=== PATIENT | female | born 1975 | race Caucasian/White ===

== ENCOUNTER 2018-02-22 14:06 | Emergency (ER) | payer MEDICARE, OTHER ==
--- NOTE | 2018-02-22 16:00 | RAD ---
FOUR VIEWS LEFT KNEE: 02/22/18 HISTORY: Fall with left knee pain. AP, lateral and both oblique views left knee is obtained. Images demonstrate a mildly displaced oblique fracture through the distal left femoral metaphysis. Pr oximal and distal fracture fragments are not significantly displaced. IMPRESSION: Spiral type oblique fracture distal left femoral metaphysis. POS: C
== END 2018-02-22 17:06 | disposition home or self-care (01) ==
LOC: ERS 14:06
DX: S72.345A Nondisplaced spiral fracture of shaft of left femur, initial encounter for closed fracture (principal); W17.89XA Other fall from one level to another, initial encounter

== ENCOUNTER 2018-05-05 18:58 | Inpatient (IN) | payer MEDICARE, OTHER ==
[~2018-05-05 18:58] MED LIST: Heparin 1,000 UNITS/ML VIAL ONE
[2018-05-05] MEDS ORDERED: Ondansetron ODT 4 MG TAB PO PRN (22:55)
[2018-05-05] MEDS ORDERED: Calcium Carbonate 500 MG ChewTAB PO PRN (22:55)
[2018-05-05] MEDS ORDERED: Acetaminophen 500 MG TAB PO PRN (22:55)
[2018-05-05] MEDS ORDERED: Ondansetron PF 4 MG/2 ML Vial IVP PRN (22:55)
[2018-05-05] MEDS ORDERED: [UNRECOGNIZED DRUG - OTHER] IV SCH (23:15)
--- NOTE | 2018-05-05 23:27 | PDOC.FPRHP ---
- History of Present Illness Chief Complaint: weight loss History of Present Illness: 43 yo female with pmhx of longstanding anorexia and bulemia presents from clinic as a direct admit for an acute decline in pt's BMI over the past month. One month ago, pt's BMI was 12, weighing 87 lbs and today at clinic she weight 81 pounds with a BMI of 11. She also recently (February 2018) was evaluated in the ER for a femur fracture and was told to follow-up with ortho however upon trying to go to her appointment, she didn't have her ID and was unable to be seen at her appointment. She is able to walk but still has pain in her left leg with walking. She endorses a chronic hx of fractures 2/2 osteoporosis and frequent falls. She has pins in both hips, prior fractures in both, as well as prior fractures in her left humerus, wrists b/l, and ankles. She states that her eating d/o started in high school after not graduating. She initially started out restricting foods, has tried laxatives in the past, and currently purges after eating. Some days, she doesn't eat at all, and some days when she does eat, she can't help but vomit. She has tried hospitalizations in the past but most recently was being seen by outpatient therapist. Her triggers include being around her father and more recently the stress of the fact that her mom was diagnosed with brain cancer in the summer. She also endorses a pmhx of anxiety and depression. Denies any SI/HI/AVh but endorses a passive hx of thinking about how things would be better if she wasn't around, but also wants people who struggle with what she does, to learn from her. - Allergies/Adverse Reactions Allergies Allergy/AdvReac Type Severity Reaction Status Date / Time No Known Allergies Allergy Unverified 05/05/18 22:56 - History PMHx:Anorexia, Bulimia, Depression, Anxiety, Osteoporosis, Recent left femur fracture PSHx: B/l hip surgery with pin placement 2/2 fractures FHx: Mom-brain cancer, no family hx of eating d/o Social: Lives with brother and mom, father is estranged and is a stressor/ trigger for her eating d/o sx - Review of Systems General: reports: weight/appetite/sleep changes, fatigue. denies: fever/chills ENT: denies: nasal congestion, rhinorrhea Respiratory: denies: cough, congestion, shortness of breath Cardiovascular: denies: chest pain, palpitation Gastrointestinal: reports: vomiting. denies: nausea, diarrhea, abdominal pain Genitourinary: denies: incontinence, dysuria Skin: denies: rashes, lesions Musculoskeletal: reports: pain (left femur, right wrist pain), stiffness (right wrist), swelling (right wrist) Neurological: denies: numbness, syncope Psychological: reports: anxiety, depression - Vital signs BP: 91/60 HR: 71 RR: 18 Tmax: afebrilie Pox: 99% on RA Wt: 36kg (81 lbs) - Physical Exam Constitutional: NAD, awake, alert and oriented HEENT: normocephalic and atraumatic, other (wasting) Heart: RRR, normal S1/S2, no murmurs/rubs/gallops Lungs: CTAB, no respiratory distress, good air movement, no rales/rhonchi, no wheezing, no retractions Abdomen: soft Musculoskeletal: other (frail, unsteady gait) Skin: no rash/lesions Psychiatric: other (depressed mood and congruent affect; speech with regular rate, rhythm, flight of ideas, a&ox3, passive SI, no active plan, no HI/AVH, no delusions, fair insight and judgement, appropriately dressed, agitated/anxious, tearful) FMR H&P: A/P - Problem List (1) Malnutrition due to starvation Current Visit: Yes Status: Acute Code(s): E46 - UNSPECIFIED PROTEIN-CALORIE MALNUTRITION (2) Anorexia nervosa with bulimia Current Visit: Yes Status: Acute Code(s): F50.02 - ANOREXIA NERVOSA, BINGE EATING/PURGING TYPE (3) Anxiety Current Visit: Yes Status: Acute Code(s): F41.9 - ANXIETY DISORDER, UNSPECIFIED (4) Depression Current Visit: Yes Status: Acute Code(s): F32.9 - MAJOR DEPRESSIVE DISORDER , SINGLE EPISODE, UNSPECIFIED (5) Osteoporosis Current Visit: Yes Status: Acute Code(s): M81.0 - AGE-RELATED OSTEOPOROSIS W /O CURRENT PATHOLOGICAL FRACTURE (6) Femur fracture, left Current Visit: Yes Status: Acute Code(s): S72.92XA - UNSP FRACTURE OF LEFT FEMUR, INIT ENCNTR FOR CLOSED FRACTURE - Plan 43 yo f with anorexia/bulimia admitted for malnutrition. #Malnutrition -BMI 11; recent decline from 87 lbsto 81lbs. Ordered baseline labs including cbc , cmp, mg, ph, prealbumin, flp, iron studies, coags, vit b12 and folate. Also ordered an EKG. Placed an order for TPN and a picc line, IV fluids of d5 LR with 20KCL at 75ml/hr. Consulted dietitian and cm for placement after hospitalization. Ordered PT/OT consult as well. Pt is open to considering inpatient vs outpatient rehab. Recommend calling Dr. Coffey in the am for recommendations regarding meds and placement options. Hx of several hospitalizations and outpatient therapy. Unclear if ever admitted to inpatient rehab for eating disorder. Will monitor for refeeding syndrome. Started ensure enlive bid. Recommended that a nurse be at bedside during meals, and for patient to report when she vomits. Ordered daily weights, strict I/O's. #Anorexia/Bulimia-see above #left femur fracture- -consult ortho in am; injury in January 2018. #osteoporosis- -consider starting alendronate. -hx of multiple fractures. #MDE-No active SI. Passive thoughts. Restarted zoloft 100mg BID. Started remeron at night for depressive and appetite stimulant. #Anxiety-see above #Gerd-started protonix daily. DVT prophylaxis: lovenox Code: Full code FMR H&P: Upper Level - Plan Date/Time: 05/05/18 2140 I, [], have evaluated this patient and agree with findings/plan as outlined by property management intern resident. Pertinent changes/additions are listed here. Attending Addendum - Attending Addendum Date/Time: 05/06/18 3510 I personally evaluated the patient and discussed the management with Dr. Glover I agree with the History, Examination, Assessment and Plan documented above with any addition or exceptions noted below. 43 yo female with history of osteoporosis and chronic anorexia admitted to hospital for recent fracture and malnutrition. Patient continues to loose weight. Currently under significant stress related to her mother new diagnosis of "brain cancer." Patient states she has battled with anorexia since 19 years old. Has been in and out of treatment programs both inpatient and outpatient. Last treatment program was several years ago. Reports multiple episodes of emesis. Denies over exercising or laxative abuse. Note increase depression with frequent and spontaneous crying spells. Multiple fractures to upper and lower extremities throughout the year with minimal trauma. Reports thinking about being "better off dying" but denies having a plan. No hallucinations or HI. No past history of suicide attempt. Reports she could never hurt herself and realizes she is very depressed. Interested in getting help. VS reviewed. Anorexia norvosa: Chronic. Interested in inpatient vs outpatient treatment program. Labs pending. Place on tele. EKG to be done. Will monitor for refeeding syndrome. Will start TPN. Based on labs and other findings will need to discuss and determine half-way nutrition goals. Denies a past history of PEG tube. But might need to be discussed if patient refusing to eat and labs concerning. PICC line order placed. Nutrition consulted. Will discussed case with psych in AM. MMD: Intermittent SI noted per history. No suicide attempt reported. No plan at present. Has been on Zoloft for many years. Discussed other options. Will add remeron for now. Does not appear to have other co-morbid conditions as previously diagnosed. Discussed requesting records but patient unsure of names of facilities. Will review case with psych. Mehran
[2018-05-05] MEDS ORDERED: D5 LR w/20 mEq KCL 1,000 ML IV SCH (23:30)
[2018-05-06 04:47] LABS: #Eosinphils 0.1 thou/uL (0.0-0.7); #Lymphocytes 1.3 thou/uL (1.20-3.40); #Monocytes 0.6 thou/uL (0.11-0.59); #Neutrophils 3.7 thou/uL (1.40-6.50); %Basophils 0.6 % (0.0-1.0); %Eosinophils 1.7 % (0.0-10.0); %Lymphocytes 22.3 % (21.0-51.0); %Monocytes 10.2 % (0.0-10.0); %Neutrophils 65.2 % (42.0-75.0); Hemoglobin 12.5 g/dL (12.0-16.0); Mean Corpuscular HGB CONC 32.1 g/dL (32.0-36.0); Mean Corpuscular Volume 96.6 fL (78.0-98.0); Mean Platelet Volume 11.7 fL (7.4-10.4); Platelet Count 128 thou/uL (130-400); Red Blood Cell (RBC) Count 4.03 mill/uL (4.20-5.40); White Blood Cell (WBC) Count 5.7 thou/uL (4.8-10.8)
[2018-05-06 04:54] LABS: Prothrombin Time 13.2 SEC (12.0-14.7)
[2018-05-06 04:55] LABS: PTT 32.6 SEC (22.9-36.1)
[2018-05-06 05:04] LABS: ALT (SGPT) 11 U/L (8-55); AST (SGOT) 25 U/L (5-34); Albumin 3.1 g/dL (3.5-5.0); Alkaline Phosphatase 109 U/L (40-150); Anion Gap 13 mmol/L (10-20); BUN (Urea Nitrogen) 9 mg/dL (7.0-18.7); Bilirubin, Total 0.2 mg/dL (0.2-1.2); Calc. Creatinine Clearance 52 mL/min (70-130); Calcium 8.6 mg/dL (7.8-10.44); Carbon Dioxide 26 mmol/L (22-29); Cardiac Risk 2.2 (Less than 4.5); Chloride 107 mmol/L (98-107); Cholesterol 156 mg/dl (< 200 Desired); Estimated GFR-MDRD 78; Globulin 2.6 g/dL (2.4-3.5); Glucose 94 mg/dL (70-105); HDL Cholesterol 70 mg/dL (>60 Neg Risk); Iron 45 ug/dL (50-170); LDL Cholesterol, Calculated 72 mg/dL; Phosphorus 3.3 mg/dL (2.3-4.7); Potassium 3.5 mmol/L (3.5-5.1); Protein, Total 5.7 g/dL (6.0-8.3); Sodium 142 mmol/L (136-145); Triglycerides 68 mg/dL (Less than 150)
[2018-05-06 07:22] LABS: BHCG - Serum Negative (NEGATIVE); Pregs Control Background? CLEAR/WHITE (CLR/WHITE); Pregs Control Bar Appear? YES (CONTROL BAR)
[2018-05-06 07:50] LABS: Thyroid Stimulating Hormone 0.9608 uIU/mL (0.35-4.94); Vitamin D, 25 Hydroxy 14.6 ng/ml (> 30.0)
--- NOTE | 2018-05-06 08:39 | PDOC.FM ---
- Subjective Subjective: This morning patient states she slept as well as she has in a long time. She denies cp, sob, N/V/D. She is still quite upset about her mother's condition. She says she will consider inpatient treatment - Objective Vital Signs & Weight: Vital Signs (12 hours) Temp Pulse Resp BP BP BP BP 05/06/18 08:25 54 L 70/50 L 05/06/18 08:20 57 L 74/52 L 05/06/18 08:15 97.9 F 51 L 18 82/58 L 05/06/18 05:13 85/55 L 05/06/18 03:54 97.7 F 60 14 78/41 L Pulse Ox 05/06/18 08:25 05/06/18 08:20 05/06/18 08:15 96 05/06/18 05:13 05/06/18 03:54 97 Weight Weight 36.514 kg I&O: 05/05/18 05/06/18 05/07/18 06:59 06:59 06:59 Intake Total 600 Output Total 400 Balance 200 Result Diagrams: 05/06/18 04:29 05/06/18 04:29 <Rishabh De Leon - Last Filed: 05/06/18 08:37> - Objective Vital Signs & Weight: Vital Signs (12 hours) Temp Pulse Resp BP BP BP BP 05/06/18 08:25 54 L 70/50 L 05/06/18 08:20 57 L 74/52 L 05/06/18 08:15 97.9 F 51 L 18 82/58 L 05/06/18 05:13 85/55 L 05/06/18 03:54 97.7 F 60 14 78/41 L Pulse Ox 05/06/18 08:25 05/06/18 08:20 05/06/18 08:15 96 05/06/18 05:13 05/06/18 03:54 97 Weight Weight 36.514 kg I&O: 05/05/18 05/06/18 05/07/18 06:59 06:59 06:59 Intake Total 600 Output Total 400 Balance 200 Result Diagrams: 05/06/18 04:29 05/06/18 04:29 <Jose Rubio - Last Filed: 05/06/18 11:33> Phys Exam - Physical Examination Constitutional: NAD HEENT: PERRLA, moist MMs Respiratory: no wheezing, clear to auscultation bilateral Cardiovascular: RRR, no significant murmur Gastrointestinal: soft, non-tender, no distention, positive bowel sounds Musculoskeletal: pulses present Neurological: non-focal, moves all 4 limbs Skin: no rash, cap refill <2 seconds <Rishabh De Leon - Last Filed: 05/06/18 08:37> Dx/Plan (1) Anorexia nervosa with bulimia Code(s): F50.02 - ANOREXIA NERVOSA, BINGE EATING/PURGING TYPE Status: Acute (2) Anxiety Code(s): F41.9 - ANXIETY DISORDER, UNSPECIFIED Status: Acute (3) Depression Code(s): F32.9 - MAJOR DEPRESSIVE DISORDER, SINGLE EPISODE, UNSPECIFIED Status : Acute (4) Femur fracture, left Code(s): S72.92XA - UNSP FRACTURE OF LEFT FEMUR, INIT ENCNTR FOR CLOSED FRACTURE Status: Acute (5) Malnutrition due to starvation Code(s): E46 - UNSPECIFIED PROTEIN-CALORIE MALNUTRITION Status: Acute (6) Osteoporosis Code(s): M81.0 - AGE-RELATED OSTEOPOROSIS W/O CURRENT PATHOLOGICAL FRACTURE Status: Acute - Plan Plan: #Malnutrition 2/2 Anorexia/Bulimia - low pre-albumin - mag, phos, b12 INR WNL - ordered PICC placement to start TPN - data manager consulted - discussed gravity of patient's condition, she understands she will likely need inpatient treatment, wants brother involved - consult [facility] - ordered echo 2/2 BMI of 11 #left femur fracture- -fall in January 2018, was supposed to follow with ortho, never did - will wait to consult until X-rays taken #osteoporosis- -hx of multiple fractures. #MDE-No active SI. Passive thoughts. Restarted zoloft 100mg BID. Started remeron at night for depressive and appetite stimulant. - zoloft 100mg BID - mirtazapine #Anxiety-see above #Gerd - ppi Code: Full code ppx: lovenox Fluids: D5 LR w/ K at 75 ml/hr Dispo: pending inpatient placement <Rishabh De Leon - Last Filed: 05/06/18 08:37> Attending Addendum - Attending Addendum Date/Time: 05/06/18 1130 I personally evaluated the patient and discussed the management with Dr. Donny De Leon I agree with the History, Examination, Assessment and Plan documented above with any addition or exceptions noted below. Patient for Picc line for TPN , will need Orthopedic consult regard further care evaluation femur fracture. Watch for re feeding syndrome Phosphorous currently wnl. custodial patient would benefit with placement in inpatient facility for feeding disorders, patient agreeable to consider. <Jose Rubio - Last Filed: 05/06/18 11:33>
[2018-05-06] MEDS: Multivit, Chewable SF 1 TAB PO SCH (09:34)
[2018-05-06] MEDS: Enoxaparin Sodium 40 MG/0.4 ML SYRINGE SC SCH (09:34)
--- NOTE | 2018-05-06 11:44 | PQF ---
CLINICAL DOCUMENTATION IMPROVEMENT CLARIFICATION FORM: ICD-10 Updated PLEASE DO AN ADDENDUM TO THE PROGRESS NOTE WITH ANY DOCUMENTATION UPDATES OR ADDITIONS AND CARRY THROUGH TO DC SUMMARY. THANK YOU. Date: 05/06/18 ATTN: DR. OMER Please exercise your independent, professional judgment in responding to the clarification form. Clinical indicators are provided on the bottom of this form for your review Please check appropriate box(s): [ x ] Protein Calorie Malnutrition: [ ] Mild [ ] Moderate [ x ] Severe [ ] Other Malnutrition (please specify) __ [ ] Underweight without malnutrition [ x ] Cachexia [ ] Other diagnosis [ ] Unable to determine In addition, please specify: Present on Admission (POA): [ x ] Yes [ ] No [ ] Unable to determine CLINICAL INDICATORS - SIGNS / SYMPTOMS / LABS H&P DX: "MALNUTRITION DUE TO STARVATION" H&P: "ACUTE DECLINE OF PATIENT'S BMI OVER THE PAST MONTH." H&P: "SOME DAYS, SHE DOESN'T EAT AT ALL, AND SOME DAYS WHEN SHE DOES EAT, SHE CAN'T HELP BUT VOMIT." BMI 10.9 ALBUMIN 3.1 RISKS: ANOREXIA (H&P) BULIMIA (H&P) H/O MULTIPLE FRACTURES H/O ANXIETY AND DEPRESSION H/O SEVERAL HOSPITALIZATIONS AND OUTPATIENT THERAPY (H&P) TREATMENT: DIETARY CONSULT OT CONSULT NURSING SUPERVISION FOR VOMITING / NURSE AT BEDSIDE FOR MEALS DAILY WEIGHTS WITH STRICT I&OS TPN ORDERED IV HYDRATION ENSURE ENLIVE ORDERED BID [employer] Addiction Professional Crystal Reports Winform Viewer Moderate Malnutrition (in acute illness) Energy Intake: <75% of estimated energy requirement for > 7 days Weight Loss: 1-2%/1 week; 5%/ 1 month; 7.5%/3 months Other: mild body fat loss; mild muscle mass loss; mild fluid accumulation; Severe Malnutrition (in acute illness) Energy Intake: < 50% of estimated energy requirement for > 5 days Weight Loss: >1-2%/1 week; >5%/1 month; >7.5%/3 months Other: moderate body fat loss; moderate muscle mass loss; moderate- severe fluid accumulation; measurably reduced sanitarian strength Moderate Malnutrition (in chronic illness) Energy Intake: <75% of estimated energy requirement for >1 month Weight Loss: 5%/1 month; 7.5%/3 months; 10%/6 months; 20%/1 year Other: mild body fat loss; mild muscle mass loss; mild fluid accumulation Severe Malnutrition (in chronic illness) Energy Intake: <75% of estimated energy requirement for >1 month Weight Loss: >5%/1 month; >7.5%/3 months; >10%/6 months; >20%/1 year Other: severe body fat loss; severe muscle mass loss; severe fluid accumulation ; measurably reduced sanitarian strength (This form is maintained as a part of the permanent medical record) 2014 [employer] All Rights Reserved JUSTINA [email or web address] Office: [phone] [email or web address]
[2018-05-06] MEDS: Potassium Chloride 20 MEQ TAB PO SCH ×2 (12:26→17:02)
--- NOTE | 2018-05-06 12:34 | RAD ---
THREE VIEWS RIGHT WRIST: DATE: 05/06/2018. HISTORY: Right wrist pain. COMPARISON: None available. FINDINGS: There is a volar plate and screws transfixing the distal right radius. There is an area of sclerosis also seen within the distal right radial metaphysis and partially obscured due to overlying ulna on the lateral view and obscured due to overlying plate on PA and oblique projections. This may be post surgical in origin as well. There is a remote fracture involving the ulnar styloid process. There i s mild ulnar positive configuration with remote fracture involving the ulnar styloid process. There is osteopenia present. There is osseous bridging seen at the dorsal aspect of the carpal bones which involves the triquetral bone and is probably related to the sequelae of prior injury. IMPRESSION: 1. osteopenia. 2. Internal fixation distal right radius with remote fracture involving the ulnar styloid process. 3. Area of sclerosis in the distal right radial metaphysis of which the exact etiology is uncertain and is difficult to evaluate due to overlying metallic hardware as well as overlying ulna on the late ral view. This is thought to be postsurgical in origin, but clinical correlation is recommended. Di rect comparison with prior studies may also be helpful as well. 4. Remote fracture ulnar styloid process as well as findings likely related to posttraumatic injury involving the dorsal carpal bones with osseous bridging present. POS: [facility]
--- NOTE | 2018-05-06 12:40 | RAD ---
TWO VIEWS LEFT FEMUR: DATE: 05/06/2018. HISTORY: Recent femur fracture. COMPARISON: 04/14/2018. FINDINGS: Again noted is intramedullary nitza with a dynamic compression screw transfixing the left hip. No hard lewis complication is seen. Again noted is the linear nondisplaced obliquely oriented fracture involv ing the distal left femoral diaphysis extending to the region of the metadiaphysis. No additional fr acture is seen and there is no dislocation. Diffuse osteopenia is again present. No other interval change. IMPRESSION: 1. Nondisplaced linear fracture involving the distal left femur stable from prior study. 2. Stable internal fixation left hip. 3. Osteopenia. POS: [facility]
--- NOTE | 2018-05-06 12:52 | SPC ---
ULTRASOUND GUIDED LEFT UPPER EXTREMITY PICC LINE PLACEMENT: 05/06/2018 HISTORY: Malnutrition. TECHNIQUE: After informed consent was obtained, the patient was placed on the angiography table in the supine po sition. The left upper extremity was meticulously prepped and draped in the usual sterile fashion. An appropriate access site was determined with ultrasound guidance. The skin and subcutaneous tissues were infiltrated with buffered 1% Lidocaine for local anesthesia. A small skin incision was made. The left basilic vein was accessed utilizing a micropuncture technKloudless ue and concurrent real-time ultrasound guidance. A 5 Kyrgyz peel-away sheath was placed. The catheter was measured and cut to the appropriate length. The catheter was placed over the guidew laurel with the tip position overlying the cavoatrial junction. The guidewire and peel-away sheath were removed. Each portal on the double-lumen PICC line was accessed and aspirated/flushed easily. The catheter was secured in place utilizing a dry, sterile dressing. The patient tolerated the proce dure well and without immediate complications. TOTAL FLUOROSCOPY TIME: 0.1 minutes TOTAL DOSE: 153 per cm2. FINDINGS: Technically successful placement of a dual-lumen, 5 Kyrgyz, 40 cm PICC line via the left basilic vein . The tip of the catheter overlies the cavoatrial junction. IMPRESSION: Technically successful left upper extremity peripherally inserted central catheter line placement. POS: [facility]
[2018-05-06] MEDS: Gabapentin 300 MG CAP PO SCH ×2 (14:51→20:30)
[2018-05-06] MEDS: Mirtazapine 15 MG TAB PO SCH (20:30)
--- NOTE | 2018-05-06 21:01 | CON ---
HISTORY OF PRESENT ILLNESS: Ms. Raza is a 43-year-old female who is currently admitted for malnutrition. The patient has a history of anorexia and bulimia. She is a direct admit from the clinic. The patient had a femur fracture that occurred sometime in January. Per report, she was seen in February in the ER with films of her knee showing a distal femur fracture. She then lost to follow up. The patient has a history of osteoporosis with frequent falls. The patient has prior intramedullary nailing for intertrochanteric hip fractures bilaterally. The patient has a history of malnourishment secondary to anorexia and bulimia. The patient has had issues with her father as well as she says her mother currently struggling with brain cancer. PAST MEDICAL HISTORY: Includes anorexia, bulimia, depression, anxiety, osteoporosis, bilateral femur fractures. PAST SURGICAL HISTORY: Bilateral hip surgery with open reduction and internal fixation, intramedullary nailing. CURRENT MEDICATIONS: Please see list. ALLERGIES: Include no known drug allergies. SOCIAL HISTORY: Lives with brother, mother, and father is estranged. PHYSICAL EXAMINATION: VITAL SIGNS: Today were 98.1, 58, 16, 90/52. GENERAL: Alert and oriented female, cachectic with diffuse wasting. EXTREMITIES: Focused exam of left lower extremity shows no ecchymosis, no erythema, no effusion of the knee. The patient has severe atrophy of her quadriceps and hamstrings. She is able to bend her knee. She does have pain with torsion of the left leg and pain with palpation. She has got motor intact distally. She has got sluggish cap refill, palpable pulses. LABORATORY AND X-RAY FINDINGS: Radiographs show a left spiral extraarticular fracture of the distal femur. IMPRESSION: 1. Left distal femur fracture. 2. Malnutrition due to her anorexia and bulimia. 3. Anxiety. 4. Depression. ASSESSMENT AND PLAN: The patient will be weightbearing as tolerated with a walker. She has been weightbearing for the last several months. She does have pain with ambulation so we will protect her with walker but given that she is almost likely greater than 3 months out from a fracture and would like to help with consolidation of the fracture, I discussed with given her eating habits and her severe nutrition that she will take much longer to heal this fracture. I will have the patient follow up with me in 6 weeks in clinic. The patient will likely need transfer to a psychiatric unit for continued care. ARNOLD
--- NOTE | 2018-05-07 06:37 | PDOC.FM ---
Addendum entered and electronically signed by Rishabh De Leon MD 05/07/18 07:06: Patient noted to have 3-4 runs of 6 beat NSVT on tele overnight echo read pending Cardiac profile ordered, EKG Will discuss cardiology consult on rounds Original Note: - Subjective Subjective: Patient states she is feeling well this morning, slept well last night. She denies any pain at the moment, was able to walk to the restroom without difficulty. She denies N/V/D or difficulty. Appreciate CM awesome work last night. What patient really needs is placement in a facility specializing in care for eating disorders. If we can obtain placement in one of these facilities she is stable for d/c to one of these facilities. Inpatient rehab would be beneficial for her but the best care would be at one of the aforementioned facilities. - Objective Vital Signs & Weight: Vital Signs (12 hours) Temp Pulse Resp BP Pulse Ox 05/07/18 03:56 97.6 F 52 L 16 99/57 L 100 05/06/18 20:09 98 05/06/18 19:56 98.4 F 68 14 75/48 L 98 Weight Admit Weight 36.514 kg Weight 36.514 kg I&O: 05/05/18 05/06/18 05/07/18 06:59 06:59 06:59 Intake Total 600 1053 Output Total 400 Balance 200 1053 Result Diagrams: 05/06/18 04:29 05/06/18 04:29 <Rishabh De Leon - Last Filed: 05/07/18 06:39> - Objective Vital Signs & Weight: Vital Signs (12 hours) Temp Pulse Resp BP Pulse Ox 05/07/18 03:56 97.6 F 52 L 16 99/57 L 100 Weight Admit Weight 36.514 kg Weight 36.514 kg I&O: 05/06/18 05/07/18 05/08/18 06:59 06:59 06:59 Intake Total 600 1053 Output Total 400 Balance 200 1053 Result Diagrams: 05/06/18 04:29 05/07/18 07:42 <Jose Rubio - Last Filed: 05/07/18 12:42> Phys Exam - Physical Examination Constitutional: NAD HEENT: PERRLA, moist MMs Neck: no nodes Respiratory: no wheezing, clear to auscultation bilateral Cardiovascular: RRR, no significant murmur Gastrointestinal: soft, non-tender, no distention, positive bowel sounds Musculoskeletal: no edema, pulses present Neurological: non-focal, moves all 4 limbs Psychiatric: normal affect, A&O x 3 Skin: no rash, cap refill <2 seconds <Rishabh De Leon - Last Filed: 05/07/18 06:39> Dx/Plan (1) Anorexia nervosa with bulimia Code(s): F50.02 - ANOREXIA NERVOSA, BINGE EATING/PURGING TYPE Status: Acute (2) Anxiety Code(s): F41.9 - ANXIETY DISORDER, UNSPECIFIED Status: Acute (3) Depression Code(s): F32.9 - MAJOR DEPRESSIVE DISORDER, SINGLE EPISODE, UNSPECIFIED Status : Acute (4) Femur fracture, left Code(s): S72.92XA - UNSP FRACTURE OF LEFT FEMUR, INIT ENCNTR FOR CLOSED FRACTURE Status: Acute (5) Malnutrition due to starvation Code(s): E46 - UNSPECIFIED PROTEIN-CALORIE MALNUTRITION Status: Acute (6) Osteoporosis Code(s): M81.0 - AGE-RELATED OSTEOPOROSIS W/O CURRENT PATHOLOGICAL FRACTURE Status: Acute - Plan Plan: # Malnutrition 2/2 Anorexia/Bulimia - low pre-albumin - mag, phos, b12 INR WNL - repeat phos - Vit D low - office manager receptionist consulted, appreciate recs - discussed gravity of patient's condition, she understands she will likely need inpatient treatment, wants brother involved - holding off on TPN for now because she is eating while in the hospital - consult [facility] - ordered echo 2/2 BMI of 11, pending read #left femur fracture- stable - fall in January 2018, was supposed to follow with ortho - Dr. Funez consulted, appreciate recs - rec'd walker, f/u in 6-8 wks #osteoporosis- -hx of multiple fractures. #MDE-No active SI. Passive thoughts. - zoloft 100mg BID - mirtazapine #Anxiety-see above #Gerd - ppi Code: Full code ppx: lovenox Fluids: D5 LR w/ K at 75 ml/hr Dispo: pending inpatient placement <Rishabh De Leon - Last Filed: 05/07/18 06:39> Attending Addendum - Attending Addendum Date/Time: 05/07/18 1241 I personally evaluated the patient and discussed the management with Dr. Bree De Leon I agree with the History, Examination, Assessment and Plan documented above with any addition or exceptions noted below. Appreciate Orthopedic rec continue attempt placement in eating d/o facility verse rehab. <Jose Rubio - Last Filed: 05/07/18 12:42>
[2018-05-07 08:27] LABS: CKMB 2.1 ng/mL (0-6.6); Troponin I Less than 0.010 ng/mL (< 0.028)
[2018-05-07 08:34] LABS: Anion Gap 9 mmol/L (10-20); BUN (Urea Nitrogen) 7 mg/dL (7.0-18.7); Calc. Creatinine Clearance 59 mL/min (70-130); Calcium 8.7 mg/dL (7.8-10.44); Carbon Dioxide 26 mmol/L (22-29); Chloride 111 mmol/L (98-107); Estimated GFR-MDRD 89; Glucose 71 mg/dL (70-105); Phosphorus 2.6 mg/dL (2.3-4.7); Potassium 4.8 mmol/L (3.5-5.1); Sodium 141 mmol/L (136-145)
[2018-05-07] MEDS: Multivit, Chewable SF 1 TAB PO SCH (09:50)
[2018-05-07] MEDS: Gabapentin 300 MG CAP PO SCH ×3 (09:51→21:19)
[2018-05-07] MEDS: Cholecalciferol (Vitamin D3) 400 UNITS TAB PO SCH (09:51)
[2018-05-07] MEDS: Enoxaparin Sodium 40 MG/0.4 ML SYRINGE SC SCH (09:51)
[2018-05-07] MEDS: Potassium Chloride 20 MEQ TAB PO SCH ×3 (09:51→17:40)
[2018-05-07] MEDS: Mirtazapine 15 MG TAB PO SCH (21:19)
--- NOTE | 2018-05-07 22:59 | CON ---
DATE OF CONSULTATION: 05/07/2018 CARDIOLOGY CONSULT ROOM#: [id number] PRIMARY ADMIN SECRETARY: Dr. Latha Lu. REASON FOR CARDIOLOGY CONSULTATION: Status post multiple episodes of six beats of SVT night of the 1 . HISTORY OF PRESENT ILLNESS: Ms. Raza is a 43-year-old female with a significant history of anorexia and bulimia, depression, and history of bilateral hip surgery secondary to fracture. Da penn was a direct admit from clinic for acute decline of patient's BMI over the past month and the C ardiology consult was requested due to the multiple episodes of 6 beats of SVT last night. Patient d enied any chest pain, discomfort, tightness, or palpitation, fluttering in her chest, shortness of br eath, dizziness, lightheadedness, nauseated, or any cardiac complaints prior and during the episodes. She also denied any those cardiac complaints at home. She has a significant long history of anorex ia and bulimia and also complained of bilateral hip. The pain to the bilateral hip due to secondary to the fracture. At this moment, she is eating dinner without any difficulty or nausea or vomiting. During the initial Cardiology consult assessment, patient denied any cardiac complaints. She has ec hocardiogram done on 05/06/2018, which shows ejection fraction of 35%-40%, trace mitral valve regurgi tation and mild tricuspid regurgitation. Patient's EKG on the telemetry floor records showing the si nus rhythm. PAST MEDICAL HISTORY: 1. Anorexia. 2. Bulimia. 3. Depression, anxiety. 4. Osteoporosis. 5. Recent left femur fracture. PAST SURGICAL HISTORY: Bilateral hip surgery in the pin placement secondary to fracture. FAMILY HISTORY: Patient's mother has a history of hypertension and brain cancer. Patient's brother and father has had history of diabetes. SOCIAL HISTORY: She is living with mother and a brother. She smoked at least 10 cigarettes a day. Patient enjoyed alcohol during the holiday and she denied any illicit drug abuse. ALLERGIES: She has no known drug allergies. HOME MEDICATIONS: Sertraline 100 mg one tablet twice a day, potassium chloride 20 mEq one tablet 3 t imes a day, gabapentin 300 mg one tablet 3 times a day. REVIEW OF SYSTEMS: A 12-point review of systems was negative, unless otherwise mentioned in the HPI. PHYSICAL EXAMINATION: VITAL SIGNS: Blood pressure 88/51, pulse is 58 in a sinus rhythm, temperature 97.8, respiratory rate 18, O2 sat 96% on room air. GENERAL: Patient is alert and oriented x4, not in acute distress with malnutrition. HEAD: Normocephalic and atraumatic. EYES: Extraocular muscle movement intact. ENT AND MOUTH: Oral and nasal mucosa are moist without lesion. NECK: Normal range of motion. No JVD and supple. RESPIRATORY: Clear to auscultate bilaterally. CARDIAC: Normal rhythm and rate, normal S1, S2. There are no S3, S4, no murmur, hives, thrill noted . EXTREMITIES: 2+ pulses at bilateral lower extremities. No edema. ABDOMEN: Soft, nontender, or mass to palpate. Positive bowel sounds. MUSCULOSKELETAL: Patient able to move all extremities. Patient denies any claudication. SKIN: Warm and dry. No rash, lesion, or bruise noted. PSYCHIATRIC: Patient is easy to get agitated; however, during the assessment, patient is become calm and smiling. NEUROLOGIC: Nonfocal. PSYCHIATRIC: Appropriate mood. LABORATORY DATA: WBC 5.7, hemoglobin 12.5, hematocrit 38.9, platelet 128. Sodium 141, potassium 4.8 , BUN 7, creatinine is 0.72, calcium 8.7, magnesium 2.6. Troponin negative. Vitamin B12 of 1175, vi tamin D is 14.6. TSH 0.9608. X-ray revealed stable intrafixation of left hip and remote fracture to the ulnar styloid process to the right wrist. ASSESSMENT AND PLAN: 1. Multiple episodes of supraventricular tachycardias. During the episode, patient was asymptomatic and patient's vital signs are stable. Patient has not had any episodes since the episodes. We woul d like to continue to monitor. At this moment on the telemetry if patient started more frequent supr aventricular tachycardia, we might like to start some beta bre, but at this moment, we would like to hold it due to the patient of hypotensive. 2. Anorexia and bulimia, which is defer to the primary care doctor. 3. Anxiety and depression. The patient's condition is stable at this moment. 4. Osteoporosis and a history of left femur fracture. Patient was seen by Dr. George Funez allucero y. Thank you very much for allowing the Cardiology service to participate in the care of this patient. We will follow along the patient care team and make further recommendations as appropriate.
--- NOTE | 2018-05-07 23:52 | CON ---
DATE OF CONSULTATION: 05/07/2018 DATE OF ADMISSION: 05/05/2018 INDICATION FOR CONSULTATION: This is a 43-year-old female with episodes of nonsustained ventricular tachycardia. Please refer to the notes already dictated by my nurse practitioner. We have discussed this with patient together. I would agree with the assessment and plan and I will give further adde ndum to the plan. HISTORY OF PRESENT ILLNESS: This is a very pleasant 43-year-old female who has what appears to be an orexia and bulimia. She was admitted due to malnutrition. She has had increased stress. She has be en using bulimia as a way of weight control for more than 20 years. She has had multiple problems as sociated with this including osteoporosis and hip fractures due to the osteoporosis with her anorexia . She also has a history of depression and anxiety. She was admitted to the hospital for further ev aluation and care, but during the hospital stay, it was noted to have some nonsustained ventricular t achycardia also echocardiogram showed a mild decrease in left ventricular systolic function with ejec tion fraction of some around 35%-40% if I recall, but the dictated note is on chart. Based on this, I was asked to see the patient, discussion with her, she is a heavy smoker. She smoked at least a pa ck to pack and half a day for probably 20 years and based on this, since this is a #1 of cause of cor onary artery disease and given her history of decreased ejection fraction and nonsustained ventricula r tachycardia. I believe, the patient will need to undergo stress testing in order to rule out evide nce for underlying coronary artery disease, as the possible etiology of the decrease in left ventricu lar systolic function as well as a nonsustained ventricular tachycardia. If the stress test is unrem arkable, then we will just add perhaps a low dose of beta blockers, so I just continue to observe her . Most likely, she will be safe with the nonsustained ventricular tachycardia. She is asymptomatic and she denied any palpitations in the past. PAST MEDICAL HISTORY, SOCIAL HISTORY, MEDICATIONS, ALLERGIES, FAMILY HISTORY: Please refer to the no rosalee dictated by the nurse practitioner. PHYSICAL EXAMINATION: GENERAL: Reveals a very thin, emaciated female who is in no acute distress at this time. She is irma y pleasant. VITAL SIGNS: Her blood pressure is 88/51, heart rate is 58. She is afebrile, respiratory rate is 18 . HEENT: Shows head to be normocephalic and atraumatic. Carotid pulses are present. There were no br uits. CHEST: Clear. CARDIOVASCULAR: Exam reveals a regular rate and rhythm. She has a normal S1, S2. I cannot hear any significant murmurs. She does have a soft murmur at the apex, otherwise is unremarkable. ABDOMEN: Flat, soft, no tenderness was noted. EXTREMITIES: All of her extremities are extremely thin and emaciated appearance. Pulses are present . NEUROLOGIC: The patient appears to be intact. LABORATORY DATA: Please refer to the notes dictated. IMPRESSION: 1. Nonsustained ventricular tachycardia in a patient with mild decrease in left ventricular systolic function and history of tobacco abuse. We will suggest that she undergo stress testing to rule out evidence for underlying ischemia. 2. Anorexia and bulimia. This will be dealt with by the primary care service. I believe, she will be sent for MR and most likely eventually, we will need to have significant therapy in the future. 3. History of tobacco abuse, she will be strongly encouraged to stop smoking altogether.
[2018-05-07] MEDS ORDERED: Nicotine 14 MG PATCH TD SCH (23:59)
[2018-05-08 05:22] LABS: Hemoglobin 11.5 g/dL (12.0-16.0); Mean Corpuscular HGB CONC 32.2 g/dL (32.0-36.0); Mean Corpuscular Hemoglobin 31.1 pg (27.0-31.0); Mean Corpuscular Volume 96.4 fL (78.0-98.0); Mean Platelet Volume 11.6 fL (7.4-10.4); Platelet Count 103 thou/uL (130-400); RBC Distribution Width 12.8 % (11.5-14.5); Red Blood Cell (RBC) Count 3.69 mill/uL (4.20-5.40); White Blood Cell (WBC) Count 4.7 thou/uL (4.8-10.8)
[2018-05-08 05:50] LABS: Anion Gap 9 mmol/L (10-20); BUN (Urea Nitrogen) 6 mg/dL (7.0-18.7); Calc. Creatinine Clearance 66 mL/min (70-130); Calcium 8.9 mg/dL (7.8-10.44); Carbon Dioxide 29 mmol/L (22-29); Chloride 110 mmol/L (98-107); Estimated GFR-MDRD Greater than 90; Glucose 81 mg/dL (70-105); Magnesium 1.7 mg/dL (1.6-2.6); Phosphorus 3.2 mg/dL (2.3-4.7); Potassium 4.7 mmol/L (3.5-5.1); Sodium 143 mmol/L (136-145)
[2018-05-08] MEDS: Nicotine 14 MG PATCH TD SCH (06:46)
--- NOTE | 2018-05-08 06:55 | PDOC.FM ---
- Subjective Subjective: Nursing note last night states patient tried to order 3 trays for supper. Patient admits to having an episode of vomiting yesterday and was quite defensive about the event. States "I don't remember what happened, when it happened, or how it happened it just did." After further conversation, she states she always used to use a straw to make herself vomit and has not done that for some time. She denies gagging herself to vomit last night. She denies palpitations, CP, or shortness of breath. No episodes noted on tele overnight. - Objective Vital Signs & Weight: Vital Signs (12 hours) Temp Pulse Resp BP BP Pulse Ox 05/08/18 05:20 98 05/08/18 04:00 97.9 F 60 20 102/60 99 05/08/18 00:40 98.4 F 80 20 102/61 96 05/07/18 20:00 98.2 F 76 20 97/54 L 100 Weight Admit Weight 36.514 kg Weight 40.115 kg I&O: 05/06/18 05/07/18 05/08/18 06:59 06:59 06:59 Intake Total 600 1053 2290 Output Total 400 400 Balance 200 1053 1890 Result Diagrams: 05/08/18 04:49 05/08/18 04:49 <Rishabh De Leon - Last Filed: 05/08/18 06:52> - Objective Vital Signs & Weight: Vital Signs (12 hours) Temp Pulse Resp BP BP BP BP 05/08/18 11:42 98.3 F 69 16 96/64 05/08/18 08:00 97.9 F 53 L 16 83/56 L 85/50 L 99/58 L 05/08/18 05:20 05/08/18 04:00 97.9 F 60 20 102/60 Pulse Ox 05/08/18 11:42 98 05/08/18 08:00 98 05/08/18 05:20 98 05/08/18 04:00 99 Weight Admit Weight 36.514 kg Weight 40.115 kg I&O: 05/07/18 05/08/18 05/09/18 06:59 06:59 06:59 Intake Total 1053 2290 Output Total 400 Balance 1053 1890 Result Diagrams: 05/08/18 04:49 05/08/18 04:49 <Jose Rubio - Last Filed: 05/08/18 13:05> Phys Exam - Physical Examination Constitutional: NAD wasted appearing HEENT: PERRLA, moist MMs Respiratory: no wheezing, no rales, no rhonchi, clear to auscultation bilateral Cardiovascular: RRR, no significant murmur Gastrointestinal: soft, non-tender, no distention, positive bowel sounds Musculoskeletal: no edema, pulses present Neurological: non-focal, moves all 4 limbs Psychiatric: normal affect, A&O x 3 Skin: no rash, cap refill <2 seconds <Rishabh De Leon - Last Filed: 05/08/18 06:52> Dx/Plan (1) Anorexia nervosa with bulimia Code(s): F50.02 - ANOREXIA NERVOSA, BINGE EATING/PURGING TYPE Status: Acute (2) Anxiety Code(s): F41.9 - ANXIETY DISORDER, UNSPECIFIED Status: Acute (3) Depression Code(s): F32.9 - MAJOR DEPRESSIVE DISORDER, SINGLE EPISODE, UNSPECIFIED Status : Acute (4) Femur fracture, left Code(s): S72.92XA - UNSP FRACTURE OF LEFT FEMUR, INIT ENCNTR FOR CLOSED FRACTURE Status: Acute (5) Malnutrition due to starvation Code(s): E46 - UNSPECIFIED PROTEIN-CALORIE MALNUTRITION Status: Acute (6) Osteoporosis Code(s): M81.0 - AGE-RELATED OSTEOPOROSIS W/O CURRENT PATHOLOGICAL FRACTURE Status: Acute - Plan Plan: # Malnutrition 2/2 Anorexia/Bulimia - vomited 05/07, monitor closely - low pre-albumin - mag, phos, b12 INR WNL - trending Phos, has been WNL - whole milk BID, nursing communication order - Vit D low, supplement - dressed poultry grader consulted, appreciate recs - patient is amenable to inpatient treatment - holding off on TPN for now because she is eating while in the hospital - consulted [facility], no recs for inpatient psych tx # NSVT- resolved - 4 episodes of 6 or so beats overnight 05/06 - history of smoking - echo shows EF 35-40% - stress test today - ultimately likely to start BB - Appreciate Cardiology recs - cont to monitor on tele # Placement - See CM notes, appreciate very hard work put in - no inpatient eating disorder facilities in [place] will accept her insurance - patient/brother may be able to call into insurance to get some sort of waiver - No PT recs for rehab - Therefore likely to go for SNF placement, states referral unlikely to go through until Wednesday #left femur fracture- stable - fall in January 2018, was supposed to follow with ortho - Dr. Funez consulted, appreciate recs - rec'd walker, f/u in 6-8 wks #osteoporosis- -hx of multiple fractures. #MDE-No active SI. Passive thoughts. - zoloft 100mg BID - mirtazapine #Anxiety-see above #Gerd - ppi Code: Full code ppx: lovenox Fluids: tko Dispo: pending inpatient placement <Rishabh De Leon - Last Filed: 05/08/18 06:52> Attending Addendum - Attending Addendum Date/Time: 05/08/18 2233 I personally evaluated the patient and discussed the management with Dr. Donny De Leon I agree with the History, Examination, Assessment and Plan documented above with any addition or exceptions noted below.Severe Anorexia nervosa with history Bulimia. Patient with weight gain since admission rec continued observation in controlled environment . Patient insurance with no eating d/o coverage in [facility] per [employer]. Appreciate recommendations per Orthopedics and Cardiology. will under stress testing r/o any ischemic etiology of runs of V-Tach continue feed and watch refeeding syndrome. Patient critically malnourished need to continue Vitamin supplementation and caloric advancement. <Jose Rubio - Last Filed: 05/08/18 13:05>
[2018-05-08] MEDS: Potassium Chloride 20 MEQ TAB PO SCH ×2 (08:33→11:48)
[2018-05-08] MEDS: Gabapentin 300 MG CAP PO SCH ×3 (08:34→20:54)
[2018-05-08] MEDS: Cholecalciferol (Vitamin D3) 400 UNITS TAB PO SCH (08:34)
[2018-05-08] MEDS: Enoxaparin Sodium 40 MG/0.4 ML SYRINGE SC SCH (08:34)
[2018-05-08] MEDS: Multivit, Chewable SF 1 TAB PO SCH (08:34)
--- NOTE | 2018-05-08 15:19 | PDOC.CTH ---
<Edilia Luevano - Last Filed: 05/08/18 15:15> Cardiology Progress Note - Subjective The pt seen and examined. No overnight events. No cardiac complaints. - Objective Vital Signs Temp Pulse Resp BP BP BP BP 05/08/18 11:42 98.3 F 69 16 96/64 05/08/18 08:00 97.9 F 53 L 16 83/56 L 85/50 L 99/58 L 05/08/18 05:20 05/08/18 04:00 97.9 F 60 20 102/60 Pulse Ox 05/08/18 11:42 98 05/08/18 08:00 98 05/08/18 05:20 98 05/08/18 04:00 99 Admit Weight 80 lb 8 oz Weight 88 lb 7 oz 05/07/18 05/08/18 05/09/18 06:59 06:59 06:59 Intake Total 1053 2290 Output Total 400 Balance 1053 1890 - Physical Examination General/Neuro: alert & oriented x3 Neck: no JVD present Lungs: CTA Heart: RRR Abdomen: soft Extremities: other: (No edema) - Telemetry Telemetry Rhythm: SR - Labs Result Diagrams: 05/08/18 04:49 05/08/18 04:49 Troponin/CKMB CK-MB (CK-2) 2.1 ng/mL (0-6.6) 05/07/18 07:42 Troponin I Less than 0.010 ng/mL (< 0.028) 05/07/18 07:42 - Assessment/Plan 1. S/p several episodes of NSVTs with decreased EF - her stress test will be completed tomorrow; Asymptomatic 2. Anorexia nervosa with bulimia - 3. Anxiety and depression - 4. Hx of Lt fem fx in 12/2017 - 5. Current smoker - smoking cessation education given to the pt. MAR reviewed Review of Systems - Review of Systems Constitutional: reports: no symptoms reported EENTM: reports: no symptoms reported Respiratory: reports: no symptoms reported Cardiac (ROS): reports: no symptoms reported ABD/GI: reports: no symptoms reported : reports: no symptoms reported Musculoskeletal: reports: no symptoms reported Skin: reports: no symptoms reported Neurological: reports: no symptoms reported <Cherise uL - Last Filed: 05/08/18 22:31> Cardiology Progress Note - Objective Vital Signs Temp Pulse Resp BP Pulse Ox 05/08/18 16:19 98.9 F 74 16 90/53 L 97 05/08/18 11:42 98.3 F 69 16 96/64 98 Admit Weight 80 lb 8 oz Weight 88 lb 7 oz 05/07/18 05/08/18 05/09/18 06:59 06:59 06:59 Intake Total 1053 2290 965 Output Total 400 Balance 1053 1890 965 - Labs Result Diagrams: 05/08/18 04:49 05/08/18 04:49 Troponin/CKMB CK-MB (CK-2) 2.1 ng/mL (0-6.6) 05/07/18 07:42 Troponin I Less than 0.010 ng/mL (< 0.028) 05/07/18 07:42 - Assessment/Plan Pt. seen and evaluated by me. I agree with the A/P by the CNC SERVICE TECHNICIAN. We have discussed the pt. and the plan.Chest clear RRR.
[2018-05-08] MEDS: Mirtazapine 15 MG TAB PO SCH (20:53)
[2018-05-09 05:54] LABS: Anion Gap 9 mmol/L (10-20); BUN (Urea Nitrogen) 7 mg/dL (7.0-18.7); Calc. Creatinine Clearance 65 mL/min (70-130); Calcium 8.8 mg/dL (7.8-10.44); Carbon Dioxide 24 mmol/L (22-29); Chloride 110 mmol/L (98-107); Estimated GFR-MDRD 90; Glucose 84 mg/dL (70-105); Phosphorus 3.5 mg/dL (2.3-4.7); Potassium 4.4 mmol/L (3.5-5.1); Sodium 139 mmol/L (136-145)
[2018-05-09] MEDS: Nicotine 14 MG PATCH TD SCH (06:23)
[2018-05-09] MEDS: Cholecalciferol (Vitamin D3) 400 UNITS TAB PO SCH (06:24)
[2018-05-09] MEDS: Gabapentin 300 MG CAP PO SCH ×3 (06:24→20:28)
[2018-05-09] MEDS: Multivit, Chewable SF 1 TAB PO SCH (06:25)
[2018-05-09] MEDS: Enoxaparin Sodium 40 MG/0.4 ML SYRINGE SC SCH (06:27)
[2018-05-09 07:48] LABS: Red Blood Cell (RBC) Count 4.08 mill/uL (4.20-5.40); White Blood Cell (WBC) Count 4.4 thou/uL (4.8-10.8)
[2018-05-09 07:49] LABS: Hemoglobin 12.5 g/dL (12.0-16.0); Mean Corpuscular Volume 96.5 fL (78.0-98.0)
[2018-05-09 07:50] LABS: Mean Corpuscular Hemoglobin 30.6 pg (27.0-31.0)
[2018-05-09 07:52] LABS: Mean Corpuscular HGB CONC 31.7 g/dL (32.0-36.0); Platelet Count 103 thou/uL (130-400); RBC Distribution Width 12.8 % (11.5-14.5)
--- NOTE | 2018-05-09 08:14 | PDOC.FM ---
- Subjective Subjective: Patient reports feeling fatigued. She states that her whole body is sore from just lying in bed. She reports a headache. Denies N/V/abd pain. She states that she ate decent yesterday and actually has started to feel hunger. She states that she kept all her food down yesterday. She reports a large BM yesterday. - Objective MAR Reviewed: Yes Vital Signs & Weight: Vital Signs (12 hours) Temp Pulse Resp BP Pulse Ox 05/09/18 07:15 98.0 F 62 15 94/65 97 05/09/18 04:00 97.8 F 56 L 16 89/50 L 97 Weight Admit Weight 36.514 kg Weight 36.242 kg I&O: 05/08/18 05/09/18 05/10/18 06:59 06:59 06:59 Intake Total 2290 1365 Output Total 400 Balance 1890 1365 Result Diagrams: 05/09/18 05:22 05/09/18 05:22 <Nicole Mercado - Last Filed: 05/09/18 08:12> - Objective Vital Signs & Weight: Vital Signs (12 hours) Temp Pulse Resp BP Pulse Ox 05/09/18 07:15 98.0 F 62 15 94/65 97 05/09/18 04:00 97.8 F 56 L 16 89/50 L 97 Weight Admit Weight 36.514 kg Weight 36.242 kg I&O: 05/08/18 05/09/18 05/10/18 06:59 06:59 06:59 Intake Total 2290 1365 Output Total 400 Balance 1890 1365 Result Diagrams: 05/09/18 05:22 05/09/18 05:22 <Bean Jean Baptiste - Last Filed: 05/09/18 11:38> Phys Exam - Physical Examination Constitutional: NAD cachectic appearing HEENT: moist MMs, sclera anicteric Respiratory: no wheezing, no rales, no rhonchi, clear to auscultation bilateral Cardiovascular: RRR, no significant murmur, no rub Gastrointestinal: soft, non-tender, no distention, positive bowel sounds Musculoskeletal: no edema, pulses present Neurological: non-focal, moves all 4 limbs Psychiatric: normal affect, A&O x 3 <Nicole Mercado - Last Filed: 05/09/18 08:12> Dx/Plan (1) Malnutrition due to starvation Code(s): E46 - UNSPECIFIED PROTEIN-CALORIE MALNUTRITION Status: Acute (2) Anorexia nervosa with bulimia Code(s): F50.02 - ANOREXIA NERVOSA, BINGE EATING/PURGING TYPE Status: Acute (3) HFrEF (heart failure with reduced ejection fraction) Code(s): I50.20 - UNSPECIFIED SYSTOLIC (CONGESTIVE) HEART FAILURE Status: Acute Qualifiers: Heart failure chronicity: unspecified Qualified Code(s): I50.20 - Unspecified systolic (congestive) heart failure (4) Anxiety Code(s): F41.9 - ANXIETY DISORDER, UNSPECIFIED Status: Acute (5) Depression Code(s): F32.9 - MAJOR DEPRESSIVE DISORDER, SINGLE EPISODE, UNSPECIFIED Status : Acute Qualifiers: Depression Type: major depressive disorder Major depression recurrence: unspecified whether recurrent Active/Remission status: remission status unspecified Qualified Code(s): F32.9 - Major depressive disorder, single episode, unspecified (6) Femur fracture, left Code(s): S72.92XA - UNSP FRACTURE OF LEFT FEMUR, INIT ENCNTR FOR CLOSED FRACTURE Status: Acute Qualifiers: Fracture alignment: nondisplaced (7) Osteoporosis Code(s): M81.0 - AGE-RELATED OSTEOPOROSIS W/O CURRENT PATHOLOGICAL FRACTURE Status: Acute Qualifiers: Osteoporosis type: unspecified Presence of current pathological fracture: unspecified Qualified Code(s): M81.0 - Age-related osteoporosis without current pathological fracture (8) Vitamin D deficiency Code(s): E55.9 - VITAMIN D DEFICIENCY, UNSPECIFIED Status: Acute - Plan Plan: Malnutrition 2/2 Anorexia/Bulimia Patient with h/o longstanding anorexia/bulimia, but had acute worsening with decline in BMI due to mom diagnosed with cancer. Pre-albumin low at 14. Vit D low. Mag, Phos, B12, INR WNL - Mirtazapine - trending Phos, has been WNL - whole milk BID - general medical practitioner consulted, appreciate recs - patient is amenable to inpatient treatment. CM on board to help with placement - holding off on TPN for now because she is eating while in the hospital - consulted MR, no recs for inpatient psych tx Non-sustained Ventricular Tachycardia- resolved 4 episodes of 6 or so beats overnight 05/06. Patient has history of smoking Echo shows EF 35-40% - stress test today - Will likely start Beta bre per cards recs pending stress results - Appreciate Cardiology recs - cont to monitor on tele Left femur fracture- stable - fall in January 2018, was supposed to follow with ortho - Dr. Funez consulted, Rec'd twyla, f/u in 6-8 wks Osteoporosis h/o multiple fractures, likely 2/2 chronic malnutrition. Pt with low vit D. - Vit D supplementation Depression No active SI. Passive thoughts. - zoloft 100mg BID - mirtazapine Anxiety - Zoloft GERD - continue protonix Code: Full code ppx: lovenox Dispo: pending inpatient placement. See CM notes, appreciate very hard work put in. No inpatient eating disorder facilities in [place] will accept her insurance. There are some out of state facilities that patient would consider if they accept her insurance. Patient/brother may be able to call into insurance to get some sort of waiver. SNF placement if unable to place at eating disorder facility, states referral unlikely to go through until Wednesday. <Nicole Mercdao - Last Filed: 05/09/18 08:12> Attending Addendum - Attending Addendum Date/Time: 05/09/18 2206 I personally evaluated the patient and discussed the management with Dr. Mercado. I agree with the History, Examination, Assessment and Plan documented above with any addition or exceptions noted below. Bhavik's p.o. Vitals stable. Awaiting Stress test results. Placement pending. <Bean Jean Baptiste - Last Filed: 05/09/18 11:38>
[2018-05-09] MEDS ORDERED: Acetaminophen 500 MG TAB PO SCH (08:15)
--- NOTE | 2018-05-09 08:28 | PDOC.CTH ---
<Edilia Luevano - Last Filed: 05/09/18 08:26> Cardiology Progress Note - Subjective The pt seen and examined. No overnight events. No cardiac complaints. - Objective Vital Signs Temp Pulse Resp BP Pulse Ox 05/09/18 07:15 98.0 F 62 15 94/65 97 05/09/18 04:00 97.8 F 56 L 16 89/50 L 97 Admit Weight 80 lb 8 oz Weight 79 lb 14.4 oz 05/08/18 05/09/18 05/10/18 06:59 06:59 06:59 Intake Total 2290 1365 Output Total 400 Balance 1890 1365 - Physical Examination General/Neuro: alert & oriented x3 Neck: no JVD present Lungs: CTA Heart: RRR Abdomen: soft Extremities: other: (No edema) - Telemetry Telemetry Rhythm: SR 65 - Labs Result Diagrams: 05/09/18 05:22 05/09/18 05:22 Troponin/CKMB CK-MB (CK-2) 2.1 ng/mL (0-6.6) 05/07/18 07:42 Troponin I Less than 0.010 ng/mL (< 0.028) 05/07/18 07:42 - Assessment/Plan 1. S/p several episodes of NSVTs with decreased EF - she is getting 2nd half stress test today. Asymptomatic 2. Anorexia nervosa with bulimia - 3. Anxiety and depression - 4. Hx of Lt fem fx in 12/2017 - consulted by dior. 5. Current smoker - smoking cessation education given to the pt. MAR reviewed Review of Systems - Review of Systems Constitutional: reports: no symptoms reported EENTM: reports: no symptoms reported Respiratory: reports: no symptoms reported Cardiac (ROS): reports: no symptoms reported ABD/GI: reports: no symptoms reported : reports: no symptoms reported Musculoskeletal: reports: no symptoms reported <Cherise Lu - Last Filed: 05/09/18 16:53> Cardiology Progress Note - Objective Vital Signs Temp Pulse Resp BP Pulse Ox 05/09/18 15:42 93/55 L 05/09/18 15:25 97.3 F L 67 15 80/48 L 97 05/09/18 11:15 97.6 F 79 14 88/67 L 98 05/09/18 07:15 98.0 F 62 15 94/65 97 Admit Weight 80 lb 8 oz Weight 79 lb 14.4 oz 05/08/18 05/09/18 05/10/18 06:59 06:59 06:59 Intake Total 2290 1365 Output Total 400 Balance 1890 1365 - Labs Result Diagrams: 05/09/18 05:22 05/09/18 05:22 Troponin/CKMB CK-MB (CK-2) 2.1 ng/mL (0-6.6) 05/07/18 07:42 Troponin I Less than 0.010 ng/mL (< 0.028) 05/07/18 07:42 - Assessment/Plan pt. seen and eval. No significant change. I agree with the A/P by the JIGGER ARTISAN. The stress test is negative for ischemia.The EF was normal on the stress test. Cardiac status is stable. No further work up is nec. With a negative stress test and normal EF, the risk oif an acute cardiac event due to the PVC's or short episodes of NS Vtach is less than 1%. I will sign off. Thank you.
--- NOTE | 2018-05-09 12:08 | NM ---
RADIONUCLIDE STRESS REST MYOCARDIAL PERFUSION SCAN WITH CT ATTENUATION CORRECTION AND SPECT IMAGING LEFT VENTRICULAR WALL MOTION EVALUATION AND EJECTION FRACTION: History: Chest pain. FINDINGS: Lexiscan protocol. There is heterogeneous uptake of radiotracer throughout the left ventricular myoca rdium on the stress and rest images. No focal perfusion defect or reversibility are apparent. QGS paulino lysis of gated SPECT images shows no focal wall motion abnormalities. Ejection fraction is calculated at 73%. IMPRESSION: Normal myocardial perfusion scan. Normal LVEF. POS: H
[2018-05-09] MEDS ORDERED: Regadenoson 0.4 MG/5 ML SYRINGE ONE (13:07)
--- NOTE | 2018-05-09 13:50 | DIS-2 ---
TRANSFER OF CARE NOTE DATE OF SERVICE: 05/08/2018 ADMITTING ATTENDING: Sarah Guzmán M.D. DISCHARGE ATTENDING: To be determined. RESIDENT: Rishabh De Leon MD PROCEDURES: Stress test, to be determined; echocardiogram shows EF 35-40%. PRIMARY DIAGNOSIS: Anorexia versus bulimia eating disorder. SECONDARY DIAGNOSES: 1. Malnutrition, nonsustained ventricular tachycardia, osteoporosis, left femur fracture, major depressive disorder. 2. Anxiety. 3. Gastroesophageal reflux disease. DISCHARGE MEDICATIONS: To be determined. DISCONTINUED MEDICATIONS: To be determined. This is a 43-year-old female who is a direct admit from clinic with a BMI of 11 , previous BMI in January was 17. Patient has continued to lose weight. She has struggled with eating disorder for many years. She states that she used to make herself vomit using a straw. As of late as she has not been eating. She states that her mother's brain cancer diagnosis is a source of great stress in her life. This has been a driving factor. She gains good social support from her brother who helps take care of her. She does live with her mother. Patient's lab work on admission showed a low prealbumin and low vitamin D. Phosphorus within normal limits. Phosphorus has been trended and stayed normal throughout the admission. The patient has been eating well per nursing staff. She did have one episode of vomiting on 05/07/2018. The patient became defensive when asked about this event. She denies gagging herself or reducing the vomiting on her own, but she also states, "I do not remember the event and what caused it and I do not know how it happened." The patient was found to have 4 episodes of nonsustained ventricular tachycardia overnight on 05/06/2018, these lasted for about 5 seconds. There were about 6 beats long each. These have not reoccurred since that time. Cardiology was consulted for evaluation of these episodes, as well as an EF of 30-40%. Cardiology recommended a stress test based on the patient's long smoking history to rule out ischemia as a source of the decreased ejection fraction. Case Management has been working very hard on placement for this patient. The patient has been denied to all of eating disorder facilities in [place]. They will not take her insurance. Case Management states that patient and her brother could call her insurance and ask for an exception as there are no facilities in the state that will accept her insurance. PT/OT evaluate the patient and did not recommend rehab stay for her. Therefore, we are now moving towards a long-term facility placement for this patient. Any sort of monitored living situation will be better than where she was coming from. The patient was found to have chronic distal left femur fracture, this was after a fall in January 2018. She was supposed to follow up with Orthopedics outpatient, but never did. Orthopedic states that she should walk with a walker For about 6-8 weeks and then follow up in clinic. DISPOSITION: Will need placement in some sort of facility. Hopefully, best case scenario would be that her brother can figure out insurance, so that they could go to a facility specializing in eating disorders. It sounds like the next best thing is going to be to get her to a long-term facility. Case Management does not think this will happen before Wednesday. She has been eating well in the hospital, so this seems like it could be a reasonable option. Follow up on stress test, Cardiology recommendations. ARNOLD
[2018-05-09 17:12] LABS: Folate,Hemolysate 523.2 ng/mL (Not Estab.); Hematocrit 36.2 % (34.0-46.6); RBC Folate Test Component 1445 ng/mL (>498)
[2018-05-09] MEDS: Mirtazapine 15 MG TAB PO SCH (20:28)
[2018-05-10] MEDS: Nicotine 14 MG PATCH TD SCH (05:57)
[2018-05-10 06:28] LABS: Hemoglobin 12.5 g/dL (12.0-16.0); Mean Corpuscular HGB CONC 31.6 g/dL (32.0-36.0); Mean Corpuscular Hemoglobin 30.3 pg (27.0-31.0); Mean Platelet Volume 11.7 fL (7.4-10.4); Platelet Count 105 thou/uL (130-400); RBC Distribution Width 12.7 % (11.5-14.5); Red Blood Cell (RBC) Count 4.14 mill/uL (4.20-5.40); White Blood Cell (WBC) Count 4.3 thou/uL (4.8-10.8)
[2018-05-10 06:47] LABS: BUN (Urea Nitrogen) 8 mg/dL (7.0-18.7); Calc. Creatinine Clearance 63 mL/min (70-130); Calcium 9.1 mg/dL (7.8-10.44); Carbon Dioxide 27 mmol/L (22-29); Chloride 109 mmol/L (98-107); Estimated GFR-MDRD Greater than 90; Glucose 90 mg/dL (70-105); Phosphorus 3.4 mg/dL (2.3-4.7); Potassium 3.9 mmol/L (3.5-5.1); Sodium 145 mmol/L (136-145)
[2018-05-10 06:53] LABS: Anion Gap 13 mmol/L (10-20)
[2018-05-10] MEDS: Cholecalciferol (Vitamin D3) 400 UNITS TAB PO SCH (08:36)
[2018-05-10] MEDS: Multivit, Chewable SF 1 TAB PO SCH (08:36)
[2018-05-10] MEDS: Enoxaparin Sodium 40 MG/0.4 ML SYRINGE SC SCH (08:36)
[2018-05-10] MEDS: Gabapentin 300 MG CAP PO SCH ×3 (08:36→20:39)
--- NOTE | 2018-05-10 09:05 | PDOC.FM ---
- Subjective Subjective: Patient reports that she has been trying to eat her meals, but nothing is sounding good right now. She denies any episodes of nausea or vomiting. She reports having good BM's. She reports some left hip pain, but states that she is able to walk, she just feels tired/fatigued. - Objective MAR Reviewed: Yes Vital Signs & Weight: Vital Signs (12 hours) Temp Pulse Resp BP Pulse Ox 05/10/18 07:25 98.0 F 75 14 82/51 L 96 05/10/18 07:15 97 05/10/18 03:49 97.9 F 62 16 85/54 L 96 Weight Admit Weight 36.514 kg Weight 36.242 kg I&O: 05/09/18 05/10/18 05/11/18 06:59 06:59 06:59 Intake Total 1365 1200 Balance 1365 1200 Result Diagrams: 05/10/18 05:44 05/10/18 05:44 <Nicole Mercado - Last Filed: 05/10/18 09:03> - Objective Vital Signs & Weight: Vital Signs (12 hours) Temp Pulse Resp BP Pulse Ox 05/10/18 10:35 98 05/10/18 07:25 98.0 F 75 14 82/51 L 96 05/10/18 07:15 97 05/10/18 03:49 97.9 F 62 16 85/54 L 96 Weight Admit Weight 36.514 kg Weight 36.242 kg I&O: 05/09/18 05/10/18 05/11/18 06:59 06:59 06:59 Intake Total 1365 1200 Balance 1365 1200 Result Diagrams: 05/10/18 05:44 05/10/18 05:44 <Bean Jean Baptiste - Last Filed: 05/10/18 11:46> Phys Exam - Physical Examination Constitutional: NAD cachectic appearing HEENT: moist MMs, sclera anicteric Respiratory: no wheezing, no rales, no rhonchi, clear to auscultation bilateral Cardiovascular: RRR, no significant murmur, no rub Gastrointestinal: soft, non-tender, no distention, positive bowel sounds Musculoskeletal: no edema, pulses present Psychiatric: normal affect, A&O x 3 Skin: normal turgor, cap refill <2 seconds <Nicole Mercado - Last Filed: 05/10/18 09:03> Dx/Plan (1) Malnutrition due to starvation Code(s): E46 - UNSPECIFIED PROTEIN-CALORIE MALNUTRITION Status: Acute (2) Anorexia nervosa with bulimia Code(s): F50.02 - ANOREXIA NERVOSA, BINGE EATING/PURGING TYPE Status: Acute (3) HFrEF (heart failure with reduced ejection fraction) Code(s): I50.20 - UNSPECIFIED SYSTOLIC (CONGESTIVE) HEART FAILURE Status: Acute Qualifiers: Heart failure chronicity: unspecified Qualified Code(s): I50.20 - Unspecified systolic (congestive) heart failure (4) Anxiety Code(s): F41.9 - ANXIETY DISORDER, UNSPECIFIED Status: Acute (5) Depression Code(s): F32.9 - MAJOR DEPRESSIVE DISORDER, SINGLE EPISODE, UNSPECIFIED Status : Acute Qualifiers: Depression Type: major depressive disorder Major depression recurrence: unspecified whether recurrent Active/Remission status: remission status unspecified Qualified Code(s): F32.9 - Major depressive disorder, single episode, unspecified (6) Femur fracture, left Code(s): S72.92XA - UNSP FRACTURE OF LEFT FEMUR, INIT ENCNTR FOR CLOSED FRACTURE Status: Acute Qualifiers: Fracture alignment: nondisplaced (7) Osteoporosis Code(s): M81.0 - AGE-RELATED OSTEOPOROSIS W/O CURRENT PATHOLOGICAL FRACTURE Status: Acute Qualifiers: Osteoporosis type: unspecified Presence of current pathological fracture: unspecified Qualified Code(s): M81.0 - Age-related osteoporosis without current pathological fracture (8) Vitamin D deficiency Code(s): E55.9 - VITAMIN D DEFICIENCY, UNSPECIFIED Status: Acute - Plan Plan: Malnutrition 2/2 Anorexia/Bulimia Patient with h/o longstanding anorexia/bulimia, but had acute worsening with decline in BMI due to mom diagnosed with cancer. Pre-albumin low at 14. Vit D low. Mag, Phos, B12, INR WNL - Mirtazapine - trending Phos, has been WNL - whole milk BID - lump inspector consulted, appreciate recs - patient is amenable to inpatient treatment. CM on board to help with placement - holding off on TPN for now because she is eating while in the hospital - consulted [facility], no recs for inpatient psych tx Non-sustained Ventricular Tachycardia- resolved 4 episodes of 6 or so beats overnight 10/19. Patient has history of smoking Echo shows EF 35-40%. Stress test NL with normal EF - Appreciate Cardiology recs - will transfer to medical Left femur fracture- stable fall in January 2018, was supposed to follow with ortho - Dr. Funez consulted, Rec'd twyla, f/u in 6-8 wks Osteoporosis h/o multiple fractures, likely 2/2 chronic malnutrition. Pt with low vit D. - Vit D supplementation Depression No active SI. Passive thoughts. - zoloft 100mg BID - mirtazapine Anxiety - Zoloft GERD - continue protonix Code: Full code ppx: lovenox Dispo: pending inpatient placement. No inpatient eating disorder facilities in [place] will accept her insurance. There are some out of state facilities that patient would consider if they accept her insurance. Patient/brother may be able to call into insurance to get some sort of waiver. Unable to get placement at SNF due to pt being cleared by PT. PCP is working on potential long-term detention placement and outpt referral to psychiatry. <Nicole Mercado - Last Filed: 05/10/18 09:03> Attending Addendum - Attending Addendum Date/Time: 05/10/18 6254 I personally evaluated the patient and discussed the management with Dr. Mercado. I agree with the History, Examination, Assessment and Plan documented above with any addition or exceptions noted below. Stress test negative. Claims eating though weight down. Awaiting placement. <Bean Jaen Baptiste - Last Filed: 05/10/18 11:46>
[2018-05-10] MEDS: Mirtazapine 15 MG TAB PO SCH (20:39)
[2018-05-11 05:31] LABS: Hemoglobin 12.5 g/dL (12.0-16.0); Mean Corpuscular Hemoglobin 30.5 pg (27.0-31.0); Mean Corpuscular Volume 95.3 fL (78.0-98.0); Mean Platelet Volume 11.6 fL (7.4-10.4); Platelet Count 96 thou/uL (130-400); RBC Distribution Width 12.6 % (11.5-14.5); Red Blood Cell (RBC) Count 4.08 mill/uL (4.20-5.40); White Blood Cell (WBC) Count 4.5 thou/uL (4.8-10.8)
[2018-05-11 05:57] LABS: Anion Gap 12 mmol/L (10-20); BUN (Urea Nitrogen) 7 mg/dL (7.0-18.7); Calc. Creatinine Clearance 60 mL/min (70-130); Carbon Dioxide 26 mmol/L (22-29); Chloride 106 mmol/L (98-107); Estimated GFR-MDRD Greater than 90; Glucose 112 mg/dL (70-105); Phosphorus 3.2 mg/dL (2.3-4.7); Potassium 3.6 mmol/L (3.5-5.1); Sodium 140 mmol/L (136-145)
[2018-05-11] MEDS: Nicotine 14 MG PATCH TD SCH (06:04)
[2018-05-11] MEDS: Cholecalciferol (Vitamin D3) 400 UNITS TAB PO SCH (09:05)
[2018-05-11] MEDS: Multivit, Chewable SF 1 TAB PO SCH (09:05)
[2018-05-11] MEDS: Gabapentin 300 MG CAP PO SCH ×3 (09:06→20:40)
[2018-05-11] MEDS: Enoxaparin Sodium 40 MG/0.4 ML SYRINGE SC SCH (09:09)
--- NOTE | 2018-05-11 09:26 | PDOC.FM ---
- Subjective Subjective: Patient denies any complaints today. She reports that she has been ambulating without pain or difficulty. She reports feeling some hunger and trying to eat her meals. She denies any N/V. - Objective MAR Reviewed: Yes Vital Signs & Weight: Vital Signs (12 hours) Temp Pulse Resp BP BP Pulse Ox 05/11/18 08:30 94/58 L 05/11/18 07:31 98.5 F 71 16 73/49 L 95 05/11/18 04:30 97.3 F L 63 16 93/65 97 05/11/18 00:00 98.0 F 68 16 97/64 96 Weight Admit Weight 36.514 kg Weight 37.45 kg I&O: 05/10/18 05/11/18 05/12/18 06:59 06:59 06:59 Intake Total 1200 1500 Balance 1200 1500 Result Diagrams: 05/11/18 04:22 05/11/18 04:22 <Nicole Mercado - Last Filed: 05/11/18 09:25> - Objective Vital Signs & Weight: Vital Signs (12 hours) Temp Pulse Resp BP BP Pulse Ox 05/11/18 08:30 94/58 L 05/11/18 07:31 98.5 F 71 16 73/49 L 95 05/11/18 04:30 97.3 F L 63 16 93/65 97 05/11/18 00:00 98.0 F 68 16 97/64 96 Weight Admit Weight 36.514 kg Weight 37.45 kg I&O: 05/10/18 05/11/18 05/12/18 06:59 06:59 06:59 Intake Total 1200 1500 Balance 1200 1500 Result Diagrams: 05/11/18 04:22 05/11/18 04:22 <Bean Jean Baptiste - Last Filed: 05/11/18 10:11> Phys Exam - Physical Examination Constitutional: NAD cachectic appearing HEENT: moist MMs, sclera anicteric Respiratory: no wheezing, no rales, no rhonchi, clear to auscultation bilateral Cardiovascular: RRR, no significant murmur, no rub Gastrointestinal: soft, non-tender, no distention, positive bowel sounds Musculoskeletal: no edema, pulses present Psychiatric: normal affect, A&O x 3 <Nicole Mercado - Last Filed: 05/11/18 09:25> Dx/Plan (1) Malnutrition due to starvation Code(s): E46 - UNSPECIFIED PROTEIN-CALORIE MALNUTRITION Status: Acute (2) Anorexia nervosa with bulimia Code(s): F50.02 - ANOREXIA NERVOSA, BINGE EATING/PURGING TYPE Status: Acute (3) HFrEF (heart failure with reduced ejection fraction) Code(s): I50.20 - UNSPECIFIED SYSTOLIC (CONGESTIVE) HEART FAILURE Status: Acute Qualifiers: Heart failure chronicity: unspecified Qualified Code(s): I50.20 - Unspecified systolic (congestive) heart failure (4) Anxiety Code(s): F41.9 - ANXIETY DISORDER, UNSPECIFIED Status: Acute (5) Depression Code(s): F32.9 - MAJOR DEPRESSIVE DISORDER, SINGLE EPISODE, UNSPECIFIED Status : Acute Qualifiers: Depression Type: major depressive disorder Major depression recurrence: unspecified whether recurrent Active/Remission status: remission status unspecified Qualified Code(s): F32.9 - Major depressive disorder, single episode, unspecified (6) Femur fracture, left Code(s): S72.92XA - UNSP FRACTURE OF LEFT FEMUR, INIT ENCNTR FOR CLOSED FRACTURE Status: Acute Qualifiers: Fracture alignment: nondisplaced (7) Osteoporosis Code(s): M81.0 - AGE-RELATED OSTEOPOROSIS W/O CURRENT PATHOLOGICAL FRACTURE Status: Acute Qualifiers: Osteoporosis type: unspecified Presence of current pathological fracture: unspecified Qualified Code(s): M81.0 - Age-related osteoporosis without current pathological fracture (8) Vitamin D deficiency Code(s): E55.9 - VITAMIN D DEFICIENCY, UNSPECIFIED Status: Acute - Plan Plan: Malnutrition 2/2 Anorexia/Bulimia Patient with h/o longstanding anorexia/bulimia, but had acute worsening with decline in BMI due to mom diagnosed with cancer. Pre-albumin low at 14. Vit D low. Mag, Phos, B12, INR WNL - Mirtazapine - trending Phos, has been WNL - whole milk BID - career development specialist consulted, appreciate recs - patient is amenable to inpatient treatment. CM on board to help with placement - holding off on TPN for now because she is eating while in the hospital - consulted [facility], no recs for inpatient psych tx Non-sustained Ventricular Tachycardia- resolved 4 episodes of 6 or so beats overnight 05/06. Patient has history of smoking Echo shows EF 35-40%. Stress test NL with normal EF - Appreciate Cardiology recs - will transfer to medical Left femur fracture- stable fall in January 2018, was supposed to follow with ortho - Dr. Funez consulted, Rec'd twyla, f/u in 6-8 wks Osteoporosis h/o multiple fractures, likely 2/2 chronic malnutrition. Pt with low vit D. - Vit D supplementation Depression No active SI. Passive thoughts. - zoloft 100mg BID - mirtazapine Anxiety - Zoloft GERD - continue protonix Code: Full code ppx: lovenox Dispo: pending inpatient placement. No inpatient eating disorder facilities in [place] will accept her insurance. There are some out of state facilities that patient would consider if they accept her insurance. Patient/brother may be able to call into insurance to get some sort of waiver. Unable to get placement at SNF due to pt being cleared by PT. PCP is working on potential long-term retirement placement and outpt referral to psychiatry. <Nicole Mercado - Last Filed: 05/11/18 09:25> Attending Addendum - Attending Addendum Date/Time: 05/11/18 1005 I personally evaluated the patient and discussed the management with Dr. Mercado I agree with the History, Examination, Assessment and Plan documented above with any addition or exceptions noted below. 43 y/o F with malnutrition and anorexia/bulimia. She is eating about 50% of meals and denies any purging activity. She has gained about 1 kg. Her brother and PCP are working with her insurance on placement. Agreed to at least an initial target wt of 110 lb's as reasonable goal. <Bean Jean Baptiste - Last Filed: 05/11/18 10:11>
[2018-05-11] MEDS: Acetaminophen 325 MG TAB PO PRN (20:40)
[2018-05-11] MEDS: Mirtazapine 15 MG TAB PO SCH (20:40)
[2018-05-12] MEDS: Nicotine 14 MG PATCH TD SCH (05:41)
--- NOTE | 2018-05-12 06:04 | EKG ---
Test Reason : Blood Pressure : / mmHG Vent. Rate : 060 BPM Atrial Rate : 060 BPM P-R Int : 166 ms QRS Dur : 096 ms QT Int : 376 ms P-R-T Axes : 083 079 083 degrees QTc Int : 376 ms Normal sinus rhythm Low voltage QRS \ Poor R wave progression Borderline ECG When compared with ECG of 19-JAN-2006 17:44, QT has shortened Confirmed by MARGARET FOY ([id number]) on 05/12/2018 6:04:29 AM Referred By: Confirmed By:MARGARET FOY
[2018-05-12] MEDS: Gabapentin 300 MG CAP PO SCH ×3 (08:56→20:14)
[2018-05-12] MEDS: Multivit, Chewable SF 1 TAB PO SCH (08:56)
--- NOTE | 2018-05-12 09:22 | PDOC.FM ---
- Subjective Subjective: Patient reports eating about 50% of her meals and several fruit cups and pudding. She denies any purging activity. She reports walking around yesterday without much pain. She does report a headache that improved with tylenol. - Objective MAR Reviewed: Yes Vital Signs & Weight: Vital Signs (12 hours) Temp Pulse Resp BP BP BP Pulse Ox 05/12/18 07:44 98 F 67 18 88/55 L 95 05/12/18 04:00 97.9 F 73 16 79/54 L 94 L 05/12/18 00:00 97.8 F 64 16 98/61 94 L Weight Admit Weight 36.514 kg Weight 36.605 kg I&O: 05/11/18 05/12/18 05/13/18 06:59 06:59 06:59 Intake Total 1499 2019 Balance 1500 2019 Result Diagrams: 05/11/18 04:22 05/11/18 04:22 <Nicole Mercado - Last Filed: 05/12/18 09:18> - Objective Vital Signs & Weight: Vital Signs (12 hours) Temp Pulse Resp BP BP BP Pulse Ox 05/12/18 07:44 98 F 67 18 88/55 L 95 05/12/18 04:00 97.9 F 73 16 79/54 L 94 L 05/12/18 00:00 97.8 F 64 16 98/61 94 L Weight Admit Weight 36.514 kg Weight 36.605 kg I&O: 05/11/18 05/12/18 05/13/18 06:59 06:59 06:59 Intake Total 1499 2019 Balance 1500 2019 Result Diagrams: 05/11/18 04:22 05/11/18 04:22 <Bean Jean Baptiste - Last Filed: 05/12/18 09:57> Phys Exam - Physical Examination Constitutional: NAD cachectic appearing HEENT: moist MMs, sclera anicteric sunken cheeks Respiratory: no wheezing, no rales, no rhonchi, clear to auscultation bilateral Cardiovascular: RRR, no significant murmur, no rub Gastrointestinal: soft, non-tender, no distention, positive bowel sounds Musculoskeletal: no edema, pulses present Psychiatric: normal affect, A&O x 3 <Nicole Mercado - Last Filed: 05/12/18 09:18> Dx/Plan (1) Malnutrition due to starvation Code(s): E46 - UNSPECIFIED PROTEIN-CALORIE MALNUTRITION Status: Acute (2) Anorexia nervosa with bulimia Code(s): F50.02 - ANOREXIA NERVOSA, BINGE EATING/PURGING TYPE Status: Acute (3) HFrEF (heart failure with reduced ejection fraction) Code(s): I50.20 - UNSPECIFIED SYSTOLIC (CONGESTIVE) HEART FAILURE Status: Acute Qualifiers: Heart failure chronicity: unspecified Qualified Code(s): I50.20 - Unspecified systolic (congestive) heart failure (4) Anxiety Code(s): F41.9 - ANXIETY DISORDER, UNSPECIFIED Status: Acute (5) Depression Code(s): F32.9 - MAJOR DEPRESSIVE DISORDER, SINGLE EPISODE, UNSPECIFIED Status : Acute Qualifiers: Depression Type: major depressive disorder Major depression recurrence: unspecified whether recurrent Active/Remission status: remission status unspecified Qualified Code(s): F32.9 - Major depressive disorder, single episode, unspecified (6) Femur fracture, left Code(s): S72.92XA - UNSP FRACTURE OF LEFT FEMUR, INIT ENCNTR FOR CLOSED FRACTURE Status: Acute Qualifiers: Fracture alignment: nondisplaced (7) Osteoporosis Code(s): M81.0 - AGE-RELATED OSTEOPOROSIS W/O CURRENT PATHOLOGICAL FRACTURE Status: Acute Qualifiers: Osteoporosis type: unspecified Presence of current pathological fracture: unspecified Qualified Code(s): M81.0 - Age-related osteoporosis without current pathological fracture (8) Vitamin D deficiency Code(s): E55.9 - VITAMIN D DEFICIENCY, UNSPECIFIED Status: Acute - Plan Plan: Malnutrition 2/2 Anorexia/Bulimia Patient with h/o longstanding anorexia/bulimia, but had acute worsening with decline in BMI due to mom diagnosed with cancer. Pre-albumin low at 14. Vit D low. Mag, Phos, B12, INR WNL - Mirtazapine - trending Phos, has been WNL - whole milk BID - validation specialist consulted, appreciate recs - patient is amenable to inpatient treatment. CM on board to help with placement - holding off on TPN for now because she is eating while in the hospital - consulted [facility], no recs for inpatient psych tx Non-sustained Ventricular Tachycardia- resolved 4 episodes of 6 or so beats overnight 05/06. Patient has history of smoking Echo shows EF 35-40%. Stress test NL with normal EF - Appreciate Cardiology recs Left femur fracture- stable fall in January 2018, was supposed to follow with ortho - Dr. Funez consulted, Rec'd walker, f/u in 6-8 wks Osteoporosis h/o multiple fractures, likely 2/2 chronic malnutrition. Pt with low vit D. - Vit D supplementation Depression No active SI. Passive thoughts. - zoloft 100mg BID - mirtazapine Anxiety - Zoloft GERD - continue protonix Code: Full code ppx: lovenox Dispo: pending inpatient placement. No inpatient eating disorder facilities in [place] will accept her insurance. There are some out of state facilities that patient would consider if they accept her insurance. Unable to get placement at SNF due to pt being cleared by PT. PCP is working on potential long-term [facility] placement and outpt referral to psychiatry. <Nicole Mercado - Last Filed: 05/12/18 09:18> Attending Addendum - Attending Addendum Date/Time: 05/12/18955 I personally evaluated the patient and discussed the management with Dr. Mercado. I agree with the History, Examination, Assessment and Plan documented above with any addition or exceptions noted below. No c/o's Wt hovering around 37 kg. Hasn't eaten breakfast yet. Awaiting placement. <Bean Jean Baptiste - Last Filed: 05/12/18 09:57>
[2018-05-12] MEDS: Cholecalciferol (Vitamin D3) 400 UNITS TAB PO SCH (09:25)
[2018-05-12] MEDS: Enoxaparin Sodium 40 MG/0.4 ML SYRINGE SC SCH (09:28)
[2018-05-12] MEDS: Mirtazapine 15 MG TAB PO SCH (20:14)
[2018-05-13] MEDS: Nicotine 14 MG PATCH TD SCH (05:52)
--- NOTE | 2018-05-13 08:47 | PDOC.FM ---
- Subjective Subjective: Patient denies any purging activity, but has still not gained any weight. She reports eating her meals. Denies nausea, abdominal pain, F/C. - Objective MAR Reviewed: Yes Vital Signs & Weight: Vital Signs (12 hours) Temp Pulse Resp BP Pulse Ox 05/13/18 08:00 98.2 F 69 16 92/52 L 95 Weight Admit Weight 36.514 kg Weight 36.42 kg I&O: 05/12/18 05/13/18 05/14/18 06:59 06:59 06:59 Intake Total 2019 2429 Balance 2019 2429 Result Diagrams: 05/11/18 04:22 05/11/18 04:22 <Nicole Mercado - Last Filed: 05/13/18 08:42> - Objective Vital Signs & Weight: Weight Admit Weight 36.514 kg Weight 38.102 kg Result Diagrams: 06/08/18 04:20 06/08/18 04:20 <Bean Jean Baptiste - Last Filed: 06/14/18 06:58> Phys Exam - Physical Examination Constitutional: NAD cachectic appearing HEENT: moist MMs, sclera anicteric sunken cheeks Respiratory: no wheezing, no rales, no rhonchi, clear to auscultation bilateral Cardiovascular: RRR, no significant murmur, no rub Gastrointestinal: soft, non-tender, no distention, positive bowel sounds Musculoskeletal: no edema, pulses present Psychiatric: normal affect, A&O x 3 <Nicole Mercado - Last Filed: 05/13/18 08:42> Dx/Plan (1) Malnutrition due to starvation Code(s): E46 - UNSPECIFIED PROTEIN-CALORIE MALNUTRITION Status: Acute (2) Anorexia nervosa with bulimia Code(s): F50.02 - ANOREXIA NERVOSA, BINGE EATING/PURGING TYPE Status: Acute (3) Anxiety Code(s): F41.9 - ANXIETY DISORDER, UNSPECIFIED Status: Acute (4) Depression Code(s): F32.9 - MAJOR DEPRESSIVE DISORDER, SINGLE EPISODE, UNSPECIFIED Status : Acute Qualifiers: Depression Type: major depressive disorder Major depression recurrence: unspecified whether recurrent Active/Remission status: remission status unspecified Qualified Code(s): F32.9 - Major depressive disorder, single episode, unspecified (5) Femur fracture, left Code(s): S72.92XA - UNSP FRACTURE OF LEFT FEMUR, INIT ENCNTR FOR CLOSED FRACTURE Status: Acute Qualifiers: Fracture alignment: nondisplaced (6) Osteoporosis Code(s): M81.0 - AGE-RELATED OSTEOPOROSIS W/O CURRENT PATHOLOGICAL FRACTURE Status: Acute Qualifiers: Osteoporosis type: unspecified Presence of current pathological fracture: unspecified Qualified Code(s): M81.0 - Age-related osteoporosis without current pathological fracture (7) Vitamin D deficiency Code(s): E55.9 - VITAMIN D DEFICIENCY, UNSPECIFIED Status: Acute (8) HFrEF (heart failure with reduced ejection fraction) Code(s): I50.20 - UNSPECIFIED SYSTOLIC (CONGESTIVE) HEART FAILURE Status: Acute Qualifiers: Heart failure chronicity: unspecified Qualified Code(s): I50.20 - Unspecified systolic (congestive) heart failure - Plan Plan: Malnutrition 2/2 Anorexia/Bulimia Patient with h/o longstanding anorexia/bulimia, but had acute worsening with decline in BMI due to mom diagnosed with terminal cancer. Pre-albumin low at 14. Vit D low. Mag, Phos, B12, INR WNL. Pt has still not gained any weight since admission, suspect she is still purging. Will order a sitter to monitor pt and document purging activity. - Mirtazapine - trending Phos, has been WNL - whole milk BID - construction laborer consulted, appreciate recs - patient is amenable to inpatient treatment. CM on board to help with placement - holding off on TPN for now - consulted [facility], no recs for inpatient psych tx Non-sustained Ventricular Tachycardia- resolved 4 episodes of 6 or so beats overnight 05/06. Patient has history of smoking Echo shows EF 35-40%. Stress test NL with normal EF - Appreciate Cardiology recs Left femur fracture- stable fall in January 2018, was supposed to follow with ortho - Dr. Funez consulted, Rec'd twyla, f/u in 6-8 wks Osteoporosis h/o multiple fractures, likely 2/2 chronic malnutrition. Pt with low vit D. - Vit D supplementation Depression No active SI. Passive thoughts. - zoloft 100mg BID - mirtazapine Anxiety - Zoloft GERD - continue protonix Code: Full code ppx: lovenox Dispo: pending inpatient placement. No inpatient eating disorder facilities in [place] will accept her insurance. There are some out of state facilities that patient would consider if they accept her insurance. Unable to get placement at SNF due to pt being cleared by PT. PCP is working on potential long-term detention placement and outpt referral to psychiatry. <Nicole Mercado - Last Filed: 05/13/18 08:42> Attending Addendum - Attending Addendum Date/Time: 06/14/18 0656 I personally evaluated the patient and discussed the management with Dr. Mercado on 05/13/18 I agree with the History, Examination, Assessment and Plan documented above with any addition or exceptions noted below. Continues to remain weight neutral/negative. Suspect pt. is not completely honest in her reported intake. May need to consider parenteral or enteral nutrition if continues. Investigating options for [facility]dc Eating Disorders care. <Bean Jean Baptiste - Last Filed: 06/14/18 06:58>
[2018-05-13] MEDS: Multivit, Chewable SF 1 TAB PO SCH (08:56)
[2018-05-13] MEDS: Gabapentin 300 MG CAP PO SCH ×3 (08:56→21:31)
[2018-05-13] MEDS: Enoxaparin Sodium 40 MG/0.4 ML SYRINGE SC SCH (08:56)
[2018-05-13] MEDS: Cholecalciferol (Vitamin D3) 400 UNITS TAB PO SCH (08:56)
[2018-05-13 11:39] LABS: Hemoglobin 13.8 g/dL (12.0-16.0); Mean Corpuscular HGB CONC 32.5 g/dL (32.0-36.0); Mean Corpuscular Hemoglobin 30.8 pg (27.0-31.0); Mean Corpuscular Volume 94.9 fL (78.0-98.0); Platelet Count 114 thou/uL (130-400); RBC Distribution Width 12.8 % (11.5-14.5); Red Blood Cell (RBC) Count 4.47 mill/uL (4.20-5.40)
[2018-05-13 11:53] LABS: Anion Gap 13 mmol/L (10-20); BUN (Urea Nitrogen) 10 mg/dL (7.0-18.7); Calc. Creatinine Clearance 59 mL/min (70-130); Carbon Dioxide 28 mmol/L (22-29); Chloride 107 mmol/L (98-107); Estimated GFR-MDRD 90; Glucose 74 mg/dL (70-105); Phosphorus 2.8 mg/dL (2.3-4.7); Sodium 144 mmol/L (136-145)
[2018-05-13] MEDS: Mirtazapine 15 MG TAB PO SCH (21:31)
[2018-05-14] MEDS: Nicotine 14 MG PATCH TD SCH (06:27)
--- NOTE | 2018-05-14 07:04 | PDOC.FM ---
- Subjective Subjective: Patient tired this morning and did not want to talk to me. She refused to answer any questions and just rolled over in bed. - Objective MAR Reviewed: Yes Vital Signs & Weight: Vital Signs (12 hours) Temp Pulse Resp BP Pulse Ox 05/13/18 21:02 97 05/13/18 20:06 98.6 F 70 18 102/64 97 Weight Admit Weight 36.514 kg Weight 37.025 kg I&O: 05/13/18 05/14/18 05/15/18 06:59 06:59 06:59 Intake Total 2430 2790 Balance 2430 2790 Result Diagrams: 05/13/18 11:07 05/13/18 11:07 <Nicole Mercado - Last Filed: 05/14/18 07:01> - Objective Vital Signs & Weight: Vital Signs (12 hours) Temp Pulse Resp BP BP BP Pulse Ox 05/14/18 07:46 97.8 F 57 L 16 86/41 L 96/64 92/63 95 Weight Admit Weight 36.514 kg Weight 37.025 kg I&O: 05/13/18 05/14/18 05/15/18 06:59 06:59 06:59 Intake Total 2430 2790 Balance 2430 2790 Result Diagrams: 05/13/18 11:07 05/13/18 11:07 <Inocencio Perla - Last Filed: 05/14/18 10:09> Phys Exam - Physical Examination Constitutional: NAD cachectic HEENT: moist MMs, sclera anicteric sunken cheeks Respiratory: no wheezing, no rales, no rhonchi, clear to auscultation bilateral Cardiovascular: RRR, no significant murmur, no rub Gastrointestinal: soft, non-tender, no distention, positive bowel sounds Musculoskeletal: no edema, pulses present poor tone Psychiatric: A&O x 3 Deviation from normal: agitated affect <Nicole Mercado - Last Filed: 05/14/18 07:01> Dx/Plan (1) Malnutrition due to starvation Code(s): E46 - UNSPECIFIED PROTEIN-CALORIE MALNUTRITION Status: Acute (2) Anorexia nervosa with bulimia Code(s): F50.02 - ANOREXIA NERVOSA, BINGE EATING/PURGING TYPE Status: Acute (3) HFrEF (heart failure with reduced ejection fraction) Code(s): I50.20 - UNSPECIFIED SYSTOLIC (CONGESTIVE) HEART FAILURE Status: Acute Qualifiers: Heart failure chronicity: unspecified Qualified Code(s): I50.20 - Unspecified systolic (congestive) heart failure (4) Anxiety Code(s): F41.9 - ANXIETY DISORDER, UNSPECIFIED Status: Acute (5) Depression Code(s): F32.9 - MAJOR DEPRESSIVE DISORDER, SINGLE EPISODE, UNSPECIFIED Status : Acute Qualifiers: Depression Type: major depressive disorder Major depression recurrence: unspecified whether recurrent Active/Remission status: remission status unspecified Qualified Code(s): F32.9 - Major depressive disorder, single episode, unspecified (6) Femur fracture, left Code(s): S72.92XA - UNSP FRACTURE OF LEFT FEMUR, INIT ENCNTR FOR CLOSED FRACTURE Status: Acute Qualifiers: Fracture alignment: nondisplaced (7) Osteoporosis Code(s): M81.0 - AGE-RELATED OSTEOPOROSIS W/O CURRENT PATHOLOGICAL FRACTURE Status: Acute Qualifiers: Osteoporosis type: unspecified Presence of current pathological fracture: unspecified Qualified Code(s): M81.0 - Age-related osteoporosis without current pathological fracture (8) Vitamin D deficiency Code(s): E55.9 - VITAMIN D DEFICIENCY, UNSPECIFIED Status: Acute - Plan Plan: Malnutrition 2/2 Anorexia/Bulimia Patient with h/o longstanding anorexia/bulimia, but had acute worsening with decline in BMI due to mom diagnosed with terminal cancer. Pre-albumin low at 14, but has improved slightly to 17. Vit D low. Mag, Phos, B12, INR WNL. Pt has still not gained any weight since admission, suspect she is still purging. - Mirtazapine - building estimator consulted, appreciate recs - patient is amenable to inpatient treatment. CM on board to help with placement - consulted [facility], no recs for inpatient psych tx - Sitter with patient and water to bathroom turned off to better monitor eating habits and purging activity. Non-sustained Ventricular Tachycardia- resolved 4 episodes of 6 or so beats overnight 05/06. Patient has history of smoking Echo shows EF 35-40%. Stress test NL with normal EF - Appreciate Cardiology recs Left femur fracture- stable fall in January 2018, was supposed to follow with ortho - Dr. Funez consulted, Rec'd twyla, f/u in 6-8 wks Osteoporosis h/o multiple fractures, likely 2/2 chronic malnutrition. Pt with low vit D. - Vit D supplementation Depression No active SI. Passive thoughts. - zoloft 100mg BID - mirtazapine Anxiety - Zoloft GERD - continue protonix Code: Full code ppx: [email or web address] Dispo: pending inpatient placement. No inpatient eating disorder facilities in [place] will accept her insurance. There are some out of state facilities that patient would consider if they accept her insurance. Unable to get placement at SNF due to pt being cleared by PT. PCP is working on potential long-term fdc placement and outpt referral to psychiatry. <Nicole Mercado - Last Filed: 05/14/18 07:01> Attending Addendum - Attending Addendum Date/Time: 05/14/18 1006 I personally evaluated the patient and discussed the management with Dr. Mercado. I agree with the History, Examination, Assessment and Plan documented above with any addition or exceptions noted below. Patient spoke with me this morning and overall denied complaints or concerns other than some PICC line tenderness. She otherwise reported feeling well. With sitter in the room, we are hoping that there are no further episodes of purging activity. The goal of the patient's hospitalization was to improve her weight and correct metabolic derangements that were a treat to her life associated with her bulemia. Her electrolytes are mildly improved, but she continues to show signs of malnutrition and non-homeostasis in the body. Not bradycardic, but becomes significantly orthostatic with standing. She has not gained any weight meaningfully. We will discuss with dietary, but at this point I would recommend TPN therapy over the next few days to help ensure she is receiving adequate nutrition. Outpatient placement at treatment facility continues, but we also have to ensure she meets the minimum health requirements to be accepted. Will keep close eye on labs to ensure no refeeding syndrome, and allow her to consume PO as much as she can to supplement calories. Hopeful that TPN will be very short lived and she will be more agreeable to higher caloric intake. <Inocencio Perla - Last Filed: 05/14/18 10:09>
[2018-05-14] MEDS: Gabapentin 300 MG CAP PO SCH ×3 (09:36→21:31)
[2018-05-14] MEDS: Multivit, Chewable SF 1 TAB PO SCH (09:38)
[2018-05-14] MEDS: Enoxaparin Sodium 40 MG/0.4 ML SYRINGE SC SCH (09:39)
[2018-05-14] MEDS: Cholecalciferol (Vitamin D3) 400 UNITS TAB PO SCH (09:39)
[2018-05-14] MEDS ORDERED: Pharmacy to MANAGE TPN ELECTROLYTES IVPB PRN (15:43)
[2018-05-14] MEDS: Mirtazapine 15 MG TAB PO SCH (21:31)
[2018-05-14] MEDS: Multivitamins, Adult 10 ML, Multitrace-5 5 ML in D15W-AA 5% with Lytes 2,000 ML IV SCH (22:18)
[2018-05-14] MEDS: Melatonin 3 MG TAB PO PRN (23:08)
[2018-05-15] MEDS: Nicotine 14 MG PATCH TD SCH (06:04)
--- NOTE | 2018-05-15 06:50 | PDOC.FM ---
- Subjective Subjective: Patient denies any purging activity. She has had no problems since getting started on the TPN. She reports that she continued to eat her meals as well. She denies any pain, N/V. - Objective MAR Reviewed: Yes Vital Signs & Weight: Vital Signs (12 hours) Temp Pulse Resp BP Pulse Ox 05/14/18 20:35 99 05/14/18 20:17 98.1 F 70 16 90/60 99 Weight Admit Weight 36.514 kg Weight 38.045 kg I&O: 05/13/18 05/14/18 05/15/18 06:59 06:59 06:59 Intake Total 2430 2790 3380 Balance 2430 2790 3380 Result Diagrams: 05/13/18 11:07 05/13/18 11:07 <Nicole Mercado - Last Filed: 05/15/18 06:46> - Objective Vital Signs & Weight: Vital Signs (12 hours) Temp Pulse Resp BP BP BP Pulse Ox 05/15/18 07:21 97.9 F 59 L 18 87/56 L 86/57 L 101/71 95 Weight Admit Weight 36.514 kg Weight 38.045 kg I&O: 05/14/18 05/15/18 05/16/18 06:59 06:59 06:59 Intake Total 2790 3380 Balance 2790 3380 Result Diagrams: 05/13/18 11:07 05/15/18 06:27 <Inocencio Perla - Last Filed: 05/15/18 09:55> Phys Exam - Physical Examination Constitutional: NAD cachectic appearing HEENT: moist MMs, sclera anicteric sunken cheeks Respiratory: no wheezing, no rales, no rhonchi, clear to auscultation bilateral Cardiovascular: RRR, no significant murmur, no rub Gastrointestinal: soft, non-tender, no distention, positive bowel sounds Musculoskeletal: no edema, pulses present Psychiatric: normal affect, A&O x 3 <Nicole Mercado - Last Filed: 05/15/18 06:46> Dx/Plan (1) Malnutrition due to starvation Code(s): E46 - UNSPECIFIED PROTEIN-CALORIE MALNUTRITION Status: Acute (2) Anorexia nervosa with bulimia Code(s): F50.02 - ANOREXIA NERVOSA, BINGE EATING/PURGING TYPE Status: Acute (3) HFrEF (heart failure with reduced ejection fraction) Code(s): I50.20 - UNSPECIFIED SYSTOLIC (CONGESTIVE) HEART FAILURE Status: Acute Qualifiers: Heart failure chronicity: unspecified Qualified Code(s): I50.20 - Unspecified systolic (congestive) heart failure (4) Anxiety Code(s): F41.9 - ANXIETY DISORDER, UNSPECIFIED Status: Acute (5) Depression Code(s): F32.9 - MAJOR DEPRESSIVE DISORDER, SINGLE EPISODE, UNSPECIFIED Status : Acute Qualifiers: Depression Type: major depressive disorder Major depression recurrence: unspecified whether recurrent Active/Remission status: remission status unspecified Qualified Code(s): F32.9 - Major depressive disorder, single episode, unspecified (6) Femur fracture, left Code(s): S72.92XA - UNSP FRACTURE OF LEFT FEMUR, INIT ENCNTR FOR CLOSED FRACTURE Status: Acute Qualifiers: Fracture alignment: nondisplaced (7) Osteoporosis Code(s): M81.0 - AGE-RELATED OSTEOPOROSIS W/O CURRENT PATHOLOGICAL FRACTURE Status: Acute Qualifiers: Osteoporosis type: unspecified Presence of current pathological fracture: unspecified Qualified Code(s): M81.0 - Age-related osteoporosis without current pathological fracture (8) Vitamin D deficiency Code(s): E55.9 - VITAMIN D DEFICIENCY, UNSPECIFIED Status: Acute - Plan Plan: Malnutrition 2/2 Anorexia/Bulimia Patient with h/o longstanding anorexia/bulimia, but had acute worsening with decline in BMI due to mom diagnosed with terminal cancer. Pre-albumin low at 14, but has improved slightly to 17. Vit D low. Mag, Phos, B12, INR WNL. Pt has gained about 1 kg since being started on TPN. - Mirtazapine - gizzard puller consulted, appreciate recs - patient is amenable to inpatient treatment. CM on board to help with placement - consulted [facility], no recs for inpatient psych tx Non-sustained Ventricular Tachycardia- resolved 4 episodes of 6 or so beats overnight 05/06. Patient has history of smoking Echo shows EF 35-40%. Stress test NL with normal EF - Appreciate Cardiology recs Left femur fracture- stable fall in January 2018, was supposed to follow with ortho - Dr. Funez consulted, Rec'd twyla, f/u in 6-8 wks Osteoporosis h/o multiple fractures, likely 2/2 chronic malnutrition. Pt with low vit D. - Vit D supplementation Depression No active SI. Passive thoughts. - zoloft 100mg BID - mirtazapine Anxiety - Zoloft GERD - continue protonix Code: Full code Dispo: pending inpatient placement. No inpatient eating disorder facilities in [place] will accept her insurance. There are some out of state facilities that patient would consider if they accept her insurance. Unable to get placement at SNF due to pt being cleared by PT. PCP is working on potential long-term longterm placement and outpt referral to psychiatry. <Nicole Mercado - Last Filed: 05/15/18 06:46> Attending Addendum - Attending Addendum Date/Time: 05/15/18954 I personally evaluated the patient and discussed the management with Dr. Mercado. I agree with the History, Examination, Assessment and Plan documented above with any addition or exceptions noted below. Patient resting comfortably this morning. She has had no issues since starting TPN. Will need frequent lab monitoring while on this therapy. Denies purging and has increased her PO intake. Prealbumin improved today. Continue current plan for now. <Inocencio Perla - Last Filed: 05/15/18 09:55>
[2018-05-15 06:53] LABS: INR-International Normal Ratio 0.9; PTT 30.9 SEC (22.9-36.1); Prothrombin Time 12.5 SEC (12.0-14.7)
[2018-05-15 07:24] LABS: ALT (SGPT) 16 U/L (8-55); AST (SGOT) 27 U/L (5-34); Albumin 3.6 g/dL (3.5-5.0); Alkaline Phosphatase 108 U/L (40-150); Anion Gap 11 mmol/L (10-20); BUN (Urea Nitrogen) 13 mg/dL (7.0-18.7); Bilirubin, Total Less than 0.2 mg/dL (0.2-1.2); Calc. Creatinine Clearance 64 mL/min (70-130); Calcium 9.1 mg/dL (7.8-10.44); Carbon Dioxide 30 mmol/L (22-29); Cardiac Risk 2.4 (Less than 4.5); Chloride 106 mmol/L (98-107); Cholesterol 172 mg/dl (< 200 Desired); Estimated GFR-MDRD Greater than 90; Globulin 2.9 g/dL (2.4-3.5); Glucose 74 mg/dL (70-105); HDL Cholesterol 73 mg/dL (>60 Neg Risk); LDL Cholesterol, Calculated 82 mg/dL; Magnesium 1.9 mg/dL (1.6-2.6); Phosphorus 4.2 mg/dL (2.3-4.7); Potassium 3.8 mmol/L (3.5-5.1); Protein, Total 6.5 g/dL (6.0-8.3); Sodium 143 mmol/L (136-145); Triglycerides 84 mg/dL (Less than 150)
[2018-05-15] MEDS: Enoxaparin Sodium 40 MG/0.4 ML SYRINGE SC SCH (08:52)
[2018-05-15] MEDS: Cholecalciferol (Vitamin D3) 400 UNITS TAB PO SCH (09:32)
[2018-05-15] MEDS: Gabapentin 300 MG CAP PO SCH ×3 (09:32→21:30)
[2018-05-15] MEDS: Multivit, Chewable SF 1 TAB PO SCH (14:56)
[2018-05-15] MEDS: Mirtazapine 15 MG TAB PO SCH (21:30)
[2018-05-15] MEDS: Multivitamins, Adult 10 ML, Multitrace-5 5 ML in D15W-AA 5% with Lytes 2,000 ML IV SCH (22:44)
[2018-05-16] MEDS: Nicotine 14 MG PATCH TD SCH (05:38)
[2018-05-16 05:49] LABS: PTT 30.5 SEC (22.9-36.1)
[2018-05-16 05:51] LABS: ALT (SGPT) 13 U/L (8-55); AST (SGOT) 22 U/L (5-34); Albumin 3.2 g/dL (3.5-5.0); Alkaline Phosphatase 96 U/L (40-150); Anion Gap 8 mmol/L (10-20); BUN (Urea Nitrogen) 15 mg/dL (7.0-18.7); Bilirubin, Total Less than 0.2 mg/dL (0.2-1.2); Calc. Creatinine Clearance 69 mL/min (70-130); Calcium 8.8 mg/dL (7.8-10.44); Carbon Dioxide 30 mmol/L (22-29); Cardiac Risk 2.4 (Less than 4.5); Chloride 109 mmol/L (98-107); Cholesterol 150 mg/dl (< 200 Desired); Estimated GFR-MDRD Greater than 90; Globulin 2.5 g/dL (2.4-3.5); Glucose 91 mg/dL (70-105); HDL Cholesterol 62 mg/dL (>60 Neg Risk); LDL Cholesterol, Calculated 70 mg/dL; Magnesium 1.8 mg/dL (1.6-2.6); Phosphorus 3.6 mg/dL (2.3-4.7); Protein, Total 5.7 g/dL (6.0-8.3); Sodium 143 mmol/L (136-145); Triglycerides 91 mg/dL (Less than 150)
[2018-05-16 06:42] LABS: INR-International Normal Ratio 0.9; Prothrombin Time 12.4 SEC (12.0-14.7)
--- NOTE | 2018-05-16 08:48 | PDOC.FM ---
- Subjective Subjective: Patient denies any purging activity over this whole weekend, unsure if that indicates that she was purging prior to this weekend. She has been eating 100% of her meals per the nursing report. She has not contacted the facility in [place]. She reports that she is sleeping well, denies N/V, F/C, palpitations , CP. She reports having normal BM's. Pt reported on Wednesday some fears regarding the TPN. She stated that she gets paranoid that every time someone comes to draw her blood or give her a shot, she thinks they are trying to secretly give her food into her veins. She agreed to TPN though after a lengthy discussion and having the liability claims representative come and explain exactly what would be in it. - Objective MAR Reviewed: Yes Vital Signs & Weight: Vital Signs (12 hours) Temp Pulse Resp BP Pulse Ox 05/16/18 07:44 98.3 F 67 12 109/62 96 Weight Admit Weight 36.514 kg Weight 39.916 kg I&O: 05/15/18 05/16/18 05/17/18 06:59 06:59 06:59 Intake Total 3380 1560 Balance 3380 1560 Result Diagrams: 05/13/18 11:07 05/16/18 04:55 <iNcole Mercado - Last Filed: 05/16/18 08:44> - Objective Vital Signs & Weight: Vital Signs (12 hours) Temp Pulse Resp BP BP Pulse Ox 05/16/18 19:45 97.4 F L 89 16 98/64 96 05/16/18 16:00 93 16 88/59 L 96 Weight Admit Weight 36.514 kg Weight 39.916 kg I&O: 05/15/18 05/16/18 05/17/18 06:59 06:59 06:59 Intake Total 3380 1560 2090 Balance 3380 1560 2090 Result Diagrams: 05/13/18 11:07 05/16/18 04:55 <Sarah Guzmán - Last Filed: 05/16/18 21:16> Phys Exam - Physical Examination Constitutional: NAD cachectic appearing HEENT: moist MMs, sclera anicteric sunken cheeks, dentures in place Respiratory: no wheezing, no rales, no rhonchi, clear to auscultation bilateral Cardiovascular: RRR, no significant murmur, no rub Gastrointestinal: soft, non-tender, no distention, positive bowel sounds Musculoskeletal: no edema, pulses present Neurological: non-focal, moves all 4 limbs Psychiatric: normal affect, A&O x 3 <Nicole Mercado - Last Filed: 05/16/18 08:44> Dx/Plan (1) Malnutrition due to starvation Code(s): E46 - UNSPECIFIED PROTEIN-CALORIE MALNUTRITION Status: Acute (2) Anorexia nervosa with bulimia Code(s): F50.02 - ANOREXIA NERVOSA, BINGE EATING/PURGING TYPE Status: Acute (3) HFrEF (heart failure with reduced ejection fraction) Code(s): I50.20 - UNSPECIFIED SYSTOLIC (CONGESTIVE) HEART FAILURE Status: Acute Qualifiers: Heart failure chronicity: unspecified Qualified Code(s): I50.20 - Unspecified systolic (congestive) heart failure (4) Anxiety Code(s): F41.9 - ANXIETY DISORDER, UNSPECIFIED Status: Acute (5) Depression Code(s): F32.9 - MAJOR DEPRESSIVE DISORDER, SINGLE EPISODE, UNSPECIFIED Status : Acute Qualifiers: Depression Type: major depressive disorder Major depression recurrence: unspecified whether recurrent Active/Remission status: remission status unspecified Qualified Code(s): F32.9 - Major depressive disorder, single episode, unspecified (6) Femur fracture, left Code(s): S72.92XA - UNSP FRACTURE OF LEFT FEMUR, INIT ENCNTR FOR CLOSED FRACTURE Status: Acute Qualifiers: Fracture alignment: nondisplaced (7) Osteoporosis Code(s): M81.0 - AGE-RELATED OSTEOPOROSIS W/O CURRENT PATHOLOGICAL FRACTURE Status: Acute Qualifiers: Osteoporosis type: unspecified Presence of current pathological fracture: unspecified Qualified Code(s): M81.0 - Age-related osteoporosis without current pathological fracture (8) Vitamin D deficiency Code(s): E55.9 - VITAMIN D DEFICIENCY, UNSPECIFIED Status: Acute - Plan Plan: Malnutrition 2/2 Anorexia Nervosa, binge-eating/purging type Patient with h/o longstanding anorexia, binge-eating/purging type, but had acute worsening with decline in BMI due to mom diagnosed with terminal cancer. Pre-albumin initially low at 14, but has improved to 17 and then to 19 after initiation of TPN. Vit D low. Mag, Phos, B12, INR WNL. Pt has gained about 3.5 kg since admission. Pt has paranoid delusions regarding people trying to secretly inject food into her. - Mirtazapine - liability claims representative consulted, appreciate recs - patient is amenable to inpatient treatment at an eating disorder facility. CM on board to help with placement - consulted [facility], no recs for inpatient psych tx - Will discuss case with outpatient psychiatrist and try to get recs regarding paranoid delusions Non-sustained Ventricular Tachycardia- resolved 4 episodes of 6 or so beats overnight 05/06. Echo shows EF 35-40%. Stress test NL with normal EF - Appreciate Cardiology recs Left femur fracture- stable fall in January 2018, was supposed to follow with ortho - Dr. Funez consulted, Rec'd twyla, f/u in 6-8 wks Osteoporosis h/o multiple fractures, likely 2/2 chronic malnutrition. Pt with low vit D. - Vit D supplementation Depression No active SI. - zoloft 100mg BID - mirtazapine Anxiety - Zoloft GERD - continue protonix Code: Full code Dispo: pending inpatient placement. No inpatient eating disorder facilities in [place] will accept her insurance. There are some out of state facilities that patient would consider if they accept her insurance. Unable to get placement at SNF due to pt being cleared by PT. PCP is working on potential long-term [facility] placement and outpt referral to psychiatry. <Nicole Mercado - Last Filed: 05/16/18 08:44> (1) Malnutrition due to starvation Code(s): E46 - UNSPECIFIED PROTEIN-CALORIE MALNUTRITION Status: Acute (2) Anorexia nervosa with bulimia Code(s): F50.02 - ANOREXIA NERVOSA, BINGE EATING/PURGING TYPE Status: Acute (3) Anxiety Code(s): F41.9 - ANXIETY DISORDER, UNSPECIFIED Status: Acute (4) Depression Code(s): F32.9 - MAJOR DEPRESSIVE DISORDER, SINGLE EPISODE, UNSPECIFIED Status : Acute Qualifiers: Depression Type: major depressive disorder Major depression recurrence: unspecified whether recurrent Active/Remission status: remission status unspecified Qualified Code(s): F32.9 - Major depressive disorder, single episode, unspecified (5) Osteoporosis Code(s): M81.0 - AGE-RELATED OSTEOPOROSIS W/O CURRENT PATHOLOGICAL FRACTURE Status: Acute Qualifiers: Osteoporosis type: unspecified Presence of current pathological fracture: unspecified Qualified Code(s): M81.0 - Age-related osteoporosis without current pathological fracture (6) Femur fracture, left Code(s): S72.92XA - UNSP FRACTURE OF LEFT FEMUR, INIT ENCNTR FOR CLOSED FRACTURE Status: Acute Qualifiers: Fracture alignment: nondisplaced <Sarah Guzmán - Last Filed: 05/16/18 21:16> Attending Addendum - Attending Addendum Date/Time: 05/16/182111 I personally evaluated the patient and discussed the management with Dr. Mercado I agree with the History, Examination, Assessment and Plan documented above with any addition or exceptions noted below. 43 yo female with history of severe anorexia admitted for severe malnutrition and bradycardia HD# 11 Awaiting placement in inpatient center. Reports eatting without purging. Weight increasing. On TPN. Will add BID caloric rich liquids. Will followup with psych to discuss medications to help with severity of disorder. Patient still not getting out of bed. ABrayMD <Sarah Guzmán - Last Filed: 05/16/18 21:16>
[2018-05-16] MEDS: Gabapentin 300 MG CAP PO SCH ×3 (08:56→21:26)
[2018-05-16] MEDS: Cholecalciferol (Vitamin D3) 400 UNITS TAB PO SCH (08:57)
[2018-05-16] MEDS: Multivit, Chewable SF 1 TAB PO SCH (08:57)
[2018-05-16] MEDS: Enoxaparin Sodium 40 MG/0.4 ML SYRINGE SC SCH (08:58)
[2018-05-16] MEDS: Mirtazapine 15 MG TAB PO SCH (21:26)
[2018-05-16] MEDS: Multivitamins, Adult 10 ML, Multitrace-5 5 ML in D15W-AA 5% with Lytes 2,000 ML IV SCH (22:31)
[2018-05-17 04:57] LABS: INR-International Normal Ratio 0.9; PTT 29.3 SEC (22.9-36.1); Prothrombin Time 12.3 SEC (12.0-14.7)
[2018-05-17 05:32] LABS: ALT (SGPT) 14 U/L (8-55); AST (SGOT) 24 U/L (5-34); Albumin 3.4 g/dL (3.5-5.0); Alkaline Phosphatase 99 U/L (40-150); Anion Gap 11 mmol/L (10-20); BUN (Urea Nitrogen) 16 mg/dL (7.0-18.7); Bilirubin, Total Less than 0.2 mg/dL (0.2-1.2); Calc. Creatinine Clearance 70 mL/min (70-130); Calcium 9.1 mg/dL (7.8-10.44); Carbon Dioxide 28 mmol/L (22-29); Cardiac Risk 2.5 (Less than 4.5); Chloride 110 mmol/L (98-107); Cholesterol 168 mg/dl (< 200 Desired); Estimated GFR-MDRD Greater than 90; Globulin 2.7 g/dL (2.4-3.5); Glucose 82 mg/dL (70-105); HDL Cholesterol 68 mg/dL (>60 Neg Risk); LDL Cholesterol, Calculated 78 mg/dL; Magnesium 2.1 mg/dL (1.6-2.6); Phosphorus 3.1 mg/dL (2.3-4.7); Potassium 4.3 mmol/L (3.5-5.1); Protein, Total 6.1 g/dL (6.0-8.3); Sodium 145 mmol/L (136-145); Triglycerides 110 mg/dL (Less than 150)
[2018-05-17] MEDS: Nicotine 14 MG PATCH TD SCH (05:43)
[2018-05-17] MEDS: Multivit, Chewable SF 1 TAB PO SCH (08:38)
[2018-05-17] MEDS: Gabapentin 300 MG CAP PO SCH ×3 (08:38→20:56)
[2018-05-17] MEDS: Cholecalciferol (Vitamin D3) 400 UNITS TAB PO SCH (08:38)
[2018-05-17] MEDS: Enoxaparin Sodium 40 MG/0.4 ML SYRINGE SC SCH (08:39)
--- NOTE | 2018-05-17 08:39 | PDOC.FM ---
- Subjective Subjective: There was concern by shield cleaner about pt ordering 2 trays of food with each meal and possibly purging afterwards. Pt reports that she isn't eating everything on the trays, but just picking out what she wants. However, any tray I have seen has been completely empty. The patient also reports that she has not had any purging activity in the past two days, however she reported the same thing yesterday. She endorses feeling tired and weak. Denies palpitations, CP, or SOB. - Objective MAR Reviewed: Yes Vital Signs & Weight: Vital Signs (12 hours) Temp Pulse Resp BP Pulse Ox 05/17/18 07:37 97.8 F 65 16 77/46 L 94 L Weight Admit Weight 36.514 kg Weight 37.903 kg I&O: 05/16/18 05/17/18 05/18/18 06:59 06:59 06:59 Intake Total 2220 3950 Balance 2220 3950 Result Diagrams: 05/13/18 11:07 05/17/18 04:07 <Nicole Mercado - Last Filed: 05/17/18 08:37> - Objective Vital Signs & Weight: Vital Signs (12 hours) Temp Pulse Resp BP Pulse Ox 05/19/18 16:00 97.6 F 79 18 86/59 L 97 05/19/18 11:20 98.3 F 69 16 85/50 L 94 L 05/19/18 08:00 94 L 05/19/18 07:27 98.2 F 69 16 91/58 L 94 L Weight Admit Weight 36.514 kg Weight 35.409 kg I&O: 05/18/18 05/19/18 05/20/18 06:59 06:59 06:59 Intake Total 1680 1560 480 Balance 1680 1560 480 Result Diagrams: 05/13/18 11:07 05/19/18 04:16 <Sarah Guzmán - Last Filed: 05/19/18 17:02> Phys Exam - Physical Examination Constitutional: NAD cachetic appearing HEENT: moist MMs, sclera anicteric sunken cheeks Respiratory: no wheezing, no rales, no rhonchi, clear to auscultation bilateral Cardiovascular: RRR, no significant murmur Gastrointestinal: soft, non-tender, no distention Musculoskeletal: no edema, pulses present Neurological: non-focal, moves all 4 limbs Psychiatric: normal affect, A&O x 3 <Nicole Mercado - Last Filed: 05/17/18 08:37> Dx/Plan (1) Malnutrition due to starvation Code(s): E46 - UNSPECIFIED PROTEIN-CALORIE MALNUTRITION Status: Acute (2) Anorexia nervosa with bulimia Code(s): F50.02 - ANOREXIA NERVOSA, BINGE EATING/PURGING TYPE Status: Acute (3) Anxiety Code(s): F41.9 - ANXIETY DISORDER, UNSPECIFIED Status: Acute (4) Depression Code(s): F32.9 - MAJOR DEPRESSIVE DISORDER, SINGLE EPISODE, UNSPECIFIED Status : Acute Qualifiers: Depression Type: major depressive disorder Major depression recurrence: unspecified whether recurrent Active/Remission status: remission status unspecified Qualified Code(s): F32.9 - Major depressive disorder, single episode, unspecified (5) Femur fracture, left Code(s): S72.92XA - UNSP FRACTURE OF LEFT FEMUR, INIT ENCNTR FOR CLOSED FRACTURE Status: Acute Qualifiers: Fracture alignment: nondisplaced (6) Osteoporosis Code(s): M81.0 - AGE-RELATED OSTEOPOROSIS W/O CURRENT PATHOLOGICAL FRACTURE Status: Acute Qualifiers: Osteoporosis type: unspecified Presence of current pathological fracture: unspecified Qualified Code(s): M81.0 - Age-related osteoporosis without current pathological fracture (7) Vitamin D deficiency Code(s): E55.9 - VITAMIN D DEFICIENCY, UNSPECIFIED Status: Acute - Plan Plan: Malnutrition 2/2 Anorexia Nervosa, binge-eating/purging type Patient with h/o longstanding anorexia, binge-eating/purging type, but had acute worsening with decline in BMI due to mom diagnosed with terminal cancer. Pre-albumin initially low at 14, but has improved to 17 and then to 19 after initiation of TPN. Vit D low. Mag, Phos, B12, INR WNL. Pt has gained about 1 kg since admission. Pt has paranoid delusions regarding people trying to secretly inject food into her. - Mirtazapine - shield cleaner consulted, appreciate recs - patient is amenable to inpatient treatment at an eating disorder facility. CM on board to help with placement - consulted [facility], no recs for inpatient psych tx - Discussed case with outpatient psychiatrist who recommended initiating Olanzapine. Pt was agreeable to this. - Ensure scheduled BID, Diet ad gil - Continue TPN - Goal BMI > 13, currently 11.3. Non-sustained Ventricular Tachycardia- resolved 4 episodes of 6 or so beats overnight 05/06. Echo showed EF 35-40%. Stress test NL with normal EF - Appreciate Cardiology recs Left femur fracture- stable fall in January 2018, was supposed to follow with ortho - Dr. Funez consulted, Rec'd walker, f/u in 6-8 wks Osteoporosis h/o multiple fractures, likely 2/2 chronic malnutrition. Pt with low vit D. - Vit D supplementation Depression No active SI. - zoloft 100mg BID - mirtazapine Anxiety - Zoloft GERD - continue protonix Code: Full code Dispo: pending inpatient placement. No inpatient eating disorder facilities in [place] will accept her insurance. There are some out of state facilities that patient would consider if they accept her insurance. Unable to get placement at SNF due to pt being cleared by PT. PCP is working on potential long-term long-term placement and outpt referral to psychiatry. <Nicole Mercado - Last Filed: 05/17/18 08:37> (1) Malnutrition due to starvation Code(s): E46 - UNSPECIFIED PROTEIN-CALORIE MALNUTRITION Status: Acute (2) Anorexia nervosa with bulimia Code(s): F50.02 - ANOREXIA NERVOSA, BINGE EATING/PURGING TYPE Status: Acute (3) Anxiety Code(s): F41.9 - ANXIETY DISORDER, UNSPECIFIED Status: Acute (4) Depression Code(s): F32.9 - MAJOR DEPRESSIVE DISORDER, SINGLE EPISODE, UNSPECIFIED Status : Acute Qualifiers: Depression Type: major depressive disorder Major depression recurrence: unspecified whether recurrent Active/Remission status: remission status unspecified Qualified Code(s): F32.9 - Major depressive disorder, single episode, unspecified (5) Osteoporosis Code(s): M81.0 - AGE-RELATED OSTEOPOROSIS W/O CURRENT PATHOLOGICAL FRACTURE Status: Acute Qualifiers: Osteoporosis type: unspecified Presence of current pathological fracture: unspecified Qualified Code(s): M81.0 - Age-related osteoporosis without current pathological fracture (6) Femur fracture, left Code(s): S72.92XA - UNSP FRACTURE OF LEFT FEMUR, INIT ENCNTR FOR CLOSED FRACTURE Status: Acute Qualifiers: Fracture alignment: nondisplaced <Guzmán,Sarah - Last Filed: 05/19/18 17:02> Attending Addendum - Attending Addendum Date/Time: 05/17/18 8145 I personally evaluated the patient and discussed the management with Dr. Mercado I agree with the History, Examination, Assessment and Plan documented above with any addition or exceptions noted below. 43 yo female with history of severe anorexia, MDD, anxiety admitted for severe malnutrition and bradycardia HD# 12 Bradycardia now resovled. Electrolytes stable. No longer on tele. Can discontinue daily labs. Medically stable. Patient currently on TPN. Continues to eat and purge. Will order sitter at all times to be with patient. Continues to go outside in wheelchair. Minimally ambulatory due to osteoporosis and extensive hx of fractures. Continue to monitor. Awaiting treatment facility placement. Continues to have phone therapy with salmon gillnet vessel operator from [facility]. Will adjust psych medications based on [facility] psych recommendations. ABrayMD <Sarah Guzmán - Last Filed: 05/19/18 17:02>
[2018-05-17] MEDS: OLANZapine 5 MG TAB PO SCH (14:51)
[2018-05-17] MEDS: Acetaminophen 325 MG TAB PO PRN (16:28)
--- NOTE | 2018-05-17 16:40 | PDOC.EVN ---
Event Note - Event Note Event Note: Ms. Raza is a 43 yo f who was admitted for acute malnutrition (weight loss of 6-7lbs in 3 weeks) in the setting of chronic malnutrition d/t her longstanding pmh of anorexia and bulimia. When I first met Jose she had a BMI of 12. This was in October 2017. When we admitted her to the hospital, this was a follow-up apt from three weeks prior. In those short three weeks, she had dropped 6 pounds and her BMI was 11. Today, Ms Raza and I discussed in a deeper context, the nature of her disease. She states that sometimes she binges. She said, "it's a whole event." She will cook a lot of food, and it will always a be a time when no one is around, and then she will purge. She then could have days go by where she doesn' t eat at all and also doesn't purge. She stated that for that reason, she was given both diagnoses of anorexia and bulimia. She says she hasn't purged in three days here at the hospital. We also discussed the possibility of a sitter in the room, which has been a consideration before. She says it makes her exhausted to have someone in the room, but she understands why. She didn't like one of the sitters because they talked to her nonstop about her eating disorder. She knows the purpose of a sitter though and states that it is so we can figure out if and when she purges. I discussed the option of writing down the times she has purged when she was first admitted, and she says she hasn't thought about that in a while. She says she would do it, but also said she hasn' t purged in three days. She says it hurts her when people say or think that this disease is something that she "does to herself." She hates that she has this disease, but she's had it so long that it's a way of life now. But, she wants to change. She told me she never received the location and phone number of the place in [place] to go for inpatient rehab. She wants to go somewhere, even a custodial, to build up strength. I discussed that I would get her that information. She would like to do the walking program here for some physical activity. She understands that she could from this disease and wants to get stronger.
[2018-05-17] MEDS: Mirtazapine 15 MG TAB PO SCH (20:56)
[2018-05-17] MEDS: Multivitamins, Adult 10 ML, Multitrace-5 5 ML in D15W-AA 5% with Lytes 2,000 ML IV SCH (22:05)
[2018-05-18 05:29] LABS: INR-International Normal Ratio 0.9; PTT 28.5 SEC (22.9-36.1); Prothrombin Time 12.4 SEC (12.0-14.7)
[2018-05-18 05:48] LABS: ALT (SGPT) 12 U/L (8-55); AST (SGOT) 20 U/L (5-34); Albumin 3.3 g/dL (3.5-5.0); Alkaline Phosphatase 90 U/L (40-150); Anion Gap 10 mmol/L (10-20); BUN (Urea Nitrogen) 17 mg/dL (7.0-18.7); Bilirubin, Total Less than 0.2 mg/dL (0.2-1.2); Calc. Creatinine Clearance 74 mL/min (70-130); Calcium 8.9 mg/dL (7.8-10.44); Carbon Dioxide 28 mmol/L (22-29); Cardiac Risk 2.6 (Less than 4.5); Chloride 109 mmol/L (98-107); Cholesterol 173 mg/dl (< 200 Desired); Estimated GFR-MDRD Greater than 90; Globulin 2.8 g/dL (2.4-3.5); Glucose 83 mg/dL (70-105); HDL Cholesterol 66 mg/dL (>60 Neg Risk); LDL Cholesterol, Calculated 86 mg/dL; Magnesium 1.9 mg/dL (1.6-2.6); Potassium 4.1 mmol/L (3.5-5.1); Protein, Total 6.1 g/dL (6.0-8.3); Sodium 143 mmol/L (136-145); Triglycerides 106 mg/dL (Less than 150)
[2018-05-18] MEDS: Nicotine 14 MG PATCH TD SCH (06:17)
--- NOTE | 2018-05-18 08:07 | PDOC.FM ---
- Subjective Subjective: Patient asleep when I got to the room. Not interested in talking much as she was just woken up. She denies any complaints overnight. Denies any purging and states that she has been eating her meals. She denies F/C. Per the nurses notes, the sitter reported to the nursing staff that she had purged once last night. - Objective MAR Reviewed: Yes Vital Signs & Weight: Vital Signs (12 hours) Temp Pulse Resp BP BP Pulse Ox 05/18/18 07:23 98.3 F 86 16 91/57 L 96 05/17/18 20:11 97.8 F 86 18 81/44 L 98 Weight Admit Weight 36.514 kg Weight 38.283 kg I&O: 05/17/18 05/18/18 05/19/18 06:59 06:59 06:59 Intake Total 3950 1680 Balance 3950 1680 Result Diagrams: 05/13/18 11:07 05/18/18 05:08 <Nicole Mercado - Last Filed: 05/18/18 08:05> - Objective Vital Signs & Weight: Vital Signs (12 hours) Temp Pulse Resp BP Pulse Ox 05/19/18 16:00 97.6 F 79 18 86/59 L 97 05/19/18 11:20 98.3 F 69 16 85/50 L 94 L 05/19/18 08:00 94 L 05/19/18 07:27 98.2 F 69 16 91/58 L 94 L Weight Admit Weight 36.514 kg Weight 35.409 kg I&O: 05/18/18 05/19/18 05/20/18 06:59 06:59 06:59 Intake Total 1680 1560 480 Balance 1680 1560 480 Result Diagrams: 05/13/18 11:07 05/19/18 04:16 <Sarah Guzmán - Last Filed: 05/19/18 17:09> Phys Exam - Physical Examination Constitutional: NAD cachectic appearing HEENT: moist MMs, sclera anicteric Respiratory: no wheezing, no rales, no rhonchi, clear to auscultation bilateral Cardiovascular: RRR, no significant murmur, no rub Gastrointestinal: soft, non-tender, no distention, positive bowel sounds Musculoskeletal: no edema, pulses present Neurological: non-focal, moves all 4 limbs Psychiatric: normal affect, A&O x 3 <Nicole Mercado - Last Filed: 05/18/18 08:05> Dx/Plan (1) Malnutrition due to starvation Code(s): E46 - UNSPECIFIED PROTEIN-CALORIE MALNUTRITION Status: Acute (2) Anorexia nervosa with bulimia Code(s): F50.02 - ANOREXIA NERVOSA, BINGE EATING/PURGING TYPE Status: Acute (3) Anxiety Code(s): F41.9 - ANXIETY DISORDER, UNSPECIFIED Status: Acute (4) Depression Code(s): F32.9 - MAJOR DEPRESSIVE DISORDER, SINGLE EPISODE, UNSPECIFIED Status : Acute Qualifiers: Depression Type: major depressive disorder Major depression recurrence: unspecified whether recurrent Active/Remission status: remission status unspecified Qualified Code(s): F32.9 - Major depressive disorder, single episode, unspecified (5) Femur fracture, left Code(s): S72.92XA - UNSP FRACTURE OF LEFT FEMUR, INIT ENCNTR FOR CLOSED FRACTURE Status: Acute Qualifiers: Fracture alignment: nondisplaced (6) Osteoporosis Code(s): M81.0 - AGE-RELATED OSTEOPOROSIS W/O CURRENT PATHOLOGICAL FRACTURE Status: Acute Qualifiers: Osteoporosis type: unspecified Presence of current pathological fracture: unspecified Qualified Code(s): M81.0 - Age-related osteoporosis without current pathological fracture (7) Vitamin D deficiency Code(s): E55.9 - VITAMIN D DEFICIENCY, UNSPECIFIED Status: Acute - Plan Plan: Malnutrition 2/2 Anorexia Nervosa/Bulimia Patient with h/o longstanding anorexia, binging/purging type, but had acute worsening with decline in BMI due to mom diagnosed with terminal cancer. Pre-albumin initially low at 14, but has improved to 17 and then to 19 after initiation of TPN. Vit D low. Mag, Phos, B12, INR WNL. Pt has gained about 1 kg since admission. Pt has paranoid delusions regarding people trying to secretly inject food into her. - Mirtazapine - Olanzapine - director case consulted, appreciate recs - patient is amenable to inpatient treatment at an eating disorder facility. CM on board to help with placement - consulted [facility], no recs for inpatient psych tx - Ensure scheduled BID, Diet ad gil, but limit to one tray per meal - Consulted ethics committee yesterday regarding the need for a sitter and they agreed that it would be appropriate. Discussed the sitter with the patient and informed her that they will watch her eat, use the bathroom, and shower. They will also escort her when she wants to go outside. She agreed that she understood this was necessary, but wasn't happy about it. Sitter at bedside since last night. - Continue TPN - Goal BMI > 13, currently 11.3. Non-sustained Ventricular Tachycardia- resolved 4 episodes of 6 or so beats overnight 05/06. Echo showed EF 35-40%. Stress test NL with normal EF - Appreciate Cardiology recs Left femur fracture- stable fall in January 2018, was supposed to follow with ortho - Dr. Funez consulted, Rec'd twyla, f/u in 6-8 wks - Walking program Osteoporosis h/o multiple fractures, likely 2/2 chronic malnutrition. Pt with low vit D. - Vit D supplementation Depression No active SI. - zoloft 100mg BID, will consider switching to prozac in about a week. - mirtazapine Anxiety - Zoloft GERD - continue protonix Code: Full code Dispo: pending inpatient placement. No inpatient eating disorder facilities in [place] will accept her insurance. There are some out of state facilities that patient would consider if they accept her insurance. Unable to get placement at SNF due to pt being cleared by PT. PCP is working on potential long-term retirement placement and outpt referral to psychiatry. <Nicole Mercado - Last Filed: 05/18/18 08:05> (1) Malnutrition due to starvation Code(s): E46 - UNSPECIFIED PROTEIN-CALORIE MALNUTRITION Status: Acute (2) Anorexia nervosa with bulimia Code(s): F50.02 - ANOREXIA NERVOSA, BINGE EATING/PURGING TYPE Status: Acute (3) Anxiety Code(s): F41.9 - ANXIETY DISORDER, UNSPECIFIED Status: Acute (4) Depression Code(s): F32.9 - MAJOR DEPRESSIVE DISORDER, SINGLE EPISODE, UNSPECIFIED Status : Acute Qualifiers: Depression Type: major depressive disorder Major depression recurrence: unspecified whether recurrent Active/Remission status: remission status unspecified Qualified Code(s): F32.9 - Major depressive disorder, single episode, unspecified (5) Osteoporosis Code(s): M81.0 - AGE-RELATED OSTEOPOROSIS W/O CURRENT PATHOLOGICAL FRACTURE Status: Acute Qualifiers: Osteoporosis type: unspecified Presence of current pathological fracture: unspecified Qualified Code(s): M81.0 - Age-related osteoporosis without current pathological fracture (6) Femur fracture, left Code(s): S72.92XA - UNSP FRACTURE OF LEFT FEMUR, INIT ENCNTR FOR CLOSED FRACTURE Status: Acute Qualifiers: Fracture alignment: nondisplaced <Sarah Guzmán - Last Filed: 05/19/18 17:09> Attending Addendum - Attending Addendum Date/Time: 05/18/18 8643 I personally evaluated the patient and discussed the management with Dr. Mercado I agree with the History, Examination, Assessment and Plan documented above with any addition or exceptions noted below. 43 yo female with history of severe anorexia, MDD, anxiety admitted for severe malnutrition and bradycardia HD# 13 Bradycardia now resovled. Electrolytes stable. No longer on tele. Can discontinue daily labs. Medically stable. Patient currently on TPN. Now more depressed due to patient having to have a sitter. Refusing to eat today. Will have [facility] have 1 on 1 evaluation today if able. Wt has pretty much remained stable but remains concerning. Continues to go outside in wheelchair. Minimally ambulatory due to osteoporosis and extensive hx of fractures. PT to work with patient. Continue to monitor. Awaiting treatment facility placement. Will adjust psych medications based on [facility] psych recommendations. ABrayMD <Sarah Guzmán - Last Filed: 05/19/18 17:09>
[2018-05-18] MEDS: Enoxaparin Sodium 40 MG/0.4 ML SYRINGE SC SCH (08:24)
[2018-05-18] MEDS: OLANZapine 5 MG TAB PO SCH (08:26)
[2018-05-18] MEDS: Gabapentin 300 MG CAP PO SCH ×3 (08:27→21:52)
[2018-05-18] MEDS: Cholecalciferol (Vitamin D3) 400 UNITS TAB PO SCH (08:27)
[2018-05-18] MEDS: Multivit, Chewable SF 1 TAB PO SCH (13:44)
[2018-05-18] MEDS: Mirtazapine 15 MG TAB PO SCH (21:52)
[2018-05-18] MEDS: SODIUM ACETATE IV SCH (22:43)
[2018-05-18] MEDS: POTASSIUM CHLORIDE IV SCH (22:43)
[2018-05-18] MEDS: [UNRECOGNIZED DRUG - OTHER] IV SCH (22:43)
[2018-05-19 05:04] LABS: INR-International Normal Ratio 0.9; PTT 29.3 SEC (22.9-36.1); Prothrombin Time 12.4 SEC (12.0-14.7)
[2018-05-19 05:34] LABS: ALT (SGPT) 10 U/L (8-55); AST (SGOT) 19 U/L (5-34); Albumin 3.5 g/dL (3.5-5.0); Alkaline Phosphatase 96 U/L (40-150); Anion Gap 12 mmol/L (10-20); BUN (Urea Nitrogen) 21 mg/dL (7.0-18.7); Bilirubin, Total Less than 0.2 mg/dL (0.2-1.2); Calc. Creatinine Clearance 67 mL/min (70-130); Carbon Dioxide 26 mmol/L (22-29); Cardiac Risk 2.4 (Less than 4.5); Chloride 108 mmol/L (98-107); Cholesterol 171 mg/dl (< 200 Desired); Estimated GFR-MDRD Greater than 90; Globulin 2.7 g/dL (2.4-3.5); Glucose 95 mg/dL (70-105); HDL Cholesterol 71 mg/dL (>60 Neg Risk); LDL Cholesterol, Calculated 82 mg/dL; Magnesium 1.9 mg/dL (1.6-2.6); Phosphorus 4.6 mg/dL (2.3-4.7); Potassium 4.4 mmol/L (3.5-5.1); Protein, Total 6.2 g/dL (6.0-8.3); Sodium 142 mmol/L (136-145); Triglycerides 91 mg/dL (Less than 150)
[2018-05-19] MEDS: Nicotine 14 MG PATCH TD SCH (06:09)
--- NOTE | 2018-05-19 08:37 | PDOC.FM ---
- Subjective Subjective: Patient with sitter in room. Endorsed purging yesterday. She denies any abdominal pain, fevers, chills. - Objective MAR Reviewed: Yes Vital Signs & Weight: Vital Signs (12 hours) Temp Pulse Resp BP BP BP Pulse Ox 05/19/18 07:27 98.2 F 69 16 91/58 L 94 L 05/19/18 04:00 97.7 F 61 16 98/60 92 L 05/19/18 00:00 97.9 F 65 16 91/55 L 96 05/18/18 21:54 88/49 L Weight Admit Weight 36.514 kg Weight 35.409 kg I&O: 05/18/18 05/19/18 05/20/18 06:59 06:59 06:59 Intake Total 1680 1560 Balance 1680 1560 Result Diagrams: 05/13/18 11:07 05/19/18 04:16 <Nicole Mercado - Last Filed: 05/19/18 08:36> - Objective Vital Signs & Weight: Vital Signs (12 hours) Temp Pulse Resp BP Pulse Ox 05/23/18 07:23 97.7 F 89 18 97/60 98 05/23/18 03:53 97.9 F 69 16 97/62 97 05/23/18 00:00 97.9 F 68 16 94/59 L 96 Weight Admit Weight 36.514 kg Weight 36.741 kg I&O: 05/22/18 05/23/18 05/24/18 06:59 06:59 06:59 Intake Total 2940 Balance 2940 Result Diagrams: 05/13/18 11:07 05/23/18 03:59 <Sarah Guzmán - Last Filed: 05/23/18 08:16> Phys Exam - Physical Examination Constitutional: NAD cachectic appearing HEENT: moist MMs, sclera anicteric dentures in place Respiratory: no wheezing, no rales, no rhonchi, clear to auscultation bilateral Cardiovascular: RRR, no significant murmur, no rub Gastrointestinal: soft, non-tender, no distention, positive bowel sounds Musculoskeletal: no edema, pulses present Psychiatric: normal affect, A&O x 3 <Nicole Mercado - Last Filed: 05/19/18 08:36> Dx/Plan (1) Malnutrition due to starvation Code(s): E46 - UNSPECIFIED PROTEIN-CALORIE MALNUTRITION Status: Acute (2) Anorexia nervosa with bulimia Code(s): F50.02 - ANOREXIA NERVOSA, BINGE EATING/PURGING TYPE Status: Acute (3) Anxiety Code(s): F41.9 - ANXIETY DISORDER, UNSPECIFIED Status: Acute (4) Depression Code(s): F32.9 - MAJOR DEPRESSIVE DISORDER, SINGLE EPISODE, UNSPECIFIED Status : Acute Qualifiers: Depression Type: major depressive disorder Major depression recurrence: unspecified whether recurrent Active/Remission status: remission status unspecified Qualified Code(s): F32.9 - Major depressive disorder, single episode, unspecified (5) Femur fracture, left Code(s): S72.92XA - UNSP FRACTURE OF LEFT FEMUR, INIT ENCNTR FOR CLOSED FRACTURE Status: Acute Qualifiers: Fracture alignment: nondisplaced (6) Osteoporosis Code(s): M81.0 - AGE-RELATED OSTEOPOROSIS W/O CURRENT PATHOLOGICAL FRACTURE Status: Acute Qualifiers: Osteoporosis type: unspecified Presence of current pathological fracture: unspecified Qualified Code(s): M81.0 - Age-related osteoporosis without current pathological fracture (7) Vitamin D deficiency Code(s): E55.9 - VITAMIN D DEFICIENCY, UNSPECIFIED Status: Acute - Plan Plan: Malnutrition 2/2 Anorexia Nervosa/Bulimia Patient with h/o longstanding anorexia, binging/purging type, but had acute worsening with decline in BMI due to mom diagnosed with terminal cancer. Pre-albumin initially low at 14, but has improved to 17 and then to 19 after initiation of TPN. Vit D low. Mag, Phos, B12, INR WNL. Pt has paranoid delusions regarding people trying to secretly inject food into her. Pt has lost weight today from yesterday. - Mirtazapine - Olanzapine - canvass manager consulted, appreciate recs - patient is amenable to inpatient treatment at an eating disorder facility. CM on board to help with placement - consulted [facility], no recs for inpatient psych tx - Ensure scheduled BID, Diet ad gil, but limit to one tray per meal - Consulted ethics committee regarding the need for a sitter and they agreed that it would be appropriate. Discussed the sitter with the patient and informed her that they will watch her eat, use the bathroom, and shower. They will also escort her when she wants to go outside. She agreed that she understood this was necessary, but wasn't happy about it. Sitter at bedside. - Continue TPN - Goal BMI > 13, currently 10.6 Non-sustained Ventricular Tachycardia- resolved 4 episodes of 6 or so beats overnight 05/06. Echo showed EF 35-40%. Stress test NL with normal EF - Appreciate Cardiology recs Left femur fracture- stable fall in January 2018, was supposed to follow with ortho - Dr. Funez consulted, Rec'd walker, f/u in 6-8 wks - Walking program Osteoporosis h/o multiple fractures, likely 2/2 chronic malnutrition. Pt with low vit D. - Vit D supplementation Depression No active SI. - zoloft 100mg BID, will consider switching to prozac about a week after the olanzapine was started - mirtazapine Anxiety - Zoloft GERD - continue protonix Code: Full code Dispo: pending inpatient placement. No inpatient eating disorder facilities in [place] will accept her insurance. There are some out of state facilities that patient would consider if they accept her insurance. Unable to get placement at SNF due to pt being cleared by PT. PCP is working on potential long-term usp placement and outpt referral to psychiatry. <Nicole Mercado - Last Filed: 05/19/18 08:36> (1) Malnutrition due to starvation Code(s): E46 - UNSPECIFIED PROTEIN-CALORIE MALNUTRITION Status: Acute (2) Anorexia nervosa with bulimia Code(s): F50.02 - ANOREXIA NERVOSA, BINGE EATING/PURGING TYPE Status: Acute (3) Anxiety Code(s): F41.9 - ANXIETY DISORDER, UNSPECIFIED Status: Acute (4) Depression Code(s): F32.9 - MAJOR DEPRESSIVE DISORDER, SINGLE EPISODE, UNSPECIFIED Status : Acute Qualifiers: Depression Type: major depressive disorder Major depression recurrence: unspecified whether recurrent Active/Remission status: remission status unspecified Qualified Code(s): F32.9 - Major depressive disorder, single episode, unspecified (5) Osteoporosis Code(s): M81.0 - AGE-RELATED OSTEOPOROSIS W/O CURRENT PATHOLOGICAL FRACTURE Status: Acute Qualifiers: Osteoporosis type: unspecified Presence of current pathological fracture: unspecified Qualified Code(s): M81.0 - Age-related osteoporosis without current pathological fracture (6) Femur fracture, left Code(s): S72.92XA - UNSP FRACTURE OF LEFT FEMUR, INIT ENCNTR FOR CLOSED FRACTURE Status: Acute Qualifiers: Fracture alignment: nondisplaced <Sarah Guzmán - Last Filed: 05/23/18 08:16> Attending Addendum - Attending Addendum Date/Time: 05/19/1815 I personally evaluated the patient and discussed the management with Dr. Mercado I agree with the History, Examination, Assessment and Plan documented above with any addition or exceptions noted below. 43 yo female with history of severe anorexia, MDD, anxiety admitted for severe malnutrition and bradycardia HD# 14 Reports continued purging every meal. Did start to eat yesterday. Remains on TPN. No SI. Awaiting placement in eating disorder facility. ABrayMD <Sarah Guzmán - Last Filed: 05/23/18 08:16>
[2018-05-19] MEDS: Enoxaparin Sodium 40 MG/0.4 ML SYRINGE SC SCH (10:30)
[2018-05-19] MEDS: Gabapentin 300 MG CAP PO SCH ×3 (10:30→21:27)
[2018-05-19] MEDS: Cholecalciferol (Vitamin D3) 400 UNITS TAB PO SCH (10:30)
[2018-05-19] MEDS: Multivit, Chewable SF 1 TAB PO SCH (10:30)
[2018-05-19] MEDS: OLANZapine 5 MG TAB PO SCH (10:31)
[2018-05-19] MEDS ORDERED: Nicotine 14 MG PATCH TD PRN (12:00)
--- NOTE | 2018-05-19 18:55 | PDOC.EVN ---
Event Note - Event Note Event Note: Transition of Care Note: This is a continuation of the patient's hospitalization starting when I took over her care. Refer to Dr. Rishabh De Leon's transition of care note for the details of her hospitalization prior to 05/09/18. This is a 43 y/o F with longstanding h/o anorexia/bulimia, depression, osteoporosis, multiple fractures who presented due to severe malnutrition. The patient had been continuing to lose weight and had a BMI of 11. She initially had a PICC line placed with the goal of starting TPN, however the patient was eating on her own, so this was held. The patient denied purging almost every time she was asked. The patient had episodes of non-sustained v-tach and cardiology was consulted. The patient had a normal stress test and was cleared by cardiology. On 05/14/18 a pre-albumin was rechecked and it was 17, which is a slight improvement from her initial one at 14. However, since the patient had still not gained any weight and it was suspected that she was still purging, the decision was made to place the patient on TPN. This was discussed at length with the patient and with the help of the dietitian, the patient agreed to this. Later it was still suspected that the patient was purging, but was not telling us. We involved the ethics committee to determine if we could have a sitter with the patient even if she did not agree. They approved us getting a sitter, so she had a sitter with her 08/02 who would watch her in the bathroom/shower, outside smoking, eating, etc. The sitter informed us that she was in fact still purging. She was also binge eating with ordering ~5000 calories per meal and consuming most if not all of that. The patient's prealbumin improved after initiation of TPN, however, her weight remained about the same. Throughout this whole time the case advocate, our team, and the patient's brother were working hard to try to find placement for the patient. Her insurance made this very difficult. There was an eating disorder inpatient facility found in [place], but the patient was hesitant to go to this place due to the distance from her mom, who is terminally ill with brain cancer. Attempts are currently being made to find hospitals with psychiatric services closer by. The backup plan is a halfway, however this is not the best option of treatment for the patient.
[2018-05-19] MEDS: Mirtazapine 15 MG TAB PO SCH (21:27)
[2018-05-19] MEDS: SODIUM ACETATE IV SCH (23:00)
[2018-05-19] MEDS: [UNRECOGNIZED DRUG - OTHER] IV SCH (23:00)
[2018-05-19] MEDS: POTASSIUM CHLORIDE IV SCH (23:00)
[2018-05-19] MEDS: Melatonin 3 MG TAB PO PRN (23:07)
--- NOTE | 2018-05-20 07:52 | PDOC.FM ---
- Subjective Subjective: Patient doing well this AM. No significant overnight events. Patient denies binging or purging yesterday. - Objective MAR Reviewed: Yes Vital Signs & Weight: Vital Signs (12 hours) Temp Pulse Resp BP BP Pulse Ox 05/20/18 07:20 97.7 F 91 18 105/71 95 05/20/18 04:50 97.8 F 63 16 80/53 L 94 L 05/20/18 00:05 98.2 F 69 16 93/57 L 94 L 05/19/18 21:37 99 F 92 16 95/61 95 05/19/18 20:00 94 L Weight Admit Weight 36.514 kg Weight 33.623 kg I&O: 05/19/18 05/20/18 05/21/18 06:59 06:59 06:59 Intake Total 1560 1500 Balance 1560 1500 Result Diagrams: 05/13/18 11:07 05/19/18 04:16 EKG Reviewed by me: No Radiology Reviewed by me: No <Miri Hammond - Last Filed: 05/20/18 20:14> - Objective Vital Signs & Weight: Vital Signs (12 hours) Temp Pulse Resp BP Pulse Ox 05/23/18 07:23 97.7 F 89 18 97/60 98 05/23/18 03:53 97.9 F 69 16 97/62 97 05/23/18 00:00 97.9 F 68 16 94/59 L 96 Weight Admit Weight 36.514 kg Weight 36.741 kg I&O: 05/22/18 05/23/18 05/24/18 06:59 06:59 06:59 Intake Total 2940 Balance 2940 Result Diagrams: 05/13/18 11:07 05/23/18 03:59 <Sarah Guzmán - Last Filed: 05/23/18 08:21> Phys Exam - Physical Examination Constitutional: NAD cachectic appearing HEENT: moist MMs Neck: supple Respiratory: no wheezing Cardiovascular: RRR Gastrointestinal: soft, no distention Musculoskeletal: no edema, pulses present Neurological: non-focal Psychiatric: normal affect Skin: cap refill <2 seconds <Miri Hammond - Last Filed: 05/20/18 20:14> Dx/Plan (1) Anorexia nervosa with bulimia Code(s): F50.02 - ANOREXIA NERVOSA, BINGE EATING/PURGING TYPE Status: Acute (2) Anxiety Code(s): F41.9 - ANXIETY DISORDER, UNSPECIFIED Status: Acute (3) Depression Code(s): F32.9 - MAJOR DEPRESSIVE DISORDER, SINGLE EPISODE, UNSPECIFIED Status : Acute Qualifiers: Depression Type: major depressive disorder Major depression recurrence: unspecified whether recurrent Active/Remission status: remission status unspecified Qualified Code(s): F32.9 - Major depressive disorder, single episode, unspecified (4) Osteoporosis Code(s): M81.0 - AGE-RELATED OSTEOPOROSIS W/O CURRENT PATHOLOGICAL FRACTURE Status: Acute Qualifiers: Osteoporosis type: unspecified Presence of current pathological fracture: unspecified Qualified Code(s): M81.0 - Age-related osteoporosis without current pathological fracture (5) Vitamin D deficiency Code(s): E55.9 - VITAMIN D DEFICIENCY, UNSPECIFIED Status: Acute (6) HFrEF (heart failure with reduced ejection fraction) Code(s): I50.20 - UNSPECIFIED SYSTOLIC (CONGESTIVE) HEART FAILURE Status: Resolved Qualifiers: Heart failure chronicity: unspecified Qualified Code(s): I50.20 - Unspecified systolic (congestive) heart failure - Plan Plan: Malnutrition 2/2 Anorexia Nervosa/Bulimia -Patient with h/o longstanding anorexia, binging/purging type, but had acute worsening with decline in BMI -Pre-albumin initially low at 14, but has improved to 17 and then to 19 after initiation of TPN. Vit D low. Mag, Phos, B12, INR WNL. Pt has paranoid delusions regarding people trying to secretly inject food into her. Pt has lost weight today from yesterday based on what is recorded, however, there is some discrepancy in how pt being measured. When patient measured standing, her weight was 38 kg rather than 33 kg. Advised nurses to weigh patient standing at all times. - Mirtazapine - Olanzapine - steel roller consulted, appreciate recs - patient was amenable to inpatient treatment at an eating disorder facility in [place]; however, earlier today she stated that she does not want to go at this time as she wants to be around for her mother who has a terminal illness. She would rather go to [facility] with PEG tube in place. She understands fully that [facility] is not a treatment facility and that a PEG tube will not help to keep her disease controlled if she continues to binge and purge, which is what she is likely to do if she does not receive treatment. Patient and family understood at that time and were willing to proceed in hopes that maybe she could transition from [place] to inpatient facility at a different time. A team of physicians including patient's PCP, medicine attending, and psychologist had family meeting with patient around 19:00. At that time they had another honest conversation regarding patient's prognosis should she go to a NH from the hospital and not get the care she so desperately needs from an inpatient eating disorder facility. Through the family discussion, it was decided that inpatient facility was the right way to go. Patient was on board with decision if it was what her terminally ill mother wanted for her. Her mother is in agreement and wants the patient to get the help she needs. Patient has decided to let her brother be her medical power of patent prosecution attorney to assist her in making the best medical decisions possible. Palliative care was present during conversation and is willing to help facilitate the filing of a medical POA. Patient will remain in the hospital until a be opens up at the facility in [place] ([facility]). Patient's brother has been given the number to the facility to ask any questions he may deem necessary prior to her leaving. Patient and patient's brother are fully aware of the fact that patient will have to find her own transportation to the facility and that this will not be covered by the insurance. They are agreeable to doing whatever it takes at this time to get her the treatment she needs. Patient has told me on several occasions today that she wants help and this is the first time that she has actually felt that way. She was a little hesitant of leaving her mother at first, which is understandable, but she agrees currently that this is the best decision. - consulted [facility], no recs for inpatient psych tx - Ensure scheduled BID, Diet ad igl, but limit to one tray per meal, Continue TPN - Consulted ethics committee regarding the need for a sitter and they agreed that it would be appropriate. Discussed the sitter with the patient and informed her that they will watch her eat, use the bathroom, and shower. They will also escort her when she wants to go outside. She agreed that she understood this was necessary, but wasn't happy about it. Sitter at bedside today and states patient did not purge overnight. - Continue TPN - Goal BMI > 13 Non-sustained Ventricular Tachycardia- resolved -4 episodes of 6 or so beats overnight 05/06. -Echo showed EF 35-40%. Stress test NL with normal EF - Appreciate Cardiology recs Left femur fracture- stable -F all in January 2018, was supposed to follow with ortho - Dr. Funez consulted, Rec'd walker, f/u in 6-8 wks - Walking program Osteoporosis - h/o multiple fractures, likely 2/2 chronic malnutrition. Pt with low vit D. - Vit D supplementation Depression - No active SI. - zoloft 100mg BID changed to 100 mg QAM with addition of prozac 20 mg QPM. Intent is to titrate off of zoloft and treat only with prozac as this has been shown to work more effectively in anorexia/bulimia. - mirtazapine Anxiety - Transitioning off zoloft and starting on prozac GERD - continue protonix Code: Full code Dispo: Patient has agreed to inpatient placement at [facility] in [place] after a lengthy family discussion. She has opted to forgo the NH with PEG tube option at this time. Patient will remain in hospital until bed opens in [place]. Patient is having brother sign forms during hospitalization for him to be medical POA to make decisions on her behalf. <Miri Hammond - Last Filed: 05/20/18 20:14> (1) Malnutrition due to starvation Code(s): E46 - UNSPECIFIED PROTEIN-CALORIE MALNUTRITION Status: Acute (2) Anorexia nervosa with bulimia Code(s): F50.02 - ANOREXIA NERVOSA, BINGE EATING/PURGING TYPE Status: Acute (3) Anxiety Code(s): F41.9 - ANXIETY DISORDER, UNSPECIFIED Status: Acute (4) Depression Code(s): F32.9 - MAJOR DEPRESSIVE DISORDER, SINGLE EPISODE, UNSPECIFIED Status : Acute Qualifiers: Depression Type: major depressive disorder Major depression recurrence: unspecified whether recurrent Active/Remission status: remission status unspecified Qualified Code(s): F32.9 - Major depressive disorder, single episode, unspecified (5) Osteoporosis Code(s): M81.0 - AGE-RELATED OSTEOPOROSIS W/O CURRENT PATHOLOGICAL FRACTURE Status: Acute Qualifiers: Osteoporosis type: unspecified Presence of current pathological fracture: unspecified Qualified Code(s): M81.0 - Age-related osteoporosis without current pathological fracture (6) Femur fracture, left Code(s): S72.92XA - UNSP FRACTURE OF LEFT FEMUR, INIT ENCNTR FOR CLOSED FRACTURE Status: Acute Qualifiers: Fracture alignment: nondisplaced <Sarah Guzmán - Last Filed: 05/23/18 08:21> Attending Addendum - Attending Addendum Date/Time: 05/20/182116 I personally evaluated the patient and discussed the management with Dr. Hammond I agree with the History, Examination, Assessment and Plan documented above with any addition or exceptions noted below. 43 yo female with history of severe anorexia, MDD, anxiety admitted for severe malnutrition and bradycardia HD# 15 Patient still purging. Continue to discuss replacing habit with journaling or going for a walk. Family meeting with percolator operator present. Treatment options discussed. Family and patient agree to inpatient treatment facility. Agree long-term placement or home would not benefit patient. Patient and family both admit their mother wants Jose in a treatment facility to help her. Awaiting placement. Will follow up with Carolyn on Wednesday. Brother to sign medical POA paperwork on Wednesday. ABrayMD <Sarah Guzmán - Last Filed: 05/23/18 08:21>
[2018-05-20] MEDS: OLANZapine 5 MG TAB PO SCH (09:18)
[2018-05-20] MEDS: Gabapentin 300 MG CAP PO SCH ×3 (09:18→23:00)
[2018-05-20] MEDS: Enoxaparin Sodium 40 MG/0.4 ML SYRINGE SC SCH (09:19)
[2018-05-20] MEDS: Mirtazapine 15 MG TAB PO SCH (23:00)
[2018-05-20] MEDS: FLUoxetine HCl 20 MG CAP PO SCH (23:00)
[2018-05-20] MEDS: [UNRECOGNIZED DRUG - OTHER] IV SCH (23:01)
[2018-05-20] MEDS: SODIUM ACETATE IV SCH (23:01)
[2018-05-20] MEDS: POTASSIUM CHLORIDE IV SCH (23:01)
[2018-05-21] MEDS: Melatonin 3 MG TAB PO PRN (00:41)
[2018-05-21] MEDS: OLANZapine 5 MG TAB PO SCH (09:11)
[2018-05-21] MEDS: Gabapentin 300 MG CAP PO SCH ×3 (09:11→20:54)
[2018-05-21] MEDS: Enoxaparin Sodium 40 MG/0.4 ML SYRINGE SC SCH (09:12)
--- NOTE | 2018-05-21 10:06 | PDOC.FM ---
- Subjective Subjective: Patient doing well this AM. She did endorse an episode of emesis last night. Patient states she has been going downstairs to visit with her mother. - Objective MAR Reviewed: Yes Vital Signs & Weight: Vital Signs (12 hours) Temp Pulse Resp BP BP Pulse Ox 05/21/18 07:15 98.1 F 74 16 100/64 96 05/21/18 00:51 97.9 F 70 16 90/52 L 94 L Weight Admit Weight 36.514 kg Weight 36.741 kg I&O: 05/20/18 05/21/18 05/22/18 06:59 06:59 05:59 Intake Total 1500 3850 Balance 1500 3850 Result Diagrams: 05/13/18 11:07 05/19/18 04:16 EKG Reviewed by me: No Radiology Reviewed by me: No <Miri Hammond - Last Filed: 05/21/18 12:38> - Objective Vital Signs & Weight: Vital Signs (12 hours) Temp Pulse Resp BP Pulse Ox 05/23/18 07:23 97.7 F 89 18 97/60 98 05/23/18 03:53 97.9 F 69 16 97/62 97 05/23/18 00:00 97.9 F 68 16 94/59 L 96 Weight Admit Weight 36.514 kg Weight 36.741 kg I&O: 05/22/18 05/23/18 05/24/18 06:59 06:59 06:59 Intake Total 2940 Balance 2940 Result Diagrams: 05/13/18 11:07 05/23/18 03:59 <Sarah Guzmán - Last Filed: 05/23/18 08:24> Phys Exam - Physical Examination Constitutional: NAD cachectic appearing HEENT: moist MMs Neck: supple Respiratory: clear to auscultation bilateral Cardiovascular: RRR Gastrointestinal: soft Musculoskeletal: no edema Neurological: non-focal Psychiatric: normal affect, A&O x 3 Skin: no rash, cap refill <2 seconds <Miri Hammond - Last Filed: 05/21/18 12:38> Dx/Plan (1) Anorexia nervosa with bulimia Code(s): F50.02 - ANOREXIA NERVOSA, BINGE EATING/PURGING TYPE Status: Acute (2) Anxiety Code(s): F41.9 - ANXIETY DISORDER, UNSPECIFIED Status: Acute (3) Depression Code(s): F32.9 - MAJOR DEPRESSIVE DISORDER, SINGLE EPISODE, UNSPECIFIED Status : Acute Qualifiers: Depression Type: major depressive disorder Major depression recurrence: unspecified whether recurrent Active/Remission status: remission status unspecified Qualified Code(s): F32.9 - Major depressive disorder, single episode, unspecified (4) Osteoporosis Code(s): M81.0 - AGE-RELATED OSTEOPOROSIS W/O CURRENT PATHOLOGICAL FRACTURE Status: Acute Qualifiers: Osteoporosis type: unspecified Presence of current pathological fracture: unspecified Qualified Code(s): M81.0 - Age-related osteoporosis without current pathological fracture (5) Vitamin D deficiency Code(s): E55.9 - VITAMIN D DEFICIENCY, UNSPECIFIED Status: Acute (6) HFrEF (heart failure with reduced ejection fraction) Code(s): I50.20 - UNSPECIFIED SYSTOLIC (CONGESTIVE) HEART FAILURE Status: Resolved Qualifiers: Heart failure chronicity: unspecified Qualified Code(s): I50.20 - Unspecified systolic (congestive) heart failure - Plan Plan: Malnutrition 2/2 Anorexia Nervosa -Patient with h/o longstanding anorexia, binging/purging type, but had acute worsening with decline in BMI -Pre-albumin improved after initiation of TPN. Vit D low. Mag, Phos, B12, INR WNL. -Weight downto 36.7 kg today from 38 kg yesterday; both standing weights, so presumed accurate. Patient did endorse vomiting after every meal yesterday. - Mirtazapine - Olanzapine - spider assembler consulted, appreciate recs - plan is for placement at [facility] in [place]. Patient and patient's family are agreeable at this time. Plan is to have patient and her brother sign MPOA at some point today, so that her brother can facilitate her medical care. Patient has been accepted to facility but is awaiting a bed. She will remain in our care until a bed opens up. - please see prior note for more info. - Ensure scheduled BID, Diet ad gil, but limit to one tray per meal, Continue TPN - Sitter at all times - Continue TPN - Goal BMI > 13; current BMI 11 Non-sustained Ventricular Tachycardia- resolved - 4 episodes of 6 or so beats overnight 05/06. - Echo showed EF 35-40%. Stress test NL with normal EF - Appreciate Cardiology recs Left femur fracture- stable - Fall in January 2018, was supposed to follow with ortho - Dr. Armin clark, Rec'd twyla, f/u in 6-8 wks - Walking program Osteoporosis - h/o multiple fractures, likely 2/2 chronic malnutrition. Pt with low vit D. - Vit D supplementation Depression - No active SI. - zoloft 100mg BID changed to 100 mg QAM with addition of prozac 20 mg QPM. Intent is to titrate off of zoloft and treat only with prozac as this has been shown to work more effectively in anorexia/bulimia. - mirtazapine Anxiety - Transitioning off zoloft and starting on prozac GERD - continue protonix Code: Full code Dispo: Patient has agreed to inpatient placement at [facility] in [place] after a lengthy family discussion. She has opted to forgo the NV with PEG tube option at this time. Patient will remain in hospital until bed opens in [place]. Patient is having brother sign forms during hospitalization for him to be medical POA to make decisions on her behalf. <Miri Hammond - Last Filed: 05/21/18 12:38> (1) Malnutrition due to starvation Code(s): E46 - UNSPECIFIED PROTEIN-CALORIE MALNUTRITION Status: Acute (2) Anorexia nervosa with bulimia Code(s): F50.02 - ANOREXIA NERVOSA, BINGE EATING/PURGING TYPE Status: Acute (3) Anxiety Code(s): F41.9 - ANXIETY DISORDER, UNSPECIFIED Status: Acute (4) Depression Code(s): F32.9 - MAJOR DEPRESSIVE DISORDER, SINGLE EPISODE, UNSPECIFIED Status : Acute Qualifiers: Depression Type: major depressive disorder Major depression recurrence: unspecified whether recurrent Active/Remission status: remission status unspecified Qualified Code(s): F32.9 - Major depressive disorder, single episode, unspecified (5) Osteoporosis Code(s): M81.0 - AGE-RELATED OSTEOPOROSIS W/O CURRENT PATHOLOGICAL FRACTURE Status: Acute Qualifiers: Osteoporosis type: unspecified Presence of current pathological fracture: unspecified Qualified Code(s): M81.0 - Age-related osteoporosis without current pathological fracture (6) Femur fracture, left Code(s): S72.92XA - UNSP FRACTURE OF LEFT FEMUR, INIT ENCNTR FOR CLOSED FRACTURE Status: Acute Qualifiers: Fracture alignment: nondisplaced <Sarah Guzmán - Last Filed: 05/23/18 08:24> Attending Addendum - Attending Addendum Date/Time: 05/21/18821 I personally evaluated the patient and discussed the management with Dr. Hammond I agree with the History, Examination, Assessment and Plan documented above with any addition or exceptions noted below. 43 yo female with history of severe anorexia, MDD, anxiety admitted for severe malnutrition and bradycardia HD# 16 Patient still purging. Continue to discuss replacing habit with journaling or going for a walk. Patient states she will start journaling to help try to prevent purging. Titrating down Zoloft and up titrating Prozac. Family meeting on 05/20/18 with registered nurse float pool. Patient and family both admit their mother wants Jose in a treatment facility to help her. Awaiting placement. Will follow up with [place] on Wednesday. Brother to sign medical POA paperwork on Wednesday. ABrayMD <Sarah Guzmán - Last Filed: 05/23/18 08:24>
[2018-05-21] MEDS: Acetaminophen 325 MG TAB PO PRN (11:58)
--- NOTE | 2018-05-21 16:26 | PDOC.EVN ---
Event Note - Event Note Event Note: 05/21/2018 15:30 Called palliative care earlier this morning regarding MPOA. Downloaded form from [facility] and placed in patient's chart. No notary available on the weekend. Spoke with patient's brother who will be MPOA. Plans in place to fill out and sign form on Wednesday. Called Nelda, the contact at [facility] in [place] and left message requesting she call me back as I would like to provide patient with information about the treatment program, as well as provide her with other useful information to help her with the transition to [place]. After speaking with patient this AM, patient informed us that one thing she enjoys doing as an outlet is journaling. We have provided her with a journal and pens to assist her in finding other ways to cope. We have asked that she attempt to journal anytime she feels the desire to purge. Patient was very thankful for the journal and informed me that she would do her best to utilize journaling as an outlet. We have agreed upon starting with at least one meal each day where patient journals instead of purges. Miri Hammond, DO PGY-2
[2018-05-21] MEDS: Mirtazapine 15 MG TAB PO SCH (20:54)
[2018-05-21] MEDS: FLUoxetine HCl 20 MG CAP PO SCH (20:54)
[2018-05-21] MEDS: POTASSIUM CHLORIDE IV SCH (23:40)
[2018-05-21] MEDS: SODIUM ACETATE IV SCH (23:40)
[2018-05-21] MEDS: [UNRECOGNIZED DRUG - OTHER] IV SCH (23:40)
[2018-05-22] MEDS: Melatonin 3 MG TAB PO PRN ×2 (02:55→23:07)
[2018-05-22] MEDS: OLANZapine 5 MG TAB PO SCH (08:35)
[2018-05-22] MEDS: Gabapentin 300 MG CAP PO SCH ×3 (08:35→21:18)
[2018-05-22] MEDS: Enoxaparin Sodium 40 MG/0.4 ML SYRINGE SC SCH (08:36)
--- NOTE | 2018-05-22 09:48 | PDOC.FM ---
- Subjective Subjective: Patient is doing well this morning. She states that she has not had any purging episodes this morning. She expressed some frustration in ordering meals from the cafeteria. Other than that she has no complaints. - Objective MAR Reviewed: Yes Vital Signs & Weight: Vital Signs (12 hours) Temp Pulse Resp BP BP Pulse Ox 05/22/18 07:21 98.2 F 76 16 88/57 L 97 05/22/18 04:00 98 F 71 16 87/57 L 96 05/22/18 00:00 97.6 F 81 16 85/57 L 95 Weight Admit Weight 36.514 kg Weight 38.555 kg I&O: 05/21/18 05/22/18 05/23/18 07:59 06:59 06:59 Intake Total Balance Result Diagrams: 05/13/18 11:07 05/19/18 04:16 <Beverley Bowie - Last Filed: 05/22/18 13:50> - Objective Vital Signs & Weight: Vital Signs (12 hours) Temp Pulse Resp BP BP Pulse Ox 05/22/18 07:21 98.2 F 76 16 88/57 L 97 05/22/18 04:00 98 F 71 16 87/57 L 96 05/22/18 00:00 97.6 F 81 16 85/57 L 95 Weight Admit Weight 36.514 kg Weight 38.555 kg I&O: 05/21/18 05/22/18 05/23/18 07:59 06:59 06:59 Intake Total Balance Result Diagrams: 05/13/18 11:07 05/23/18 03:59 <Sarah Guzmán - Last Filed: 05/23/18 08:28> Phys Exam - Physical Examination Constitutional: NAD Respiratory: clear to auscultation bilateral Cardiovascular: RRR, no significant murmur Gastrointestinal: soft, non-tender Psychiatric: A&O x 3 <Beverley Bowie - Last Filed: 05/22/18 13:50> Dx/Plan (1) Anorexia nervosa with bulimia Code(s): F50.02 - ANOREXIA NERVOSA, BINGE EATING/PURGING TYPE Status: Acute (2) Anxiety Code(s): F41.9 - ANXIETY DISORDER, UNSPECIFIED Status: Acute (3) Depression Code(s): F32.9 - MAJOR DEPRESSIVE DISORDER, SINGLE EPISODE, UNSPECIFIED Status : Acute Qualifiers: Depression Type: major depressive disorder Major depression recurrence: unspecified whether recurrent Active/Remission status: remission status unspecified Qualified Code(s): F32.9 - Major depressive disorder, single episode, unspecified (4) Femur fracture, left Code(s): S72.92XA - UNSP FRACTURE OF LEFT FEMUR, INIT ENCNTR FOR CLOSED FRACTURE Status: Acute Qualifiers: Fracture alignment: nondisplaced (5) Malnutrition due to starvation Code(s): E46 - UNSPECIFIED PROTEIN-CALORIE MALNUTRITION Status: Acute (6) Osteoporosis Code(s): M81.0 - AGE-RELATED OSTEOPOROSIS W/O CURRENT PATHOLOGICAL FRACTURE Status: Acute Qualifiers: Osteoporosis type: unspecified Presence of current pathological fracture: unspecified Qualified Code(s): M81.0 - Age-related osteoporosis without current pathological fracture (7) Vitamin D deficiency Code(s): E55.9 - VITAMIN D DEFICIENCY, UNSPECIFIED Status: Acute (8) HFrEF (heart failure with reduced ejection fraction) Code(s): I50.20 - UNSPECIFIED SYSTOLIC (CONGESTIVE) HEART FAILURE Status: Resolved Qualifiers: Heart failure chronicity: unspecified Qualified Code(s): I50.20 - Unspecified systolic (congestive) heart failure - Plan Plan: Malnutrition 2/2 Anorexia -Patient with h/o longstanding anorexia, binging/purging type, but had acute worsening with decline in BMI weight today 38 kg (increased from 2kg) - Mirtazapine - Olanzapine - compacting machine operator/tender consulted, appreciate recs - plan is for placement at [facility] in [place]. Patient and patient's family are agreeable at this time. - -Plan is to have patient and her brother sign MPOA at some point today, so that her brother can facilitate her medical care. Patient has been accepted to facility but is awaiting a bed. She will remain in our care until a bed opens up. - Continue TPN - pt encouraged to journal after one meal per day to replace purging as a means of relieving stress. Pt is agreeable to plan. Left femur fracture- stable - Fall in January 2018, was supposed to follow with ortho - Dr. Funez consulted, Rec'd twyla, f/u in 6-8 wks - Walking program Osteoporosis - h/o multiple fractures, likely 2/2 chronic malnutrition. Pt with low vit D. - Vit D supplementation Depression - No active SI. -Continue weaning off zoloft and transitioning to prozac. - mirtazapine Anxiety - as above. GERD - continue protonix <Beverley Bowie - Last Filed: 05/22/18 13:50> (1) Malnutrition due to starvation Code(s): E46 - UNSPECIFIED PROTEIN-CALORIE MALNUTRITION Status: Acute (2) Anorexia nervosa with bulimia Code(s): F50.02 - ANOREXIA NERVOSA, BINGE EATING/PURGING TYPE Status: Acute (3) Anxiety Code(s): F41.9 - ANXIETY DISORDER, UNSPECIFIED Status: Acute (4) Depression Code(s): F32.9 - MAJOR DEPRESSIVE DISORDER, SINGLE EPISODE, UNSPECIFIED Status : Acute Qualifiers: Depression Type: major depressive disorder Major depression recurrence: unspecified whether recurrent Active/Remission status: remission status unspecified Qualified Code(s): F32.9 - Major depressive disorder, single episode, unspecified (5) Osteoporosis Code(s): M81.0 - AGE-RELATED OSTEOPOROSIS W/O CURRENT PATHOLOGICAL FRACTURE Status: Acute Qualifiers: Osteoporosis type: unspecified Presence of current pathological fracture: unspecified Qualified Code(s): M81.0 - Age-related osteoporosis without current pathological fracture (6) Femur fracture, left Code(s): S72.92XA - UNSP FRACTURE OF LEFT FEMUR, INIT ENCNTR FOR CLOSED FRACTURE Status: Acute Qualifiers: Fracture alignment: nondisplaced <Sarah Guzmán - Last Filed: 05/23/18 08:28> Attending Addendum - Attending Addendum Date/Time: 05/22/18 0948 I personally evaluated the patient and discussed the management with Dr. Bowie I agree with the History, Examination, Assessment and Plan documented above with any addition or exceptions noted below. 43 yo female with history of severe anorexia, MDD, anxiety admitted for severe malnutrition and bradycardia HD# 17 Patient reports not purging at breakfast yesterday. Did purge after other meals. Continue to encourage journaling and walking. Discussed outside garden. Once patient on Prozac will need to take away large trash can out of room. Titrating down Zoloft and up titrating Prozac. Family meeting on 05/20/18 with car porter. Patient and family both admit their mother wants Jose in a treatment facility to help her. Awaiting placement. Will follow up with [facility] on Wednesday. Brother to sign medical POA paperwork on Wednesday. ABrKiran <Sarah Guzmán - Last Filed: 05/23/18 08:28>
[2018-05-22] MEDS: Acetaminophen 325 MG TAB PO PRN (17:14)
[2018-05-22] MEDS: Mirtazapine 15 MG TAB PO SCH (21:17)
[2018-05-22] MEDS: FLUoxetine HCl 20 MG CAP PO SCH (21:18)
[2018-05-22] MEDS: SODIUM ACETATE IV SCH (23:07)
[2018-05-22] MEDS: POTASSIUM CHLORIDE IV SCH (23:07)
[2018-05-22] MEDS: [UNRECOGNIZED DRUG - OTHER] IV SCH (23:07)
[2018-05-23 05:13] LABS: ALT (SGPT) 17 U/L (8-55); AST (SGOT) 26 U/L (5-34); Albumin 3.6 g/dL (3.5-5.0); Alkaline Phosphatase 95 U/L (40-150); Anion Gap 11 mmol/L (10-20); BUN (Urea Nitrogen) 19 mg/dL (7.0-18.7); Bilirubin, Total Less than 0.2 mg/dL (0.2-1.2); Calc. Creatinine Clearance 68 mL/min (70-130); Calcium 9.2 mg/dL (7.8-10.44); Carbon Dioxide 31 mmol/L (22-29); Chloride 108 mmol/L (98-107); Estimated GFR-MDRD Greater than 90; Globulin 2.7 g/dL (2.4-3.5); Glucose 93 mg/dL (70-105); Potassium 4.4 mmol/L (3.5-5.1); Protein, Total 6.3 g/dL (6.0-8.3); Sodium 146 mmol/L (136-145)
--- NOTE | 2018-05-23 08:12 | PDOC.FM ---
- Subjective Subjective: Patient reports she is doing well this am. She continues to binge/purge per nursing notes. Plans to go to inpatient facility in [place]. Today reports no pain, SOB, difficulty with urination, or MCKEON. - Objective MAR Reviewed: Yes Vital Signs & Weight: Vital Signs (12 hours) Temp Pulse Resp BP Pulse Ox 05/23/18 07:23 97.7 F 89 18 97/60 98 05/23/18 03:53 97.9 F 69 16 97/62 97 05/23/18 00:00 97.9 F 68 16 94/59 L 96 Weight Admit Weight 36.514 kg Weight 36.741 kg I&O: 05/22/18 05/23/18 05/24/18 06:59 06:59 06:59 Intake Total 2940 Balance 2940 Result Diagrams: 05/13/18 11:07 05/23/18 03:59 <Alethea Jeter - Last Filed: 05/23/18 18:27> - Objective Vital Signs & Weight: Vital Signs (12 hours) Temp Pulse Resp BP BP Pulse Ox 05/23/18 19:58 97.6 F 85 20 88/56 L 100 05/23/18 16:00 98.7 F 92 16 92/54 L 95 05/23/18 11:24 98.8 F 86 18 87/60 L 96 Weight Admit Weight 36.514 kg Weight 36.741 kg I&O: 05/22/18 05/23/18 05/24/18 06:59 06:59 06:59 Intake Total 2940 1620 Balance 2940 1620 Result Diagrams: 05/13/18 11:07 05/23/18 03:59 <Don Lu - Last Filed: 05/23/18 20:50> Phys Exam - Physical Examination Constitutional: NAD chacectic and malnourished HEENT: moist MMs Respiratory: no wheezing, no rales, clear to auscultation bilateral Cardiovascular: RRR Musculoskeletal: no edema, pulses present Neurological: moves all 4 limbs Psychiatric: A&O x 3 <Alethea Jeter - Last Filed: 05/23/18 18:27> Dx/Plan (1) Malnutrition due to starvation Code(s): E46 - UNSPECIFIED PROTEIN-CALORIE MALNUTRITION Status: Acute (2) Anorexia nervosa with bulimia Code(s): F50.02 - ANOREXIA NERVOSA, BINGE EATING/PURGING TYPE Status: Acute (3) Anxiety Code(s): F41.9 - ANXIETY DISORDER, UNSPECIFIED Status: Acute (4) Depression Code(s): F32.9 - MAJOR DEPRESSIVE DISORDER, SINGLE EPISODE, UNSPECIFIED Status : Acute Qualifiers: Depression Type: major depressive disorder Major depression recurrence: unspecified whether recurrent Active/Remission status: remission status unspecified Qualified Code(s): F32.9 - Major depressive disorder, single episode, unspecified (5) Femur fracture, left Code(s): S72.92XA - UNSP FRACTURE OF LEFT FEMUR, INIT ENCNTR FOR CLOSED FRACTURE Status: Acute Qualifiers: Fracture alignment: nondisplaced (6) Osteoporosis Code(s): M81.0 - AGE-RELATED OSTEOPOROSIS W/O CURRENT PATHOLOGICAL FRACTURE Status: Acute Qualifiers: Osteoporosis type: unspecified Presence of current pathological fracture: unspecified Qualified Code(s): M81.0 - Age-related osteoporosis without current pathological fracture (7) Vitamin D deficiency Code(s): E55.9 - VITAMIN D DEFICIENCY, UNSPECIFIED Status: Acute (8) HFrEF (heart failure with reduced ejection fraction) Code(s): I50.20 - UNSPECIFIED SYSTOLIC (CONGESTIVE) HEART FAILURE Status: Resolved Qualifiers: Heart failure chronicity: unspecified Qualified Code(s): I50.20 - Unspecified systolic (congestive) heart failure - Plan Plan: Malnutrition 2/2 Anorexia -Patient with h/o longstanding anorexia, binging/purging type, but had acute worsening with decline in BMI - weight today 36kg, stable from admission - Mirtazapine 15mg - Olanzapine - sales and business development manager consulted, appreciate recs - plan is for placement at [facility] in [place]. Patient and patient's family are agreeable at this time. - -Plan is to have patient and her brother sign MPOA at some point today, so that her brother can facilitate her medical care. Patient has been accepted to facility but is awaiting a bed. She will remain in our care until a bed opens up. - Continue TPN - pt encouraged to journal after one meal per day to replace purging as a means of relieving stress. Pt is agreeable to plan. Left femur fracture- stable - Fall in January 2018, was supposed to follow with ortho - Dr. Funez consulted, Rec'd walker, f/u in 6-8 wks - Walking program Osteoporosis - h/o multiple fractures, likely 2/2 chronic malnutrition. Pt with low vit D. - Vit D supplementation Depression - No active SI. -Continue weaning off zoloft and transitioning to prozac. - mirtazapine. Anxiety - as above. GERD - continue protonix DVT PPx: lovenox IVF: TPN Code status: Full dispo: pending bed availability at [facility] in [place]. Discuss with CM and brother today. <Alethea Jeter - Last Filed: 05/23/18 18:27> Attending Addendum - Attending Addendum Date/Time: 05/23/182040 I personally evaluated the patient and discussed the management with Dr. Jeter. I agree with and repeated the History, Examination, Assessment and Plan documented above with any addition or exceptions noted below. Pt acknowledges purging behavior. Says she journaled instead of purged yesterday at breakfast and denies purging today. Journal without bookmark moved from middle. She purges into the trashcan, or, "wherever" she can. The nurse reported that she called down to the cafeteria impersonating a nurse in order to obtain a second tray this AM. Unfortunately a complicated case, severe and enduring eating disorder (SEED), anorexia with BE/P in the setting of borderline personality disorder, MDD, who has very poor insight into her illness. We are obtaining POA for the brother today. I called the above center and spoke with Nelda, the service center coordinator , and they are unable to consider her for acceptance until the , when their hospital medical assistant returns from vacation. They do not take TPN, and the patient has been refusing fats for TPN (which she tells me she never did). Overall I think her prognosis is poor, and her prognosis outside of an eating disorder center is dismal. If we have POA we may consider transitioning to tube feeds. <Don Lu - Last Filed: 05/23/18 20:50>
[2018-05-23] MEDS: OLANZapine 5 MG TAB PO SCH (11:11)
[2018-05-23] MEDS: Gabapentin 300 MG CAP PO SCH ×3 (11:11→22:22)
[2018-05-23] MEDS: Enoxaparin Sodium 40 MG/0.4 ML SYRINGE SC SCH (11:13)
[2018-05-23] MEDS ORDERED: [UNRECOGNIZED DRUG - OTHER] IV SCH (22:00)
[2018-05-23] MEDS ORDERED: SODIUM ACETATE IV SCH (22:00)
[2018-05-23] MEDS ORDERED: POTASSIUM CHLORIDE IV SCH (22:00)
[2018-05-23] MEDS: CALCIUM GLUCONATE IV SCH (22:21)
[2018-05-23] MEDS: POTASSIUM PHOSPHATE IV SCH (22:21)
[2018-05-23] MEDS: Mirtazapine 15 MG TAB PO SCH (22:21)
[2018-05-23] MEDS: POTASSIUM CHLORIDE IV SCH ×2 (22:21→22:49)
[2018-05-23] MEDS: [UNRECOGNIZED DRUG - OTHER] IV SCH (22:21)
[2018-05-23] MEDS: FLUoxetine HCl 20 MG CAP PO SCH (22:22)
[2018-05-23] MEDS: Melatonin 3 MG TAB PO PRN (22:22)
[2018-05-23] MEDS: [UNRECOGNIZED DRUG - OTHER] IV SCH (22:49)
[2018-05-23] MEDS: SODIUM ACETATE IV SCH (22:49)
--- NOTE | 2018-05-24 05:25 | PDOC.FM ---
- Subjective Subjective: Patient is out smoking on first attempt to see her. She is seen in her room and reports frustration with her situation. She reports purging 2/3 meals yesterday but cannot give specifics. She is confronted about manipulative behaviors. Sitter at bedside reports purging breakfast meal in the bathroom. She has no complaints. - Objective MAR Reviewed: Yes Vital Signs & Weight: Vital Signs (12 hours) Temp Pulse Resp BP Pulse Ox 05/24/18 04:00 97.9 F 64 20 92/53 L 95 05/24/18 00:00 97.9 F 71 20 92/64 96 05/23/18 19:58 97.6 F 85 20 88/56 L 100 05/23/18 19:46 100 Weight Admit Weight 36.514 kg Weight 36.741 kg I&O: 05/22/18 05/23/18 05/24/18 06:59 06:59 06:59 Intake Total 2940 1620 Balance 2940 1620 Result Diagrams: 05/13/18 11:07 05/23/18 03:59 <Alethea Jeter - Last Filed: 05/24/18 14:38> - Objective Vital Signs & Weight: Vital Signs (12 hours) Temp Pulse Resp BP BP Pulse Ox 05/24/18 16:07 98.5 F 79 16 92/60 97 05/24/18 12:35 97/61 05/24/18 11:30 98.5 F 79 16 81/43 L 96 05/24/18 08:00 98.6 F 92 14 94/53 L 95 Weight Admit Weight 36.514 kg Weight 38.555 kg I&O: 05/23/18 05/24/18 05/25/18 06:59 06:59 06:59 Intake Total 2940 3160 Balance 2940 3160 Result Diagrams: 05/13/18 11:07 05/23/18 03:59 <Don Lu - Last Filed: 05/24/18 17:02> Phys Exam - Physical Examination Constitutional: NAD chacectic no respiratory distress, equal chest rise Cardiovascular: RRR Neurological: moves all 4 limbs Deviation from normal: blunted affect, manipulative behavior, depressed mood, good eye contact <Alethea Jeter - Last Filed: 05/24/18 14:38> Dx/Plan (1) Malnutrition due to starvation Code(s): E46 - UNSPECIFIED PROTEIN-CALORIE MALNUTRITION Status: Acute (2) Anorexia nervosa with bulimia Code(s): F50.02 - ANOREXIA NERVOSA, BINGE EATING/PURGING TYPE Status: Acute (3) Anxiety Code(s): F41.9 - ANXIETY DISORDER, UNSPECIFIED Status: Acute (4) Depression Code(s): F32.9 - MAJOR DEPRESSIVE DISORDER, SINGLE EPISODE, UNSPECIFIED Status : Acute Qualifiers: Depression Type: major depressive disorder Major depression recurrence: unspecified whether recurrent Active/Remission status: remission status unspecified Qualified Code(s): F32.9 - Major depressive disorder, single episode, unspecified (5) Femur fracture, left Code(s): S72.92XA - UNSP FRACTURE OF LEFT FEMUR, INIT ENCNTR FOR CLOSED FRACTURE Status: Acute Qualifiers: Fracture alignment: nondisplaced (6) Osteoporosis Code(s): M81.0 - AGE-RELATED OSTEOPOROSIS W/O CURRENT PATHOLOGICAL FRACTURE Status: Acute Qualifiers: Osteoporosis type: unspecified Presence of current pathological fracture: unspecified Qualified Code(s): M81.0 - Age-related osteoporosis without current pathological fracture (7) Vitamin D deficiency Code(s): E55.9 - VITAMIN D DEFICIENCY, UNSPECIFIED Status: Acute (8) HFrEF (heart failure with reduced ejection fraction) Code(s): I50.20 - UNSPECIFIED SYSTOLIC (CONGESTIVE) HEART FAILURE Status: Resolved Qualifiers: Heart failure chronicity: unspecified Qualified Code(s): I50.20 - Unspecified systolic (congestive) heart failure - Plan Plan: Malnutrition 2/2 Anorexia -Patient with h/o longstanding anorexia, binging/purging type, but had acute worsening with decline in BMI - weight today 36kg, stable from admission - Mirtazapine 15mg - Olanzapine - vp data consulted, appreciate recs - plan is for placement at [facility] in [place]. Patient and patient's family are agreeable at this time. - Brother is now MPOA and can help facilitate her medical care. He is agreeable to placing more restrictions to improve her behavior and overall health. - Continue TPN and consider tube feeds - pt encouraged to journal after one meal per day to replace purging as a means of relieving stress. Pt is agreeable to plan although cannot decide if she is being honest about the completion of this task. Left femur fracture- stable - Fall in January 2018, was supposed to follow with ortho - Dr. Funez consulted, Rec'd walker, f/u in 6-8 wks - Walking program Osteoporosis - h/o multiple fractures, likely 2/2 chronic malnutrition. Pt with low vit D. - Vit D supplementation Depression - No active SI. -Continue weaning off zoloft and transitioning to prozac. D/c zoloft 05/27 - mirtazapine. Anxiety - as above. GERD - continue protonix DVT PPx: lovenox IVF: TPN Code status: Full dispo: pending bed availability at [facility] in [place]. Discuss with CM and brother today. <Alethea Jeter - Last Filed: 05/24/18 14:38> Attending Addendum - Attending Addendum Date/Time: 05/24/18 5584 I personally evaluated the patient and discussed the management with Dr. Jeter. I agree with and repeated the History, Examination, Assessment and Plan documented above with any addition or exceptions noted below. Pt with continued purging and very evasive concerning her purging behaviors. POA signed. Will add lipids. Will plan on removal of trashcan and more restrictive behaviors. Ideally she would be able to transition off of TPN, to minimize infectious risk, and onto PO only, including an option for tube feeds. She has no diagnosed gastroparesis, and again would prefer her to be off TPN. Consider reglan 2.5 mg q6h to help prevent the ability to purge. I believe her HR is artificially elevated by her diet soda intake and tobacco use. Her BP is marginal and I suspect would be + on orthostatics. Will order daily. CM consulted for swing bed in [place] on their own. Since Ms. Raza is our patient I presume my partner, Dr. Simmons, would assume her care. I will consult with her. I am uncomfortable with a swing bed stay due to less supervision and structure. She may survive the short time there, but I worry that she will decompensate while there and be unable to be transported to [place]. I also need to confirm how they would want her transported out of our community hospital. We unfortunately have very limited options for Ms. Raza. She is a tragic and prolonged case with apparently no inpatient stay at an ED facility, just at [facility]. She has significant medical and psychiatric comorbidities and a limited number of options. <Don Lu - Last Filed: 05/24/18 17:02>
[2018-05-24] MEDS: Enoxaparin Sodium 40 MG/0.4 ML SYRINGE SC SCH (09:03)
[2018-05-24] MEDS: OLANZapine 5 MG TAB PO SCH (09:04)
[2018-05-24] MEDS: Gabapentin 300 MG CAP PO SCH ×3 (09:04→20:35)
[2018-05-24] MEDS: Mirtazapine 15 MG TAB PO SCH (20:35)
[2018-05-24] MEDS: FLUoxetine HCl 20 MG CAP PO SCH (20:35)
[2018-05-24] MEDS: [UNRECOGNIZED DRUG - OTHER] IV SCH (22:20)
[2018-05-24] MEDS: POTASSIUM CHLORIDE IV SCH (22:20)
[2018-05-24] MEDS: CALCIUM GLUCONATE IV SCH (22:20)
[2018-05-24] MEDS: POTASSIUM PHOSPHATE IV SCH (22:20)
[2018-05-25 05:01] LABS: Hemoglobin 10.9 g/dL (12.0-16.0); Mean Corpuscular HGB CONC 31.2 g/dL (32.0-36.0); Mean Corpuscular Volume 96.2 fL (78.0-98.0); Mean Platelet Volume 11.7 fL (7.4-10.4); Platelet Count 124 thou/uL (130-400); RBC Distribution Width 13.4 % (11.5-14.5); Red Blood Cell (RBC) Count 3.65 mill/uL (4.20-5.40)
[2018-05-25 05:20] LABS: ALT (SGPT) 17 U/L (8-55); AST (SGOT) 28 U/L (5-34); Albumin 3.6 g/dL (3.5-5.0); Alkaline Phosphatase 98 U/L (40-150); Anion Gap 11 mmol/L (10-20); BUN (Urea Nitrogen) 18 mg/dL (7.0-18.7); Bilirubin, Total 0.2 mg/dL (0.2-1.2); Calc. Creatinine Clearance 65 mL/min (70-130); Calcium 9.1 mg/dL (7.8-10.44); Carbon Dioxide 29 mmol/L (22-29); Chloride 105 mmol/L (98-107); Estimated GFR-MDRD Greater than 90; Globulin 2.8 g/dL (2.4-3.5); Glucose 99 mg/dL (70-105); Magnesium 2.1 mg/dL (1.6-2.6); Phosphorus 4.5 mg/dL (2.3-4.7); Potassium 4.1 mmol/L (3.5-5.1); Protein, Total 6.4 g/dL (6.0-8.3); Sodium 141 mmol/L (136-145)
--- NOTE | 2018-05-25 08:18 | PDOC.FM ---
- Subjective Subjective: Patient is her usual self. Reports 2/3 purging episodes yesterday. No manipulative behaviors documented by nursing staff yesterday. She reports feeling ready to give up and has minimal motivation. - Objective MAR Reviewed: Yes Vital Signs & Weight: Vital Signs (12 hours) Temp Pulse Resp BP Pulse Ox 05/25/18 07:08 97.9 F 74 16 92/61 97 Weight Admit Weight 36.514 kg Weight 38.555 kg I&O: 05/24/18 05/25/18 05/26/18 06:59 06:59 06:59 Intake Total 3160 3870 Balance 3160 3870 Result Diagrams: 05/25/18 04:37 05/25/18 04:37 <Alethea Jeter - Last Filed: 05/25/18 13:46> - Objective Vital Signs & Weight: Vital Signs (12 hours) Temp Pulse Resp BP BP BP BP 05/25/18 11:36 98.0 F 74 16 101/67 05/25/18 08:00 111/74 92/67 114/80 05/25/18 07:08 97.9 F 74 16 92/61 Pulse Ox 05/25/18 11:36 97 05/25/18 08:00 97 05/25/18 07:08 97 Weight Admit Weight 36.514 kg Weight 39.463 kg I&O: 05/24/18 05/25/18 05/26/18 06:59 06:59 06:59 Intake Total 3160 3870 Balance 3160 3870 Result Diagrams: 05/25/18 04:37 05/25/18 04:37 <Don Lu - Last Filed: 05/25/18 15:43> Phys Exam - Physical Examination Constitutional: NAD chachectic temporal wasting Respiratory: no wheezing, no rales, clear to auscultation bilateral Cardiovascular: RRR Neurological: moves all 4 limbs Deviation from normal: depressed mood, congruent affect, good eye contact <Alethea Jeter - Last Filed: 05/25/18 13:46> Dx/Plan (1) Malnutrition due to starvation Code(s): E46 - UNSPECIFIED PROTEIN-CALORIE MALNUTRITION Status: Acute (2) Anorexia nervosa with bulimia Code(s): F50.02 - ANOREXIA NERVOSA, BINGE EATING/PURGING TYPE Status: Acute (3) Anxiety Code(s): F41.9 - ANXIETY DISORDER, UNSPECIFIED Status: Acute (4) Depression Code(s): F32.9 - MAJOR DEPRESSIVE DISORDER, SINGLE EPISODE, UNSPECIFIED Status : Acute Qualifiers: Depression Type: major depressive disorder Major depression recurrence: unspecified whether recurrent Active/Remission status: remission status unspecified Qualified Code(s): F32.9 - Major depressive disorder, single episode, unspecified (5) Femur fracture, left Code(s): S72.92XA - UNSP FRACTURE OF LEFT FEMUR, INIT ENCNTR FOR CLOSED FRACTURE Status: Acute Qualifiers: Fracture alignment: nondisplaced (6) Osteoporosis Code(s): M81.0 - AGE-RELATED OSTEOPOROSIS W/O CURRENT PATHOLOGICAL FRACTURE Status: Acute Qualifiers: Osteoporosis type: unspecified Presence of current pathological fracture: unspecified Qualified Code(s): M81.0 - Age-related osteoporosis without current pathological fracture (7) Vitamin D deficiency Code(s): E55.9 - VITAMIN D DEFICIENCY, UNSPECIFIED Status: Acute (8) HFrEF (heart failure with reduced ejection fraction) Code(s): I50.20 - UNSPECIFIED SYSTOLIC (CONGESTIVE) HEART FAILURE Status: Resolved Qualifiers: Heart failure chronicity: unspecified Qualified Code(s): I50.20 - Unspecified systolic (congestive) heart failure - Plan Plan: Malnutrition 2/2 Anorexia -Patient with h/o longstanding anorexia, binging/purging type, but had acute worsening with decline in BMI - weight today 36kg, stable from admission - Mirtazapine 15mg - Olanzapine - wire setter consulted, appreciate recs, will try to add lipids today - plan is for placement at [facility] in [place]. Patient and patient's family are agreeable at this time. - Brother is now MPOA and can help facilitate her medical care. He is agreeable to placing more restrictions to improve her behavior and overall health. Plan to remove trashcan and turn off the water today. - Continue TPN and consider tube feeds - pt encouraged to journal after one meal per day to replace purging as a means of relieving stress. Pt is agreeable to plan although has not been successful in this. Left femur fracture- stable - Fall in January 2018, was supposed to follow with ortho - Dr. Funez consulted, Rec'd walker, f/u in 6-8 wks - Walking program Osteoporosis - h/o multiple fractures, likely 2/2 chronic malnutrition. Pt with low vit D. - Vit D supplementation Depression - No active SI. -Continue weaning off zoloft and transitioning to prozac. D/c zoloft 05/27 - mirtazapine. Anxiety - as above. GERD - continue protonix DVT PPx: lovenox IVF: TPN Code status: Full dispo: Will need to determine if she is actually an acceptable candidate to [facility]. After discussing with [facility], she is not guaranteed a spot as I understand it. Will meet with wire setter to establish increased calories in TPN and have discussion with patient and brother about increasing restrictions. <Alethea Jeter - Last Filed: 05/25/18 13:46> Attending Addendum - Attending Addendum Date/Time: 05/25/18 0063 I personally evaluated the patient and discussed the management with Dr. Jeter. I agree with and repeated the History, Examination, Assessment and Plan documented above with any addition or exceptions noted below. Multidisciplinary rounds today with nutrition, RN, steam clean machine operator, case therapist to discuss goals of care. For today, we will be adding restrictions by removing trash can and turning off water to her bathroom. Lipids will plan on being added tomorrow. I discussed this with the patient and she is upset with me. She tells me "you just don't care" and "If you do those things I'm going to be the worst patient you've had." I again called [facility] in [place]. The accepting physician there had evidently reviewed her case and felt she was appropriate for care at there facility before he had a family emergency. I also spoke with Marcos, the patient's brother, and he agrees with the restrictions. I have also been in discussion with her PCP and attendings who have seen her and her family in our clinic and they agree with the current treatment plan as well. I have called Dr. Simmons in [place] and discussed the case, and she has discussed the case with nursing leadership there and they feel they will not be able to provide the level of supervision we are able to at the hospital. Due to the multiple calls his sister has been making, with repeated attempts to manipulate family and friends to bring her things to the hospital, he has shut off her phone. He recounts a long history of manipulative behavior and lying. He wants her to have a chance to get better and understands that she will be upset and angry with the changes we have discussed for today. I believe it is in her best interested to attempt to minimize her purging behaviors and restrict any harmful binging as well. Due to our limitations and lack of expertise here, which I discussed with Marcos, I am not willing to sedate or restrain the patient in order to nutritionally rehabilitate her. If she does act out after these restrictions we may need to move to a harm reduction model for the next two weeks, with a goal to maintain weight and ensure normal labs and vital signs so that she will be able to travel. I discussed the r/b/a/i of a medical transport, and Marcos believes at this time the risk would be worth the transportation by private vehicle and plane. I answered all his questions and will call him with any updates. Nursing has been instructed to call me with any issues this afternoon or evening. Plan will be for a multidisciplinary meeting daily. <Don Lu - Last Filed: 05/25/18 15:43>
[2018-05-25] MEDS: Enoxaparin Sodium 40 MG/0.4 ML SYRINGE SC SCH (09:03)
[2018-05-25] MEDS: OLANZapine 5 MG TAB PO SCH (09:04)
[2018-05-25] MEDS: Acetaminophen 325 MG TAB PO PRN (09:04)
[2018-05-25] MEDS: Gabapentin 300 MG CAP PO SCH ×3 (09:04→20:37)
[2018-05-25] MEDS: FLUoxetine HCl 20 MG CAP PO SCH (20:37)
[2018-05-25] MEDS: Mirtazapine 15 MG TAB PO SCH (20:37)
[2018-05-25] MEDS: Melatonin 3 MG TAB PO PRN (20:38)
[2018-05-25] MEDS ORDERED: POTASSIUM PHOSPHATE IV SCH (22:00)
[2018-05-25] MEDS ORDERED: POTASSIUM CHLORIDE IV SCH (22:00)
[2018-05-25] MEDS ORDERED: [UNRECOGNIZED DRUG - OTHER] IV SCH (22:00)
[2018-05-25] MEDS ORDERED: CALCIUM GLUCONATE IV SCH (22:00)
[2018-05-26] MEDS: Gabapentin 300 MG CAP PO SCH ×3 (08:30→21:10)
[2018-05-26] MEDS: Enoxaparin Sodium 40 MG/0.4 ML SYRINGE SC SCH (08:31)
[2018-05-26] MEDS: OLANZapine 5 MG TAB PO SCH (08:33)
--- NOTE | 2018-05-26 09:42 | PDOC.FM ---
Addendum entered and electronically signed by Alethea Jeter DO 05/26/18 09:42: HPI: Patient upset this morning. She is frustrated with restrictions and appears restrictions did not improve purging behavior yesterday, purging into toilet despite water being off. Exam: General: cacectic, thin, malnourished Psych: depressed mood, depressed affevy Original Note: - Objective Vital Signs & Weight: Vital Signs (12 hours) Temp Pulse Resp BP BP BP Pulse Ox 05/26/18 09:00 95 05/26/18 08:23 98.5 F 66 18 85/58 L 92/64 90/52 L 95 05/26/18 04:00 97.5 F L 59 L 16 95/54 L 96 Weight Admit Weight 36.514 kg Weight 39.916 kg I&O: 05/25/18 05/26/18 05/27/18 06:59 06:59 06:59 Intake Total 3870 2995 Balance 3870 2995 Result Diagrams: 05/25/18 04:37 05/25/18 04:37 <Alethea Jeter - Last Filed: 05/26/18 09:33> - Objective Vital Signs & Weight: Vital Signs (12 hours) Temp Pulse Resp BP BP BP Pulse Ox 05/26/18 11:41 95/57 L 05/26/18 09:00 95 05/26/18 08:23 98.5 F 66 18 85/58 L 92/64 90/52 L 95 05/26/18 04:00 97.5 F L 59 L 16 95/54 L 96 Weight Admit Weight 36.514 kg Weight 39.916 kg I&O: 05/25/18 05/26/18 05/27/18 06:59 06:59 06:59 Intake Total 3870 2995 Balance 3870 2995 Result Diagrams: 05/25/18 04:37 05/25/18 04:37 <Don Lu - Last Filed: 05/26/18 13:26> Dx/Plan (1) Malnutrition due to starvation Code(s): E46 - UNSPECIFIED PROTEIN-CALORIE MALNUTRITION Status: Acute (2) Anorexia nervosa with bulimia Code(s): F50.02 - ANOREXIA NERVOSA, BINGE EATING/PURGING TYPE Status: Acute (3) Anxiety Code(s): F41.9 - ANXIETY DISORDER, UNSPECIFIED Status: Acute (4) Depression Code(s): F32.9 - MAJOR DEPRESSIVE DISORDER, SINGLE EPISODE, UNSPECIFIED Status : Acute Qualifiers: Depression Type: major depressive disorder Major depression recurrence: unspecified whether recurrent Active/Remission status: remission status unspecified Qualified Code(s): F32.9 - Major depressive disorder, single episode, unspecified (5) Femur fracture, left Code(s): S72.92XA - UNSP FRACTURE OF LEFT FEMUR, INIT ENCNTR FOR CLOSED FRACTURE Status: Acute Qualifiers: Fracture alignment: nondisplaced (6) Osteoporosis Code(s): M81.0 - AGE-RELATED OSTEOPOROSIS W/O CURRENT PATHOLOGICAL FRACTURE Status: Acute Qualifiers: Osteoporosis type: unspecified Presence of current pathological fracture: unspecified Qualified Code(s): M81.0 - Age-related osteoporosis without current pathological fracture (7) Vitamin D deficiency Code(s): E55.9 - VITAMIN D DEFICIENCY, UNSPECIFIED Status: Acute (8) HFrEF (heart failure with reduced ejection fraction) Code(s): I50.20 - UNSPECIFIED SYSTOLIC (CONGESTIVE) HEART FAILURE Status: Resolved Qualifiers: Heart failure chronicity: unspecified Qualified Code(s): I50.20 - Unspecified systolic (congestive) heart failure - Plan Plan: Malnutrition 2/2 Anorexia -Patient with h/o longstanding anorexia, binging/purging type, but had acute worsening with decline in BMI - weight today 39kg, improved from admission - Mirtazapine 15mg - Olanzapine - farm equipment operator consulted, appreciate recs, will try to add lipids today - plan is for placement at [facility] in [place]. Patient and patient's family are agreeable at this time. - Brother is now MPOA and can help facilitate her medical care. He is agreeable to placing more restrictions to improve her behavior. - Continue TPN - monitor labs q7d to evaluate for refeeding syndrome Left femur fracture- stable - Fall in January 2018, was supposed to follow with ortho - Dr. Funez consulted, Rec'd twyla, f/u in 6-8 wks - Walking program Osteoporosis - h/o multiple fractures, likely 2/2 chronic malnutrition. Pt with low vit D. - Vit D supplementation Depression - No active SI. -Continue weaning off zoloft and transitioning to prozac. D/c zoloft 05/27 - mirtazapine. Anxiety - as above. GERD - continue protonix DVT PPx: lovenox IVF: TPN Code status: Full dispo: Awaiting placement at [facility]. Will continue with restrictions placed yesterday and consider increasing restrictions and increased TPN caloric content to provide nutritional rehabilitation. Plan for interdisciplinary rounds this morning to discuss again. Will keep brotherJAYDA informed. <Alethea Jeter - Last Filed: 05/26/18 09:33> Attending Addendum - Attending Addendum Date/Time: 05/26/18 1311 I personally evaluated the patient and discussed the management with Dr. Jeter. I agree with and repeated the History, Examination, Assessment and Plan documented above with any addition or exceptions noted below. Patient upset this morning about the restrictions placed and has been purging in the toilet. She answered "fine to most of my questions today." At one point she became insulting, tell me "you just sit there with your little smile and crossed legs in that chair and think everything is fine but its not." She also was very upset that I muted the TV without asking. On multidisciplinary rounds today we discussed her case in detail. We will make few changes today since she seems to be quite frustrated. We have broached the topic of an NG or NJ tube. Concerning the cross taper of SSRIs we will complete that today. We will add a small dose of olanzapine qhs. D/c mirtazapine. Continue current meal restrictions. We will consider decreasing her PO in order to deescalate her purging behavior. I will speak with her MPOA today. <Don Lu - Last Filed: 05/26/18 13:26>
[2018-05-26] MEDS: FLUoxetine HCl 20 MG CAP PO SCH (21:10)
[2018-05-26] MEDS: OLANZapine 2.5 MG TAB PO SCH (21:10)
[2018-05-26] MEDS: Melatonin 3 MG TAB PO PRN (21:11)
[2018-05-26] MEDS: Acetaminophen 325 MG TAB PO PRN (21:15)
[2018-05-26] MEDS ORDERED: [UNRECOGNIZED DRUG - OTHER] IV SCH (22:00)
[2018-05-26] MEDS ORDERED: POTASSIUM CHLORIDE IV SCH (22:00)
[2018-05-26] MEDS ORDERED: POTASSIUM PHOSPHATE IV SCH (22:00)
[2018-05-26] MEDS ORDERED: CALCIUM GLUCONATE IV SCH (22:00)
[2018-05-26] MEDS: FAT EMULSION IV SCH (22:46)
[2018-05-26] MEDS: ADMIXTURE FEE IV SCH (22:46)
[2018-05-27 05:25] LABS: #Eosinphils 0.1 thou/uL (0.0-0.7); #Lymphocytes 0.5 thou/uL (1.20-3.40); #Monocytes 0.5 thou/uL (0.11-0.59); #Neutrophils 4.5 thou/uL (1.40-6.50); %Basophils 0.1 % (0.0-1.0); %Eosinophils 2.1 % (0.0-10.0); %Lymphocytes 8.5 % (21.0-51.0); %Monocytes 8.4 % (0.0-10.0); %Neutrophils 80.9 % (42.0-75.0); Hemoglobin 10.5 g/dL (12.0-16.0); Mean Corpuscular HGB CONC 31.4 g/dL (32.0-36.0); Mean Corpuscular Hemoglobin 30.7 pg (27.0-31.0); Mean Corpuscular Volume 97.7 fL (78.0-98.0); Mean Platelet Volume 11.8 fL (7.4-10.4); Platelet Count 111 thou/uL (130-400); RBC Distribution Width 13.4 % (11.5-14.5); Red Blood Cell (RBC) Count 3.41 mill/uL (4.20-5.40); White Blood Cell (WBC) Count 5.5 thou/uL (4.8-10.8)
--- NOTE | 2018-05-27 05:37 | PDOC.FM ---
- Subjective Subjective: Patient reports a MCKEON today that is b/l temporal pain that extends the circumference of her head and is throbbing. She also endorses back pain and neck pain. She has not had any pain medication at this time. She reports sleeping well. Per review of nursing notes purged 3x yesterday, lunch, dinner, and snack. No manipulative behaviors documented. She is upset because she feels as if her brother is avoiding her now. - Objective MAR Reviewed: Yes Vital Signs & Weight: Vital Signs (12 hours) Temp Pulse Resp BP BP Pulse Ox 05/27/18 00:00 97.9 F 86 16 89/52 L 97 05/26/18 21:00 97 05/26/18 20:00 97.3 F L 95 16 116/67 97 Weight Admit Weight 36.514 kg Weight 39.916 kg I&O: 05/25/18 05/26/18 05/27/18 06:59 06:59 06:59 Intake Total 3870 2995 1935 Output Total 2 Balance 3870 2995 1933 Result Diagrams: 05/27/18 04:48 05/27/18 04:48 <Alethea Jeter - Last Filed: 05/27/18 11:06> - Objective Vital Signs & Weight: Vital Signs (12 hours) Temp Pulse Resp BP Pulse Ox 05/27/18 08:29 99.1 F 83 16 105/67 94 L 05/27/18 08:00 94 L Weight Admit Weight 36.514 kg Weight 39.009 kg I&O: 05/26/18 05/27/18 05/28/18 06:59 06:59 06:59 Intake Total 2995 3515 600 Output Total 2 Balance 2995 3513 600 Result Diagrams: 05/27/18 04:48 05/27/18 04:48 <Don Lu - Last Filed: 05/27/18 14:48> Phys Exam - Physical Examination cachectic, temporal wasting, malnourished appearing HEENT: moist MMs Respiratory: no wheezing, no rales, clear to auscultation bilateral Cardiovascular: RRR, no significant murmur Musculoskeletal: no edema ttp along paraspinal thoracic and cervical spine, ttp along spinous processes, normal neck ROM Neurological: moves all 4 limbs Psychiatric: A&O x 3 Deviation from normal: depressed mood, affect congruent, cooperative with exam <Alethea Jeter - Last Filed: 05/27/18 11:06> Dx/Plan (1) Malnutrition due to starvation Code(s): E46 - UNSPECIFIED PROTEIN-CALORIE MALNUTRITION Status: Acute (2) Anorexia nervosa with bulimia Code(s): F50.02 - ANOREXIA NERVOSA, BINGE EATING/PURGING TYPE Status: Acute (3) Anxiety Code(s): F41.9 - ANXIETY DISORDER, UNSPECIFIED Status: Acute (4) Depression Code(s): F32.9 - MAJOR DEPRESSIVE DISORDER, SINGLE EPISODE, UNSPECIFIED Status : Acute Qualifiers: Depression Type: major depressive disorder Major depression recurrence: unspecified whether recurrent Active/Remission status: remission status unspecified Qualified Code(s): F32.9 - Major depressive disorder, single episode, unspecified (5) Femur fracture, left Code(s): S72.92XA - UNSP FRACTURE OF LEFT FEMUR, INIT ENCNTR FOR CLOSED FRACTURE Status: Acute Qualifiers: Fracture alignment: nondisplaced (6) Osteoporosis Code(s): M81.0 - AGE-RELATED OSTEOPOROSIS W/O CURRENT PATHOLOGICAL FRACTURE Status: Acute Qualifiers: Osteoporosis type: unspecified Presence of current pathological fracture: unspecified Qualified Code(s): M81.0 - Age-related osteoporosis without current pathological fracture (7) Vitamin D deficiency Code(s): E55.9 - VITAMIN D DEFICIENCY, UNSPECIFIED Status: Acute (8) HFrEF (heart failure with reduced ejection fraction) Code(s): I50.20 - UNSPECIFIED SYSTOLIC (CONGESTIVE) HEART FAILURE Status: Resolved Qualifiers: Heart failure chronicity: unspecified Qualified Code(s): I50.20 - Unspecified systolic (congestive) heart failure (9) Borderline personality disorder Code(s): F60.3 - BORDERLINE PERSONALITY DISORDER Status: Acute - Plan Plan: Malnutrition 2/2 Anorexia -Patient with h/o longstanding anorexia, binging/purging type, but had acute worsening with decline in BMI - weight today 39kg, improved from admission - Olanzapine - refrigerator mover following, TPN in place with lipids, monitor labs daily for refeeding syndrome, no s/sx at this time. - plan is for placement at [facility] in [place]. Patient and patient's family are agreeable at this time. - Brother is now MPOA and can help facilitate her medical care. He is agreeable to placing more restrictions to improve her behavior. Tension MCKEON: - will try ibuprofen for MCKEON - consider CK to r/o initial signs of rhabdo although no s/sx of generalized myalgias at this time - also consider Xray with severe osteoporosis despite lack of injury. Left femur fracture- stable - Fall in January 2018, was supposed to follow with ortho - Dr. Funez consulted, Rec'd walker, f/u in 6-8 wks - Walking program Osteoporosis - h/o multiple fractures, likely 2/2 chronic malnutrition. Pt with low vit D. - Vit D supplementation Multiple Psych DO's: Depression, Anxiety, and Borderline Personality DO - continue Prozac and Olanzapine GERD - continue protonix DVT PPx: lovenox IVF: TPN Code status: Full dispo: Awaiting placement at [facility]. Will continue with current restrictions and consider increasing restrictions to provide nutritional rehabilitation. Plan for interdisciplinary rounds this morning to discuss again. Will keep brotherJAYDA informed. <Alethea Jeter - Last Filed: 05/27/18 11:06> Attending Addendum - Attending Addendum Date/Time: 05/27/18 0471 I personally evaluated the patient and discussed the management with Dr. Jeter. I agree with and repeated the History, Examination, Assessment and Plan documented above with any addition or exceptions noted below. Severe malnutrition -increase TPN calories to 2200. Decrease PO to 2000 d/t purging. We will order food for her now. Anorexia, b/p subtype -door now locked to BR; bedside commode needs to be removed from room -no s/s refeeding -discussed NGT and she is very opposed at this time, will continue to revisit MDD/BPD -transitioning SSRIs -low dose olanzapine added qhs -mirtazipine d/c'd -no visitors except family All these changes were discussed in multidisciplinary rounds. Family meeting with Marcos and his , Keesha. They are in agreement with this plan, and the plan has been relayed to the patient. If the patient does not work toward improving she will not be allowed to live with them. Disposition planning will be discussed if PN program is unable to take patient. Please note, due to her severe malnutrition, eating disorder, and overall severe psychopathology the patient does not have the medical capacity to make decisions for herself. She has demonstrated this repeatedly by her behavior and conversations with staff and family, including a desire to harm herself through continued starvation and binging/purging to multiple people. <Don Lu - Last Filed: 05/27/18 14:48>
[2018-05-27 05:41] LABS: ALT (SGPT) 16 U/L (8-55); AST (SGOT) 26 U/L (5-34); Albumin 3.5 g/dL (3.5-5.0); Alkaline Phosphatase 100 U/L (40-150); Anion Gap 10 mmol/L (10-20); BUN (Urea Nitrogen) 21 mg/dL (7.0-18.7); Bilirubin, Total 0.2 mg/dL (0.2-1.2); Calc. Creatinine Clearance 69 mL/min (70-130); Calcium 8.9 mg/dL (7.8-10.44); Carbon Dioxide 26 mmol/L (22-29); Chloride 107 mmol/L (98-107); Estimated GFR-MDRD Greater than 90; Globulin 2.9 g/dL (2.4-3.5); Glucose 95 mg/dL (70-105); Magnesium 1.9 mg/dL (1.6-2.6); Phosphorus 4.6 mg/dL (2.3-4.7); Potassium 4.1 mmol/L (3.5-5.1); Protein, Total 6.4 g/dL (6.0-8.3); Sodium 139 mmol/L (136-145)
[2018-05-27] MEDS: OLANZapine 5 MG TAB PO SCH (08:25)
[2018-05-27] MEDS: Gabapentin 300 MG CAP PO SCH ×3 (08:25→21:09)
[2018-05-27] MEDS: Enoxaparin Sodium 40 MG/0.4 ML SYRINGE SC SCH (08:26)
[2018-05-27] MEDS: Acetaminophen 325 MG TAB PO PRN ×2 (15:51→21:29)
[2018-05-27] MEDS: OLANZapine 2.5 MG TAB PO SCH (21:08)
[2018-05-27] MEDS: FLUoxetine HCl 20 MG CAP PO SCH (21:09)
[2018-05-27] MEDS ORDERED: POTASSIUM PHOSPHATE IV SCH (22:00)
[2018-05-27] MEDS ORDERED: CALCIUM GLUCONATE IV SCH (22:00)
[2018-05-27] MEDS ORDERED: POTASSIUM CHLORIDE IV SCH (22:00)
[2018-05-27] MEDS ORDERED: [UNRECOGNIZED DRUG - OTHER] IV SCH (22:00)
[2018-05-27] MEDS: FAT EMULSION IV SCH (22:59)
[2018-05-27] MEDS: ADMIXTURE FEE IV SCH (22:59)
[2018-05-27] MEDS: Melatonin 3 MG TAB PO PRN (23:08)
[2018-05-28] MEDS: Acetaminophen 325 MG TAB PO PRN ×4 (03:56→21:47)
[2018-05-28 04:57] LABS: #Basophils 0.1 thou/uL (0.0-0.2); #Lymphocytes 0.1 thou/uL (1.20-3.40); #Monocytes 0.3 thou/uL (0.11-0.59); %Basophils 1.7 % (0.0-1.0); %Eosinophils 0.3 % (0.0-10.0); %Lymphocytes 3.3 % (21.0-51.0); %Monocytes 8.6 % (0.0-10.0); %Neutrophils 86.1 % (42.0-75.0); Hemoglobin 10.1 g/dL (12.0-16.0); Large Platelets SLIGHT; MDiff Complete? YES; Mean Corpuscular HGB CONC 32.2 g/dL (32.0-36.0); Mean Corpuscular Hemoglobin 30.2 pg (27.0-31.0); Mean Corpuscular Volume 93.9 fL (78.0-98.0); Mean Platelet Volume 12.9 fL (7.4-10.4); PLT Morphology Comment Appears Decreased; Platelet Count 66 thou/uL (130-400); RBC Distribution Width 13.3 % (11.5-14.5); Red Blood Cell (RBC) Count 3.33 mill/uL (4.20-5.40); White Blood Cell (WBC) Count 3.5 thou/uL (4.8-10.8)
[2018-05-28 05:14] LABS: ALT (SGPT) 96 U/L (8-55); AST (SGOT) 148 U/L (5-34); Albumin 3.6 g/dL (3.5-5.0); Alkaline Phosphatase 109 U/L (40-150); Anion Gap 10 mmol/L (10-20); BUN (Urea Nitrogen) 23 mg/dL (7.0-18.7); Bilirubin, Total 0.3 mg/dL (0.2-1.2); Calc. Creatinine Clearance 63 mL/min (70-130); Calcium 8.4 mg/dL (7.8-10.44); Carbon Dioxide 26 mmol/L (22-29); Chloride 104 mmol/L (98-107); Estimated GFR-MDRD 89; Globulin 2.9 g/dL (2.4-3.5); Glucose 123 mg/dL (70-105); Magnesium 1.9 mg/dL (1.6-2.6); Phosphorus 3.2 mg/dL (2.3-4.7); Protein, Total 6.5 g/dL (6.0-8.3); Sodium 136 mmol/L (136-145)
--- NOTE | 2018-05-28 07:01 | PDOC.FM ---
- Subjective Subjective: Patient is doing well this morning despite fever of 103. She was recently given Tylenol and now feels much improved. She purged 1x yesterday. She reports some mild nausea, body aches, neck stiffness, and MCKEON. she denies abd pain, change in bowels, dysuria, cough, sob, cp, vision changes, bruising or falls, IV site irritation, skin lesions, and sore throat. - Objective MAR Reviewed: Yes Vital Signs & Weight: Vital Signs (12 hours) Temp Pulse Resp BP BP BP Pulse Ox 05/28/18 05:00 98.8 F 05/28/18 03:39 103.0 F H 104 H 12 103/63 93 L 05/28/18 00:00 100.3 F H 98 16 84/46 L 95 05/27/18 22:09 100.8 F H 05/27/18 20:00 98.0 F 115 H 18 100/64 98 Weight Admit Weight 36.514 kg Weight 38.555 kg I&O: 05/26/18 05/27/18 05/28/18 06:59 06:59 06:59 Intake Total 2995 3515 960 Output Total 2 Balance 2995 3513 960 Result Diagrams: 05/28/18 04:09 05/28/18 04:09 <Alethea Jeter - Last Filed: 05/28/18 07:52> - Objective Vital Signs & Weight: Vital Signs (12 hours) Temp Pulse Resp BP BP Pulse Ox 05/28/18 08:00 96 05/28/18 07:32 98.2 F 93 16 97/63 96 05/28/18 05:00 98.8 F 05/28/18 03:39 103.0 F H 104 H 12 103/63 93 L 05/28/18 00:00 100.3 F H 98 16 84/46 L 95 Weight Admit Weight 36.514 kg Weight 38.555 kg I&O: 05/27/18 05/28/18 05/29/18 06:59 06:59 06:59 Intake Total 3515 1200 360 Output Total 2 Balance 3513 1200 360 Result Diagrams: 05/28/18 04:09 05/28/18 04:09 <Don Lu - Last Filed: 05/28/18 11:00> Phys Exam - Physical Examination Constitutional: NAD HEENT: moist MMs no neck stiffness, negative kernig sign ttp along musclulature Respiratory: no wheezing, no rales, clear to auscultation bilateral Cardiovascular: RRR, no significant murmur pulses 2+ UE Gastrointestinal: soft, non-tender, no distention, positive bowel sounds no rebound, no hepatomegaly Musculoskeletal: no edema Neurological: non-focal, normal sensation, moves all 4 limbs Psychiatric: A&O x 3 <Alethea Jeter - Last Filed: 05/28/18 07:52> Dx/Plan (1) Neutropenic fever Code(s): D70.9 - NEUTROPENIA, UNSPECIFIED; R50.81 - FEVER PRESENTING WITH CONDITIONS CLASSIFIED ELSEWHERE Status: Acute (2) SIRS (systemic inflammatory response syndrome) Code(s): R65.10 - SIRS OF NON-INFECTIOUS ORIGIN W/O ACUTE ORGAN DYSFUNCTION Status: Acute (3) Malnutrition due to starvation Code(s): E46 - UNSPECIFIED PROTEIN-CALORIE MALNUTRITION Status: Acute (4) Anorexia nervosa with bulimia Code(s): F50.02 - ANOREXIA NERVOSA, BINGE EATING/PURGING TYPE Status: Acute (5) Anxiety Code(s): F41.9 - ANXIETY DISORDER, UNSPECIFIED Status: Acute (6) Depression Code(s): F32.9 - MAJOR DEPRESSIVE DISORDER, SINGLE EPISODE, UNSPECIFIED Status : Acute Qualifiers: Depression Type: major depressive disorder Major depression recurrence: unspecified whether recurrent Active/Remission status: remission status unspecified Qualified Code(s): F32.9 - Major depressive disorder, single episode, unspecified (7) Femur fracture, left Code(s): S72.92XA - UNSP FRACTURE OF LEFT FEMUR, INIT ENCNTR FOR CLOSED FRACTURE Status: Acute Qualifiers: Fracture alignment: nondisplaced (8) Osteoporosis Code(s): M81.0 - AGE-RELATED OSTEOPOROSIS W/O CURRENT PATHOLOGICAL FRACTURE Status: Acute Qualifiers: Osteoporosis type: unspecified Presence of current pathological fracture: unspecified Qualified Code(s): M81.0 - Age-related osteoporosis without current pathological fracture (9) Vitamin D deficiency Code(s): E55.9 - VITAMIN D DEFICIENCY, UNSPECIFIED Status: Acute (10) HFrEF (heart failure with reduced ejection fraction) Code(s): I50.20 - UNSPECIFIED SYSTOLIC (CONGESTIVE) HEART FAILURE Status: Resolved Qualifiers: Heart failure chronicity: unspecified Qualified Code(s): I50.20 - Unspecified systolic (congestive) heart failure (11) Borderline personality disorder Code(s): F60.3 - BORDERLINE PERSONALITY DISORDER Status: Acute - Plan Plan: SIRS, Neutropenic Fever - unk source, neg exam - Flu neg, Ucx, UA, Bloodcx, CK, and CXR pending - will start broad spectrum abx with Vanc and Zosyn Elevated Liver Enzymes - likely 2/2 refeeding - will discuss reducing TPN feeds, all other labs wnl with exception of WBC - Phos downtrended from 4.6 to 3.2, again consider slowing TPN feeds Malnutrition 2/2 Anorexia -Patient with h/o longstanding anorexia, binging/purging type, but had acute worsening with decline in BMI - weight today 39kg, improved from admission - Olanzapine - occupational therapy director following, TPN in place with lipids, monitor labs daily for refeeding syndrome, no s/sx at this time. - plan is for placement at [facility] in [place]. Patient and patient's family are agreeable at this time. - Brother is now MPOA and can help facilitate her medical care. He is agreeable to placing more restrictions to improve her behavior. Left femur fracture- stable - Fall in January 2018, was supposed to follow with ortho - Dr. Funez consulted, Rec'd walker, f/u in 6-8 wks - Walking program Osteoporosis - h/o multiple fractures, likely 2/2 chronic malnutrition. Pt with low vit D. - Vit D supplementation Multiple Psych DO's: Depression, Anxiety, and Borderline Personality DO - continue Prozac and Olanzapine GERD - continue protonix DVT PPx: lovenox IVF: TPN Code status: Full dispo: Evaluate fever source further. Awaiting placement at [facility]. Will continue with current restrictions and consider increasing restrictions to provide nutritional rehabilitation. Plan for interdisciplinary rounds this morning to discuss again. Will keep brotherJAYDA informed. <Alethea Jeter - Last Filed: 05/28/18 07:52> Attending Addendum - Attending Addendum Date/Time: 05/28/18 9947 I personally evaluated the patient and discussed the management with Dr. Jeter. I agree with and repeated the History, Examination, Assessment and Plan documented above with any addition or exceptions noted below. Pt feeling well this morning despite fevers overnight. Her exam today is unchanged except an increased HR without new murmur. I am concerned she is developing line sepsis. Will touch base with Dr. Perez. I believe it is quite a difficult position. If we have to pull the line we will have to likely pursue NGT feeds. With her new elevation of LFTs and dropping phos after the initiation of lipids and possibly increased PO she may be developing refeeding. She is not neutropenic. Will watch closely. <Don Lu - Last Filed: 05/28/18 11:00>
[2018-05-28] MEDS ORDERED: Vancomycin HCl 1 GM in Premix Bag 1 BAG IVPB SCH (08:00)
[2018-05-28] MEDS: OLANZapine 5 MG TAB PO SCH (08:07)
[2018-05-28] MEDS: Enoxaparin Sodium 40 MG/0.4 ML SYRINGE SC SCH (08:07)
[2018-05-28] MEDS: Gabapentin 300 MG CAP PO SCH ×3 (08:07→20:28)
[2018-05-28] MEDS: Piperacillin/Tazobactam 3.375 GM in Sodium Chloride 0.9% 100 ML IVPB SCH ×3 (08:28→20:23)
[2018-05-28 08:37] LABS: Bilirubin Negative (Negative); Blood, Urine Negative (Negative); Clarity CLEAR (Clear); Glucose, Urine (Dipstick) Negative (Negative); Leukocyte Negative (Negative); Nitrite Negative (Negative); Protein, Urine (Dipstick) Negative (Neg-Trace); Specific Gravity, Urine 1.012 (1.002-1.036); Urobilinogen 0.2 mg/dL (0.2-1.0)
[2018-05-28] MEDS ORDERED: Potassium Phosphate 9 MMOL in Sodium Chloride 0.9% 100 ML IVPB SCH (09:30)
[2018-05-28] MEDS: Micafungin 100 MG in Sodium Chloride 0.9% 100 ML IVPB SCH (14:07)
--- NOTE | 2018-05-28 15:38 | RAD ---
CHEST 2 VIEWS: Date: 05/28/18 HISTORY: Sepsis. Aspiration pneumonia. COMPARISON: None. FINDINGS: Lungs are hyperinflated. There is a nodular density projecting in the left lung apex. Cardiac silhouette and mediastinal contours within normal limits. IMPRESSION: 1. Lung hyperinflation suggesting obstructive pulmonary disease. 2. Nodular density projecting over the left upper lobe. Nonemergent follow-up CT chest recommended. CODE T. CODE LN. POS: KIRILL
[2018-05-28] MEDS: Sodium Chloride 0.9% 1,000 ML IV SCH (20:24)
[2018-05-28] MEDS: FLUoxetine HCl 20 MG CAP PO SCH (20:28)
--- NOTE | 2018-05-28 21:28 | CON ---
DATE OF CONSULTATION: 05/28/2018 REASON FOR CONSULTATION: Fever. HISTORY OF PRESENT ILLNESS: A 43-year-old who has a history of anorexia nervosa and has been admitted for progressive decline in her nutritional status. Patient also has had a recent femur fracture associated with osteoporosis from malnutrition. Patient was admitted on 05/05 and has had a PICC line inserted in the left upper extremity for the past 20 days and was being readied for discharge and transferred to another facility when she developed fever for the past few days. She is currently awake, pleasant. Denies any headaches, no visual symptoms, sore throat, odynophagia, dysphagia, no cough or dyspnea, no chest pain, no back pain, no abdominal pain. Voiding without difficulty. No diarrhea. PAST MEDICAL HISTORY: Anorexia nervosa, depression, osteoporosis, left femur fracture. PAST SURGICAL HISTORY: Hip surgery for other fractures in the past in the hip area. FAMILY HISTORY: Noncontributory. SOCIAL HISTORY: Had been living with brother and mother. ALLERGIES: None. CURRENT MEDICATIONS: Tylenol, Tums, Lovenox, Prozac, Neurontin, melatonin, micafungin, olanzapine, ondansetron, Zosyn. Vancomycin has been discontinued. She had been on TPN, which has been discontinued. PHYSICAL EXAMINATION: VITAL SIGNS: T-max 103 and now 102.8, blood pressure 90/50, pulse 113, respirations 18, O2 sat 94%. SKIN: Prior site for the PICC line. She has no lymphadenopathy. She has wasting syndrome noted with temporal wasting. The patient has areas of excoriation in the distal lower extremities. HEENT: Ocular movements are conjugate. Sclerae white. Pupils are equal. Oral cavity moist. Numerous teeth in place with some decay. NECK: Supple, no jugular distention. LUNGS: Clear to auscultation and percussion. HEART: S1, S2, regular rate. No S3, S4, or murmurs. ABDOMEN: Soft, not distended or tender. No ascites. No bladder distention. EXTREMITIES: No joint inflammatory activity noted. NEUROLOGIC: She is able to move extremities on command. She is awake, oriented , follows commands. LABORATORY DATA: White cell count was 4.3 and now 3.5, hemoglobin 10.1, MCV 93 , platelets are down, 86% neutrophils. INR 0.9. Sodium 136, creatinine 0.72, glucose 123, magnesium 1.9, phosphorus 3.2, AST 148, ALT 96. Albumin 3.6, globulin 2.9. Urinalysis was normal. Patient has had 2 sets of blood cultures which have been drawn today and they are pending. She had a Cardiology stress nuclear test which was negative. ASSESSMENT: 1. Anorexia nervosa with marked wasting syndrome. 2. TPN through a PICC line inserted 20 days ago. 3. New onset of fever for the past few days. DISCUSSION: Differential diagnosis includes line associated colonization by bacterial or fungal pathogens versus an alternate inflammatory process appeared to be refeeding syndrome does not appear likely. She does not have any other sites of involvement and I believe the line colonization is most likely scenario. She does have some liver function abnormalities and hepatobiliary tract abnormality will have to be considered depending on clinical progress. Continue broad spectrum coverage and we will wait for the results of the cultures. MTDD
[2018-05-28] MEDS: Melatonin 3 MG TAB PO PRN (22:26)
[2018-05-28] MEDS: OLANZapine 2.5 MG TAB PO SCH (22:27)
[2018-05-29] MEDS: Piperacillin/Tazobactam 3.375 GM in Sodium Chloride 0.9% 100 ML IVPB SCH ×2 (01:33→07:48)
[2018-05-29 04:28] LABS: Magnesium 1.6 mg/dL (1.6-2.6); Phosphorus 3.7 mg/dL (2.3-4.7)
[2018-05-29 04:33] LABS: ALT (SGPT) 161 U/L (8-55); AST (SGOT) 224 U/L (5-34); Alkaline Phosphatase 117 U/L (40-150); Anion Gap 9 mmol/L (10-20); BUN (Urea Nitrogen) 17 mg/dL (7.0-18.7); Bilirubin, Total 0.6 mg/dL (0.2-1.2); Calc. Creatinine Clearance 60 mL/min (70-130); Calcium 8.3 mg/dL (7.8-10.44); Carbon Dioxide 24 mmol/L (22-29); Chloride 110 mmol/L (98-107); Estimated GFR-MDRD 86; Globulin 2.6 g/dL (2.4-3.5); Glucose 84 mg/dL (70-105); Potassium 3.8 mmol/L (3.5-5.1); Protein, Total 5.6 g/dL (6.0-8.3); Sodium 139 mmol/L (136-145)
[2018-05-29 04:54] LABS: PLT Morphology Comment Appears Decreased; RBC Morphology Normal
[2018-05-29 04:55] LABS: #Lymphocytes 0.3 thou/uL (1.20-3.40); #Monocytes 0.1 thou/uL (0.11-0.59); #Neutrophils 2.5 thou/uL (1.40-6.50); %Basophils 1.3 % (0.0-1.0); %Eosinophils 0.3 % (0.0-10.0); %Lymphocytes 9.3 % (21.0-51.0); %Monocytes 4.6 % (0.0-10.0); %Neutrophils 84.5 % (42.0-75.0); Hemoglobin 9.2 g/dL (12.0-16.0); Mean Corpuscular HGB CONC 33.3 g/dL (32.0-36.0); Mean Corpuscular Hemoglobin 31.2 pg (27.0-31.0); Mean Corpuscular Volume 93.7 fL (78.0-98.0); Mean Platelet Volume 12.9 fL (7.4-10.4); Platelet Count 52 thou/uL (130-400); RBC Distribution Width 13.4 % (11.5-14.5); Red Blood Cell (RBC) Count 2.93 mill/uL (4.20-5.40); White Blood Cell (WBC) Count 2.9 thou/uL (4.8-10.8)
[2018-05-29] MEDS: Sodium Chloride 0.9% 1,000 ML IV SCH (06:11)
--- NOTE | 2018-05-29 06:44 | PDOC.FM ---
- Subjective Subjective: Patient is covered with numerous blankets this morning and reports she cannot get comfortable with body aches, continued MCKEON, and generalized weakness. She reports poor appetite. She denies purging episodes yesterday although sitter reports 1/3 meals purged. Despite explaining her poor medical condition and concern for sepsis, she still is resistant to NG tube feeds. Continues to deny abd pain. - Objective MAR Reviewed: Yes Vital Signs & Weight: Vital Signs (12 hours) Temp Pulse Resp BP Pulse Ox 05/29/18 04:00 98.0 F 05/29/18 00:00 99.4 F 05/28/18 21:45 102.9 F H 05/28/18 20:00 101.7 F H 99 18 96/64 95 Weight Admit Weight 36.514 kg Weight 38.555 kg I&O: 05/27/18 05/28/18 05/29/18 06:59 06:59 06:59 Intake Total 3515 1200 360 Output Total 2 Balance 3513 1200 360 Result Diagrams: 05/29/18 03:37 05/29/18 03:37 Radiology Reviewed by me: Yes <Alethea Jeter - Last Filed: 05/29/18 07:44> - Objective Vital Signs & Weight: Vital Signs (12 hours) Temp Pulse Resp BP Pulse Ox 05/29/18 10:57 98.8 F 92 18 92/58 L 94 L 05/29/18 08:00 96 05/29/18 07:13 100.1 F H 99 16 106/69 96 05/29/18 04:00 98.0 F 05/29/18 00:00 99.4 F Weight Admit Weight 36.514 kg Weight 39.463 kg I&O: 05/28/18 05/29/18 05/30/18 06:59 06:59 06:59 Intake Total 1200 360 360 Balance 1200 360 360 Result Diagrams: 05/29/18 03:37 05/29/18 03:37 <Don Lu - Last Filed: 05/29/18 11:34> Phys Exam - Physical Examination ill appearing, cachectic HEENT: moist MMs temporal wasting Respiratory: no wheezing, no rales, clear to auscultation bilateral tachycardic Gastrointestinal: non-tender Musculoskeletal: no edema Neurological: moves all 4 limbs Psychiatric: A&O x 3 <Alethea Jeter - Last Filed: 05/29/18 07:44> Dx/Plan (1) SIRS (systemic inflammatory response syndrome) Code(s): R65.10 - SIRS OF NON-INFECTIOUS ORIGIN W/O ACUTE ORGAN DYSFUNCTION Status: Acute (2) Malnutrition due to starvation Code(s): E46 - UNSPECIFIED PROTEIN-CALORIE MALNUTRITION Status: Acute (3) Anorexia nervosa with bulimia Code(s): F50.02 - ANOREXIA NERVOSA, BINGE EATING/PURGING TYPE Status: Acute (4) Anxiety Code(s): F41.9 - ANXIETY DISORDER, UNSPECIFIED Status: Acute (5) Depression Code(s): F32.9 - MAJOR DEPRESSIVE DISORDER, SINGLE EPISODE, UNSPECIFIED Status : Acute Qualifiers: Depression Type: major depressive disorder Major depression recurrence: unspecified whether recurrent Active/Remission status: remission status unspecified Qualified Code(s): F32.9 - Major depressive disorder, single episode, unspecified (6) Femur fracture, left Code(s): S72.92XA - UNSP FRACTURE OF LEFT FEMUR, INIT ENCNTR FOR CLOSED FRACTURE Status: Acute Qualifiers: Fracture alignment: nondisplaced (7) Osteoporosis Code(s): M81.0 - AGE-RELATED OSTEOPOROSIS W/O CURRENT PATHOLOGICAL FRACTURE Status: Acute Qualifiers: Osteoporosis type: unspecified Presence of current pathological fracture: unspecified Qualified Code(s): M81.0 - Age-related osteoporosis without current pathological fracture (8) Vitamin D deficiency Code(s): E55.9 - VITAMIN D DEFICIENCY, UNSPECIFIED Status: Acute (9) HFrEF (heart failure with reduced ejection fraction) Code(s): I50.20 - UNSPECIFIED SYSTOLIC (CONGESTIVE) HEART FAILURE Status: Resolved Qualifiers: Heart failure chronicity: unspecified Qualified Code(s): I50.20 - Unspecified systolic (congestive) heart failure (10) Borderline personality disorder Code(s): F60.3 - BORDERLINE PERSONALITY DISORDER Status: Acute - Plan Plan: SIRS, concern for line sepsis - continues to spike fevers, WBC 2.9 today, unk source, neg exam - PICC line pulled yesterday and sent for culture - Flu neg, UA neg, Urine cx NGTD - blood cx: 1/2 gram + cocci, 1/2 coag neg staph - consulted Ana, appreciate recs - continue broad spectrum coverage with Vanc, Zosyn, and Micafungin Elevated Liver Enzymes - continue to rise, possible development of refeeding - discontinued TPN feeds yesterday - Phos downtrended from 4.6--> 3.2-->3.7 Thrombocytopenia - plt 52 today - d/c lovenox for now Malnutrition 2/2 Anorexia -Patient with h/o longstanding anorexia, binging/purging type, but had acute worsening with decline in BMI - weight today 39kg, improved from admission - Olanzapine - buffer inflated pad following, discuss possible NG tube feeds today - plan is for placement at [facility] in [place]. Patient and patient's family are agreeable at this time. - Brother is now MPOA and can help facilitate her medical care. He is agreeable to placing more restrictions to improve her behavior although primary concern at this time is her fever and possible sepsis. Left femur fracture- stable - Fall in January 2018, was supposed to follow with ortho - Dr. Funez consulted, Rec'd twyla, f/u in 6-8 wks Osteoporosis - h/o multiple fractures, likely 2/2 chronic malnutrition. Pt with low vit D. - Vit D supplementation Multiple Psych DO's: Depression, Anxiety, and Borderline Personality DO - continue Prozac and Olanzapine GERD - continue protonix DVT PPx: SCD IVF: NS @ 100ml/hr Code status: Full dispo: Continue broad spec Abx and await cx. Discuss tube feeds via NG tube today. Awaiting placement at [facility]. Will continue with current restrictions to provide nutritional rehabilitation. Plan for interdisciplinary rounds this morning to discuss again. Will keep JAYDA martinez informed. <Alethea Jeter - Last Filed: 05/29/18 07:44> Attending Addendum - Attending Addendum Date/Time: 05/29/18 8085 I personally evaluated the patient and discussed the management with Dr. Jeter. I agree with and repeated the History, Examination, Assessment and Plan documented above with any addition or exceptions noted below. Headache improved from this AM and she says not bothering her much. Her exam is nonfocal. Unfortunate setback. Dr. Jeter updated Marcos last night. Due to her adamant refusal of NGT and out inability to use restraints TPN was continued out of a hope for some nutritional judaism and it was felt risk was less than benefit. However, the PICC line has been removed and she is growing CN staph with appropriate coverage. Repeat BC. Imaging reviewed and will defer to Dr. Perez concerning any additional, whether that be of the chest or head. She has no c/o back pain. If she does not remain stable with her weight we will attempt an NGT placement. She only purged once yesterday per sitter. We are having some difficulty with the change of staff and doing things like keeping the bedside commode out of the room, keeping food trays that are extra from the room, and not allowing her to view her weight, etc. <Don Lu - Last Filed: 05/29/18 11:34>
[2018-05-29] MEDS ORDERED: Potassium Phosphate 12 MMOL in Sodium Chloride 0.9% 100 ML IVPB SCH (06:45)
[2018-05-29] MEDS: OLANZapine 5 MG TAB PO SCH (07:49)
[2018-05-29] MEDS: Gabapentin 300 MG CAP PO SCH ×3 (07:49→21:22)
[2018-05-29] MEDS: Vancomycin HCl 500 MG in Sodium Chloride 0.9% 100 ML IVPB SCH ×2 (08:46→15:35)
[2018-05-29] MEDS ORDERED: Vancomycin HCl 0.75 GM in Sodium Chloride 0.9% 250 ML 250 ML IVPB SCH (09:00)
[2018-05-29] MEDS: Micafungin 100 MG in Sodium Chloride 0.9% 100 ML IVPB SCH (12:48)
[2018-05-29] MEDS: FLUoxetine HCl 20 MG CAP PO SCH (21:22)
[2018-05-29] MEDS: OLANZapine 2.5 MG TAB PO SCH (21:22)
[2018-05-29] MEDS: Acetaminophen 325 MG TAB PO PRN (21:23)
[2018-05-29 23:10] LABS: Vancomycin, Trough 10.4 ug/mL
[2018-05-30] MEDS: Vancomycin HCl 750 MG in Sodium Chloride 0.9% 250 ML 250 ML IVPB SCH ×3 (00:26→15:00)
[2018-05-30] MEDS: Melatonin 3 MG TAB PO PRN (01:40)
[2018-05-30 05:51] LABS: ALT (SGPT) 107 U/L (8-55); AST (SGOT) 103 U/L (5-34); Alkaline Phosphatase 137 U/L (40-150); Anion Gap 10 mmol/L (10-20); BUN (Urea Nitrogen) 9 mg/dL (7.0-18.7); Bilirubin, Total 0.3 mg/dL (0.2-1.2); Calc. Creatinine Clearance 76 mL/min (70-130); Calcium 8.6 mg/dL (7.8-10.44); Carbon Dioxide 25 mmol/L (22-29); Chloride 113 mmol/L (98-107); Estimated GFR-MDRD Greater than 90; Globulin 2.4 g/dL (2.4-3.5); Glucose 90 mg/dL (70-105); Potassium 3.4 mmol/L (3.5-5.1); Protein, Total 5.4 g/dL (6.0-8.3); Sodium 145 mmol/L (136-145)
[2018-05-30 06:02] LABS: Band 16 % (5-11); Eosinophils 2 % (0-10); Hemoglobin 8.9 g/dL (12.0-16.0); Large Platelets SLIGHT; Lymphocytes 19 % (21-51); MDiff Complete? YES; Mean Corpuscular HGB CONC 32.1 g/dL (32.0-36.0); Mean Corpuscular Hemoglobin 30.2 pg (27.0-31.0); Mean Corpuscular Volume 94.2 fL (78.0-98.0); Mean Platelet Volume 13.9 fL (7.4-10.4); Monocytes 12 % (0-10); Neutrophil 49 % (42-75); PLT Morphology Comment Appears Decreased; Platelet Count 51 thou/uL (130-400); RBC Distribution Width 13.6 % (11.5-14.5); Reactive Lymphocytes 2 % (0-10); Red Blood Cell (RBC) Count 2.93 mill/uL (4.20-5.40); White Blood Cell (WBC) Count 1.9 thou/uL (4.8-10.8)
[2018-05-30 06:30] LABS: Magnesium 1.9 mg/dL (1.6-2.6); Phosphorus 2.9 mg/dL (2.3-4.7)
[2018-05-30] MEDS: Gabapentin 300 MG CAP PO SCH ×3 (08:14→21:42)
[2018-05-30] MEDS ORDERED: Potassium Phosphate 12 MMOL in Sodium Chloride 0.9% 100 ML IVPB SCH (08:15)
[2018-05-30] MEDS: OLANZapine 5 MG TAB PO SCH (08:18)
--- NOTE | 2018-05-30 08:51 | PDOC.FM ---
- Subjective Subjective: Patient reports not feeling well this morning, having night sweats all night and body aches. She reports keeping down 1 meal yesterday but purged the rest and per nursing staff purged 3x overnight. Patient is resistant to NG tube today. - Objective MAR Reviewed: Yes Vital Signs & Weight: Vital Signs (12 hours) Temp Pulse Resp BP BP BP Pulse Ox 05/30/18 06:00 98.0 F 66 14 99/67 96/68 89/54 L 98 05/30/18 04:00 97.9 F 05/30/18 00:00 98.1 F Weight Admit Weight 36.514 kg Weight 40.823 kg I&O: 05/29/18 05/30/18 05/31/18 06:59 06:59 06:59 Intake Total 360 1930 Balance 360 1930 Result Diagrams: 05/30/18 04:47 05/30/18 04:47 <Alethea Jeter - Last Filed: 05/30/18 08:49> - Objective Vital Signs & Weight: Vital Signs (12 hours) Temp Pulse Resp BP BP Pulse Ox 05/30/18 20:00 98.0 F 74 18 91/60 97 05/30/18 16:00 97.7 F 86 16 92/53 L 97 05/30/18 12:00 97.8 F 68 16 87/51 L 97 Weight Admit Weight 36.514 kg Weight 40.823 kg I&O: 05/29/18 05/30/18 05/31/18 06:59 06:59 06:59 Intake Total 360 1930 1600 Output Total 1000 Balance 360 1930 600 Result Diagrams: 05/30/18 04:47 05/30/18 04:47 <Don Lu - Last Filed: 05/30/18 21:53> Phys Exam - Physical Examination cachectic, ill-appearing, sweaty HEENT: moist MMs Respiratory: no wheezing, no rales, clear to auscultation bilateral Cardiovascular: RRR, no significant murmur Gastrointestinal: soft, non-tender Musculoskeletal: no edema Neurological: moves all 4 limbs Psychiatric: A&O x 3 <Alethea Jeter - Last Filed: 05/30/18 08:49> Dx/Plan (1) SIRS (systemic inflammatory response syndrome) Code(s): R65.10 - SIRS OF NON-INFECTIOUS ORIGIN W/O ACUTE ORGAN DYSFUNCTION Status: Acute (2) Malnutrition due to starvation Code(s): E46 - UNSPECIFIED PROTEIN-CALORIE MALNUTRITION Status: Acute (3) Anorexia nervosa with bulimia Code(s): F50.02 - ANOREXIA NERVOSA, BINGE EATING/PURGING TYPE Status: Acute (4) Anxiety Code(s): F41.9 - ANXIETY DISORDER, UNSPECIFIED Status: Acute (5) Depression Code(s): F32.9 - MAJOR DEPRESSIVE DISORDER, SINGLE EPISODE, UNSPECIFIED Status : Acute Qualifiers: Depression Type: major depressive disorder Major depression recurrence: unspecified whether recurrent Active/Remission status: remission status unspecified Qualified Code(s): F32.9 - Major depressive disorder, single episode, unspecified (6) Femur fracture, left Code(s): S72.92XA - UNSP FRACTURE OF LEFT FEMUR, INIT ENCNTR FOR CLOSED FRACTURE Status: Acute Qualifiers: Fracture alignment: nondisplaced (7) Osteoporosis Code(s): M81.0 - AGE-RELATED OSTEOPOROSIS W/O CURRENT PATHOLOGICAL FRACTURE Status: Acute Qualifiers: Osteoporosis type: unspecified Presence of current pathological fracture: unspecified Qualified Code(s): M81.0 - Age-related osteoporosis without current pathological fracture (8) Vitamin D deficiency Code(s): E55.9 - VITAMIN D DEFICIENCY, UNSPECIFIED Status: Acute (9) HFrEF (heart failure with reduced ejection fraction) Code(s): I50.20 - UNSPECIFIED SYSTOLIC (CONGESTIVE) HEART FAILURE Status: Resolved Qualifiers: Heart failure chronicity: unspecified Qualified Code(s): I50.20 - Unspecified systolic (congestive) heart failure (10) Borderline personality disorder Code(s): F60.3 - BORDERLINE PERSONALITY DISORDER Status: Acute - Plan Plan: Sepsis 2/2 PICC Line infection with Staph Hominus - continues to spike fevers, WBC 1.9 today - PICC line pulled 05/29 and sent for culture, positive for staph hominus as well as 2/2 blood cultures - consulted higinio Perez recs - continue IV Vancomycin, increased dose to 750mg q8h today Elevated Liver Enzymes - downtrended Concern for Refeeding Syndrome - Phos downtrended from 4.6--> 3.2-->3.7-->2.9 - Mag 1.9 today - replace both - consider NGtube feeds today Thrombocytopenia - plt 51 today - d/c lovenox for now Malnutrition 2/2 Anorexia -Patient with h/o longstanding anorexia, binging/purging type, but had acute worsening with decline in BMI - weight today 39kg, improved from admission - Olanzapine - laborer pullet farm following, discuss possible NG tube feeds today - plan is for placement at [facility] in [place] pending sepsis recovery and patient agreeableness. - Brother is now MPOA and can help facilitate her medical care. He is agreeable to placing more restrictions to improve her behavior although primary concern at this time is sepsis. Left femur fracture- stable - Fall in January 2018, was supposed to follow with ortho - Dr. Funez consulted, Rec'd walker, f/u in 6-8 wks Osteoporosis - h/o multiple fractures, likely 2/2 chronic malnutrition. Pt with low vit D. - Vit D supplementation Multiple Psych DO's: Depression, Anxiety, and Borderline Personality DO - continue Prozac and Olanzapine GERD - continue protonix DVT PPx: SCD IVF: SL Code status: Full dispo: Discuss tube feeds via NG tube today. Awaiting placement at [email or web address] Will continue with current restrictions to provide nutritional rehabilitation, although patient has been noncompliant with all restrictions and continues to purge. Plan for interdisciplinary rounds this morning to discuss again. Will keep brothJAYDA ramirez informed. <Alethea Jeter - Last Filed: 05/30/18 08:49> Attending Addendum - Attending Addendum Date/Time: 05/30/18 5426 I personally evaluated the patient and discussed the management with Dr. Jeter. I agree with and repeated the History, Examination, Assessment and Plan documented above with any addition or exceptions noted below. Marcos and Keesha on interdiscplinary rounds today. Will continue to work to restrict purging despite previously noted limitations. Patient giving various answers concerning NGT. After family discussion and family visiting with patient will attempt placement of NGT in the morning. Again, will not restrain or sedate patient for placement and family is in agreement with this. My understanding is that [facility] requires the patient to be amenable to an NGT, and so her lack of acceptance may be grounds for being ineligible for placement there, in which case long term placement with possible hospice may be, unfortunately, required as we will have no other options. Agree with medical management discussed above. <Don Lu - Last Filed: 05/30/18 21:53>
[2018-05-30] MEDS ORDERED: CEFAZOLIN/Water 2 GM/20 ML SYRINGE SLOW IVP SCH (15:45)
--- NOTE | 2018-05-30 16:08 | PRG ---
DATE OF SERVICE: 05/30/2018 SUBJECTIVE: Patient is feeling better. She was right in front of the machine dispensing candy in e patient area. She denies any headaches, no more vomiting, no chest pain, no abdominal pain, no az rrhea. OBJECTIVE: VITAL SIGNS: She has been afebrile since yesterday, BP 87/51, pulse 68, respirations 16. GENERAL: Chronically ill appearing. Wasting syndrome. Appears in no distress, oriented. HEENT: Ocular movements conjugate. LUNGS: Clear. CARDIOVASCULAR: S1, S2, regular rate. ABDOMEN: Soft. EXTREMITIES: Moves extremities equally. LABORATORY DATA: White cell count 1.9, hemoglobin 8.9, platelets 51,000 with 49% neutrophils and 16% bands. Sodium 145, creatinine 0.6, AST 103, ALT 107, albumin 3.0. Urinalysis was normal. Microbio logy showed two blood cultures with Staphylococcus hominis and the catheter tip from the PICC line wi th the same organism. ASSESSMENT AND DISCUSSION: Anorexia nervosa TPN through PICC line and new onset of fever over the pa st few days. Patient has proven Staph hominis PICC line infection. PICC line has been removed to no w complete treatment with IV cefazolin or Rocephin for 1 week after the last negative blood cultures.
[2018-05-30] MEDS: CEFAZOLIN 2 GM/50 ML-DEXTROSE 2 GM in Premix Bag 1 BAG IVPB SCH (17:44)
[2018-05-30] MEDS: FLUoxetine HCl 20 MG CAP PO SCH (21:42)
[2018-05-30] MEDS: OLANZapine 2.5 MG TAB PO SCH (21:42)
[2018-05-31] MEDS: CEFAZOLIN 2 GM/50 ML-DEXTROSE 2 GM in Premix Bag 1 BAG IVPB SCH ×4 (00:14→23:15)
[2018-05-31] MEDS: Acetaminophen 325 MG TAB PO PRN (00:16)
[2018-05-31] MEDS: Melatonin 3 MG TAB PO PRN (00:16)
[2018-05-31 04:54] LABS: #Eosinphils 0.1 thou/uL (0.0-0.7); #Lymphocytes 0.6 thou/uL (1.20-3.40); #Monocytes 0.4 thou/uL (0.11-0.59); #Neutrophils 1.6 thou/uL (1.40-6.50); %Eosinophils 2.2 % (0.0-10.0); %Lymphocytes 23.5 % (21.0-51.0); %Monocytes 14.7 % (0.0-10.0); %Neutrophils 59.7 % (42.0-75.0); Hemoglobin 8.9 g/dL (12.0-16.0); Mean Corpuscular HGB CONC 31.7 g/dL (32.0-36.0); Mean Corpuscular Hemoglobin 30.1 pg (27.0-31.0); Mean Corpuscular Volume 94.8 fL (78.0-98.0); Platelet Count 69 thou/uL (130-400); RBC Distribution Width 13.6 % (11.5-14.5); Red Blood Cell (RBC) Count 2.97 mill/uL (4.20-5.40); White Blood Cell (WBC) Count 2.7 thou/uL (4.8-10.8)
[2018-05-31 05:05] LABS: ALT (SGPT) 75 U/L (8-55); AST (SGOT) 57 U/L (5-34); Alkaline Phosphatase 112 U/L (40-150); Anion Gap 10 mmol/L (10-20); BUN (Urea Nitrogen) 9 mg/dL (7.0-18.7); Bilirubin, Total 0.3 mg/dL (0.2-1.2); Calc. Creatinine Clearance 77 mL/min (70-130); Calcium 8.6 mg/dL (7.8-10.44); Carbon Dioxide 27 mmol/L (22-29); Chloride 111 mmol/L (98-107); Estimated GFR-MDRD Greater than 90; Globulin 2.3 g/dL (2.4-3.5); Glucose 83 mg/dL (70-105); Potassium 3.6 mmol/L (3.5-5.1); Protein, Total 5.3 g/dL (6.0-8.3); Sodium 144 mmol/L (136-145)
[2018-05-31 05:07] LABS: Cardiac Risk 2.4 (Less than 4.5); Magnesium 1.9 mg/dL (1.6-2.6); Phosphorus 4.2 mg/dL (2.3-4.7)
[2018-05-31] MEDS: Gabapentin 300 MG CAP PO SCH ×3 (08:22→21:19)
[2018-05-31] MEDS: OLANZapine 5 MG TAB PO SCH (08:22)
--- NOTE | 2018-05-31 09:29 | PDOC.FM ---
- Subjective Subjective: Patient is resting this morning. She is somnolent and reports again that she is just very tired of "all this." She is hesitant about NGtube placement today. She reports night sweats although no documented fevers overnight. Nursing staff reports overnight sitter allowed her to go to the cafe while going to smoke. Unsure if she ate a pizza overnight or not. - Objective MAR Reviewed: Yes Vital Signs & Weight: Vital Signs (12 hours) Temp Pulse Resp BP Pulse Ox 05/31/18 08:00 97.9 F 62 18 82/57 L 97 05/31/18 00:00 98.7 F Weight Admit Weight 36.514 kg Weight 40.823 kg I&O: 05/30/18 05/31/18 06/01/18 06:59 06:59 06:59 Intake Total 1929 2660 Output Total 1000 Balance 1929 1660 Result Diagrams: 05/31/18 03:58 05/31/18 03:58 <Alethea Jeter - Last Filed: 05/31/18 12:51> - Objective Vital Signs & Weight: Vital Signs (12 hours) Temp Pulse Resp BP Pulse Ox 05/31/18 20:00 97.9 F 58 L 18 102/65 93 L 05/31/18 16:00 97.9 F 61 18 93/61 94 L 05/31/18 11:21 97.6 F 68 16 84/48 L 96 Weight Admit Weight 36.514 kg Weight 39.916 kg I&O: 05/30/18 05/31/18 06/01/18 06:59 06:59 06:59 Intake Total 0 2660 820 Output Total 1000 Balance 1929 1660 820 Result Diagrams: 05/31/18 03:58 05/31/18 03:58 <Don Lu - Last Filed: 05/31/18 21:55> Phys Exam - Physical Examination Constitutional: NAD cachectic HEENT: moist MMs Respiratory: no wheezing, no rales, clear to auscultation bilateral Cardiovascular: RRR, no significant murmur Neurological: moves all 4 limbs Psychiatric: A&O x 3 <Alethea Jeter - Last Filed: 05/31/18 12:51> Dx/Plan (1) SIRS (systemic inflammatory response syndrome) Code(s): R65.10 - SIRS OF NON-INFECTIOUS ORIGIN W/O ACUTE ORGAN DYSFUNCTION Status: Acute (2) Malnutrition due to starvation Code(s): E46 - UNSPECIFIED PROTEIN-CALORIE MALNUTRITION Status: Acute (3) Anorexia nervosa with bulimia Code(s): F50.02 - ANOREXIA NERVOSA, BINGE EATING/PURGING TYPE Status: Acute (4) Anxiety Code(s): F41.9 - ANXIETY DISORDER, UNSPECIFIED Status: Acute (5) Depression Code(s): F32.9 - MAJOR DEPRESSIVE DISORDER, SINGLE EPISODE, UNSPECIFIED Status : Acute Qualifiers: Depression Type: major depressive disorder Major depression recurrence: unspecified whether recurrent Active/Remission status: remission status unspecified Qualified Code(s): F32.9 - Major depressive disorder, single episode, unspecified (6) Femur fracture, left Code(s): S72.92XA - UNSP FRACTURE OF LEFT FEMUR, INIT ENCNTR FOR CLOSED FRACTURE Status: Acute Qualifiers: Fracture alignment: nondisplaced (7) Osteoporosis Code(s): M81.0 - AGE-RELATED OSTEOPOROSIS W/O CURRENT PATHOLOGICAL FRACTURE Status: Acute Qualifiers: Osteoporosis type: unspecified Presence of current pathological fracture: unspecified Qualified Code(s): M81.0 - Age-related osteoporosis without current pathological fracture (8) Vitamin D deficiency Code(s): E55.9 - VITAMIN D DEFICIENCY, UNSPECIFIED Status: Acute (9) HFrEF (heart failure with reduced ejection fraction) Code(s): I50.20 - UNSPECIFIED SYSTOLIC (CONGESTIVE) HEART FAILURE Status: Resolved Qualifiers: Heart failure chronicity: unspecified Qualified Code(s): I50.20 - Unspecified systolic (congestive) heart failure (10) Borderline personality disorder Code(s): F60.3 - BORDERLINE PERSONALITY DISORDER Status: Acute - Plan Plan: Sepsis 2/2 PICC Line infection with Staph Hominus - continues to spike fevers, WBC 1.9 today - PICC line pulled 05/29 and sent for culture, positive for staph hominus as well as 2/2 blood cultures - consulted higinio Perez - switch to Cefazolin 2gm q8h Elevated Liver Enzymes - downtrended Concern for Refeeding Syndrome, improved - Phos downtrended from 4.6--> 3.2-->3.7-->2.9-->4.2 - Mag 1.9 today - NGtube placement today Thrombocytopenia - improving - d/c lovenox for now Malnutrition 2/2 Anorexia -Patient with h/o longstanding anorexia, binging/purging type, but had acute worsening with decline in BMI - weight today 39kg, improved from admission - Olanzapine - bilingual loan processor following, discuss possible NG tube feeds today - plan is for placement at [facility] in [place] pending sepsis recovery and patient agreeableness. - Brother is now MPOA and can help facilitate her medical care. He is agreeable to placing more restrictions to improve her behavior although primary concern at this time is sepsis. Left femur fracture- stable - Fall in January 2018, was supposed to follow with ortho - Dr. Funez consulted, Rec'd walker, f/u in 6-8 wks Osteoporosis - h/o multiple fractures, likely 2/2 chronic malnutrition. Pt with low vit D. - Vit D supplementation Multiple Psych DO's: Depression, Anxiety, and Borderline Personality DO - continue Prozac and Olanzapine GERD - continue protonix DVT PPx: SCD IVF: SL Code status: Full dispo: NG tube today. Plan for NPO status and full nutritional rehabilitation via tube feeds with dietary recs. Still pending placement at [facility] in [place] set for possibly the . <Alethea Jeter - Last Filed: 05/31/18 12:51> Attending Addendum - Attending Addendum Date/Time: 05/31/18 737 I personally evaluated the patient and discussed the management with Dr. Jeter. I agree with and repeated the History, Examination, Assessment and Plan documented above with any addition or exceptions noted below. In light of the CLABSI please note that patient was seen manipulating pump during her TPN treatment, and when I went to examine her after being told about her fever the distal half of the PICC line dressing was peeled back. NGT placement was successful. Hold PO and proceed with TF. <Don Lu - Last Filed: 05/31/18 21:55>
[2018-05-31] MEDS ORDERED: Lidocaine 2% Jelly 5 ML TUBE TOP SCH (11:45)
[2018-05-31] MEDS ORDERED: Chloraseptic Spray 180 ml Bottle PO SCH (11:45)
--- NOTE | 2018-05-31 11:55 | PDOC.EVN ---
Event Note - Event Note Event Note: Patient purged all her breakfast. Will attempt NGT placement with lido jelly + spray. As previously mentioned and discussed in detail with family will not restrain her for this. She understands that if she is unable to accept the NGT that she will likely not be a candidate for [facility].
--- NOTE | 2018-05-31 14:46 | RAD ---
RADIOGRAPH CHEST 1 VIEW: Date: 05-31-18 Time: 1:52 p.m. HISTORY: Dobbhoff tube placement in 43-year-old female. COMPARISON: 05-28-18 FINDINGS: There is a new Dobbhoff feeding tube with sideport in the vicinity of the esophogastric junction and distal tip probably in the proximal stomach. Cardiomediastinal silhouette is normal. There is bilater al hyperinflation suggestive of COPD. Faint, patchy, ill-defined nodular density at the left upper lo be is again noted. There is an old healed fracture deformity of the left humerus at the junction betw een the proximal and middle thirds of the diaphysis. No pulmonary edema or consolidation. IMPRESSION: 1. Interval placement of Dobbhoff feeding tube into the proximal stomach. 2. Left upper lobe pulmonary nodule. Recommend chest CT on non-emergent basis. 3. Old, healed fracture deformity of the left proximal/mid humeral shaft. 4. Hyperinflation suggestive of emphysema. JN POS: CET
[2018-05-31] MEDS: OLANZapine 2.5 MG TAB PO SCH (21:19)
[2018-05-31] MEDS: FLUoxetine HCl 20 MG CAP PO SCH (21:19)
[2018-06-01 06:07] LABS: #Eosinphils 0.1 thou/uL (0.0-0.7); #Lymphocytes 0.7 thou/uL (1.20-3.40); #Monocytes 0.4 thou/uL (0.11-0.59); #Neutrophils 1.7 thou/uL (1.40-6.50); %Basophils 0.5 % (0.0-1.0); %Eosinophils 1.8 % (0.0-10.0); %Lymphocytes 24.9 % (21.0-51.0); %Monocytes 12.7 % (0.0-10.0); Hemoglobin 9.3 g/dL (12.0-16.0); Mean Corpuscular Hemoglobin 30.5 pg (27.0-31.0); Mean Corpuscular Volume 95.3 fL (78.0-98.0); Platelet Count 81 thou/uL (130-400); RBC Distribution Width 13.7 % (11.5-14.5); Red Blood Cell (RBC) Count 3.04 mill/uL (4.20-5.40); White Blood Cell (WBC) Count 2.9 thou/uL (4.8-10.8)
[2018-06-01 06:08] LABS: Magnesium 1.8 mg/dL (1.6-2.6); Phosphorus 3.5 mg/dL (2.3-4.7)
[2018-06-01 06:17] LABS: ALT (SGPT) 38 U/L (8-55); AST (SGOT) 40 U/L (5-34); Albumin 2.9 g/dL (3.5-5.0); Alkaline Phosphatase 113 U/L (40-150); Anion Gap 10 mmol/L (10-20); BUN (Urea Nitrogen) 10 mg/dL (7.0-18.7); Bilirubin, Total 0.3 mg/dL (0.2-1.2); Calc. Creatinine Clearance 74 mL/min (70-130); Calcium 8.5 mg/dL (7.8-10.44); Carbon Dioxide 29 mmol/L (22-29); Chloride 108 mmol/L (98-107); Estimated GFR-MDRD Greater than 90; Globulin 2.5 g/dL (2.4-3.5); Glucose 83 mg/dL (70-105); Potassium 3.8 mmol/L (3.5-5.1); Protein, Total 5.4 g/dL (6.0-8.3); Sodium 143 mmol/L (136-145)
--- NOTE | 2018-06-01 07:30 | PDOC.FM ---
- Subjective Subjective: Patient is very quite and withdrawn this morning. Nursing staff reports no events overnight just increased depressed affect since NG tube placement yesterday. She has no complaints today. Denies fever/chills/nightsweats, n/c/d , and abd pain. - Objective MAR Reviewed: Yes Vital Signs & Weight: Vital Signs (12 hours) Temp Pulse Resp BP Pulse Ox 06/01/18 04:00 98.0 F 06/01/18 00:00 98.1 F 05/31/18 21:19 93 L 05/31/18 20:00 97.9 F 58 L 18 102/65 93 L Weight Admit Weight 36.514 kg Weight 39.916 kg I&O: 05/31/18 06/01/18 06/02/18 06:59 06:59 06:59 Intake Total 2660 1430 Output Total 1000 Balance 1660 1430 Result Diagrams: 06/01/18 04:49 06/01/18 04:49 <Alethea Jeter - Last Filed: 06/01/18 12:19> - Objective Vital Signs & Weight: Vital Signs (12 hours) Temp Pulse Resp BP BP Pulse Ox 06/01/18 07:36 98.3 F 66 20 95/61 93/58 L 93 L Weight Admit Weight 36.514 kg Weight 39.009 kg I&O: 05/31/18 06/01/18 06/02/18 06:59 06:59 06:59 Intake Total 2660 1430 Output Total 1000 Balance 1660 1430 Result Diagrams: 06/01/18 04:49 06/01/18 04:49 <Don Lu - Last Filed: 06/01/18 16:25> Phys Exam - Physical Examination Constitutional: NAD chacectic Respiratory: clear to auscultation bilateral Cardiovascular: RRR Musculoskeletal: no edema Psychiatric: A&O x 3 Deviation from normal: depressed affect, depressed mood, withdrawn <Alethea Jeter - Last Filed: 06/01/18 12:19> Dx/Plan (1) Sepsis Code(s): A41.9 - SEPSIS, UNSPECIFIED ORGANISM Status: Resolved (2) Malnutrition due to starvation Code(s): E46 - UNSPECIFIED PROTEIN-CALORIE MALNUTRITION Status: Acute (3) Anorexia nervosa with bulimia Code(s): F50.02 - ANOREXIA NERVOSA, BINGE EATING/PURGING TYPE Status: Acute (4) Anxiety Code(s): F41.9 - ANXIETY DISORDER, UNSPECIFIED Status: Acute (5) Depression Code(s): F32.9 - MAJOR DEPRESSIVE DISORDER, SINGLE EPISODE, UNSPECIFIED Status : Acute Qualifiers: Depression Type: major depressive disorder Major depression recurrence: unspecified whether recurrent Active/Remission status: remission status unspecified Qualified Code(s): F32.9 - Major depressive disorder, single episode, unspecified (6) Femur fracture, left Code(s): S72.92XA - UNSP FRACTURE OF LEFT FEMUR, INIT ENCNTR FOR CLOSED FRACTURE Status: Acute Qualifiers: Fracture alignment: nondisplaced (7) Osteoporosis Code(s): M81.0 - AGE-RELATED OSTEOPOROSIS W/O CURRENT PATHOLOGICAL FRACTURE Status: Acute Qualifiers: Osteoporosis type: unspecified Presence of current pathological fracture: unspecified Qualified Code(s): M81.0 - Age-related osteoporosis without current pathological fracture (8) Vitamin D deficiency Code(s): E55.9 - VITAMIN D DEFICIENCY, UNSPECIFIED Status: Acute (9) HFrEF (heart failure with reduced ejection fraction) Code(s): I50.20 - UNSPECIFIED SYSTOLIC (CONGESTIVE) HEART FAILURE Status: Resolved Qualifiers: Heart failure chronicity: unspecified Qualified Code(s): I50.20 - Unspecified systolic (congestive) heart failure (10) Borderline personality disorder Code(s): F60.3 - BORDERLINE PERSONALITY DISORDER Status: Acute - Plan Plan: Sepsis 2/2 PICC Line infection with Staph Hominus - afebrile for 48h, WBC improving - PICC line pulled 05/29 and sent for culture, positive for staph hominus as well as 2/2 blood cultures positive staph hominus, repeat cultures negative x48h - consulted higinio Perezs - continue Cefazolin 2gm q8h, stop date 06/06 Malnutrition 2/2 Anorexia -Patient with h/o longstanding anorexia, binging/purging type, but had acute worsening with decline in BMI - weight today 39kg, improved from admission - Olanzapine - wind operations manager following, NG tube feeds increasing daily - plan is for placement at [facility] in [place] - Brother is now MPOA and can help facilitate her medical care. Depression with Suicidal Ideation - has mentioned fleeting suicidal ideation - sitter in place - increased depressed affect today, will try to open windows and continue encouragement. Left femur fracture- stable - Fall in January 2018, was supposed to follow with ortho - Dr. Funez consulted, Rec'd walker, f/u in 6-8 wks Osteoporosis - h/o multiple fractures, likely 2/2 chronic malnutrition. Pt with low vit D. - Vit D supplementation Multiple Psych DO's: Depression, Anxiety, and Borderline Personality DO - continue Prozac and Olanzapine GERD - continue protonix Elevated Liver Enzymes - downtrended Thrombocytopenia - improving - refuses lovenox, continue SCD's DVT PPx: SCD IVF: SL Code status: Full dispo: Continue tube feeds and NPO status for nutritional rehabilitation via tube feeds with dietary recs. Still pending placement at [facility] in [place] set for possibly the . <Alethea Jeter - Last Filed: 06/01/18 12:19> Attending Addendum - Attending Addendum Date/Time: 06/01/18 6515 I personally evaluated the patient and discussed the management with Dr. Jeter. I agree with and repeated the History, Examination, Assessment and Plan documented above with any addition or exceptions noted below. Patient somewhat more depressed this AM. Seeing mother today. Multidisciplinary rounds. Plan on keeping for IVABx while here. Needs to be more activated during the day - need to fix the curtains, lights on during the day, outside TID if possible. We will continue with NGT feeds and hold PO. She has not been purging around the tube thus far. <Don Lu - Last Filed: 06/01/18 16:25>
[2018-06-01] MEDS: Gabapentin 300 MG CAP PO SCH ×3 (08:55→21:24)
[2018-06-01] MEDS: CEFAZOLIN 2 GM/50 ML-DEXTROSE 2 GM in Premix Bag 1 BAG IVPB SCH ×3 (08:56→23:41)
[2018-06-01] MEDS: OLANZapine 5 MG TAB PO SCH (08:56)
[2018-06-01] MEDS: FLUoxetine HCl 20 MG CAP PO SCH (21:24)
[2018-06-01] MEDS: OLANZapine 2.5 MG TAB PO SCH (21:24)
[2018-06-02] MEDS: Melatonin 3 MG TAB PO PRN (01:34)
[2018-06-02 04:25] LABS: #Eosinphils 0.1 thou/uL (0.0-0.7); #Lymphocytes 0.8 thou/uL (1.20-3.40); #Monocytes 0.5 thou/uL (0.11-0.59); #Neutrophils 2.1 thou/uL (1.40-6.50); %Eosinophils 1.6 % (0.0-10.0); %Lymphocytes 23.8 % (21.0-51.0); %Monocytes 14.8 % (0.0-10.0); %Neutrophils 59.7 % (42.0-75.0); Hemoglobin 9.2 g/dL (12.0-16.0); Mean Corpuscular HGB CONC 32.2 g/dL (32.0-36.0); Mean Corpuscular Hemoglobin 30.5 pg (27.0-31.0); Mean Corpuscular Volume 94.7 fL (78.0-98.0); Platelet Count 98 thou/uL (130-400); RBC Distribution Width 13.4 % (11.5-14.5); Red Blood Cell (RBC) Count 3.01 mill/uL (4.20-5.40); White Blood Cell (WBC) Count 3.5 thou/uL (4.8-10.8)
[2018-06-02 04:35] LABS: ALT (SGPT) 21 U/L (8-55); AST (SGOT) 31 U/L (5-34); Albumin 3.2 g/dL (3.5-5.0); Alkaline Phosphatase 127 U/L (40-150); Anion Gap 10 mmol/L (10-20); BUN (Urea Nitrogen) 11 mg/dL (7.0-18.7); Bilirubin, Total 0.3 mg/dL (0.2-1.2); Calc. Creatinine Clearance 71 mL/min (70-130); Calcium 8.6 mg/dL (7.8-10.44); Carbon Dioxide 31 mmol/L (22-29); Chloride 107 mmol/L (98-107); Estimated GFR-MDRD Greater than 90; Globulin 2.5 g/dL (2.4-3.5); Glucose 100 mg/dL (70-105); Potassium 3.9 mmol/L (3.5-5.1); Protein, Total 5.7 g/dL (6.0-8.3); Sodium 144 mmol/L (136-145)
--- NOTE | 2018-06-02 06:22 | PDOC.FM ---
- Subjective Subjective: Patient's mood is much improved today after she binged on vending machine snacks and purged overnight. She had been told she was not to eat or drink anything and they again confirmed this with the night team last night because she was wanting a snack. After being told no she went to the snack machine with sitter. NG tube was dislodged and removed. This morning, there are empty snack bags on the floor and her bedside table. She reports she has no further snacks and is willing to have the NG tube replaced. She was able to see her mother yesterday and reports it was nice to see her. She has no pains today and denies fever/chills. - Objective MAR Reviewed: Yes Vital Signs & Weight: Vital Signs (12 hours) Temp Pulse Resp BP Pulse Ox 06/01/18 21:24 96 06/01/18 20:00 98.4 F 63 20 93/57 L 96 Weight Admit Weight 36.514 kg Weight 39.009 kg I&O: 05/31/18 06/01/18 06/02/18 06:59 06:59 06:59 Intake Total 2660 1430 870 Output Total 1000 Balance 1660 1430 870 Result Diagrams: 06/02/18 03:53 06/02/18 03:53 <Alethea Jeter - Last Filed: 06/02/18 08:32> - Objective Vital Signs & Weight: Vital Signs (12 hours) Temp Pulse Resp BP Pulse Ox 06/02/18 08:00 98.0 F 55 L 16 97/52 L 96 Weight Admit Weight 36.514 kg Weight 39.463 kg I&O: 06/01/18 06/02/18 06/03/18 06:59 06:59 06:59 Intake Total 1430 870 Balance 1430 870 Result Diagrams: 06/02/18 03:53 06/02/18 03:53 <Don Lu - Last Filed: 06/02/18 10:57> Phys Exam - Physical Examination Constitutional: NAD HEENT: moist MMs Respiratory: no wheezing, no rales, clear to auscultation bilateral Cardiovascular: RRR, no significant murmur Musculoskeletal: no edema Neurological: moves all 4 limbs <Alethea Jeter - Last Filed: 06/02/18 08:32> Dx/Plan (1) Sepsis Code(s): A41.9 - SEPSIS, UNSPECIFIED ORGANISM Status: Resolved (2) Malnutrition due to starvation Code(s): E46 - UNSPECIFIED PROTEIN-CALORIE MALNUTRITION Status: Acute (3) Anorexia nervosa with bulimia Code(s): F50.02 - ANOREXIA NERVOSA, BINGE EATING/PURGING TYPE Status: Acute (4) Anxiety Code(s): F41.9 - ANXIETY DISORDER, UNSPECIFIED Status: Acute (5) Depression Code(s): F32.9 - MAJOR DEPRESSIVE DISORDER, SINGLE EPISODE, UNSPECIFIED Status : Acute Qualifiers: Depression Type: major depressive disorder Major depression recurrence: unspecified whether recurrent Active/Remission status: remission status unspecified Qualified Code(s): F32.9 - Major depressive disorder, single episode, unspecified (6) Femur fracture, left Code(s): S72.92XA - UNSP FRACTURE OF LEFT FEMUR, INIT ENCNTR FOR CLOSED FRACTURE Status: Acute Qualifiers: Fracture alignment: nondisplaced (7) Osteoporosis Code(s): M81.0 - AGE-RELATED OSTEOPOROSIS W/O CURRENT PATHOLOGICAL FRACTURE Status: Acute Qualifiers: Osteoporosis type: unspecified Presence of current pathological fracture: unspecified Qualified Code(s): M81.0 - Age-related osteoporosis without current pathological fracture (8) Vitamin D deficiency Code(s): E55.9 - VITAMIN D DEFICIENCY, UNSPECIFIED Status: Acute (9) HFrEF (heart failure with reduced ejection fraction) Code(s): I50.20 - UNSPECIFIED SYSTOLIC (CONGESTIVE) HEART FAILURE Status: Resolved Qualifiers: Heart failure chronicity: unspecified Qualified Code(s): I50.20 - Unspecified systolic (congestive) heart failure (10) Borderline personality disorder Code(s): F60.3 - BORDERLINE PERSONALITY DISORDER Status: Acute - Plan Plan: Malnutrition 2/2 Anorexia - Patient with h/o longstanding anorexia, binging/purging type, but had acute worsening with decline in BMI which is why she was admitted - NG tube dislodged after purging overnight, replace today and start back tube feeds - weight pending for today - Olanzapine BID - human services instructor following, appreciate recs - continue daily labs to evaluate for developing refeeding syndrome, replace Mg today. - plan is for placement at [facility] in [place] - Brother is MPOA. Depression with Suicidal Ideation - has mentioned fleeting suicidal ideation - sitter in place PICC Line infection with Staph Hominus, Sepsis resolved - afebrile for > 48h, WBC continues to improve - PICC line pulled 05/29 and sent for culture, positive for staph hominus as well as 2/2 blood cultures positive staph hominus, repeat cultures negative x48h - consulted Ana, higinio recs - continue Cefazolin 2gm q8h, stop date 06/06 Left femur fracture- stable - Fall in January 2018, was supposed to follow with ortho - Dr. Funez consulted, Rec'd walker, f/u in 6-8 wks Osteoporosis - h/o multiple fractures, likely 2/2 chronic malnutrition. Pt with low vit D. - Vit D supplementation Multiple Psych DO's: Depression, Anxiety, and Borderline Personality DO - continue Prozac and Olanzapine GERD - continue protonix Elevated Liver Enzymes - downtrended Thrombocytopenia - improving - refuses lovenox, continue SCD's DVT PPx: SCD IVF: SL Code status: Full dispo: Patient again exhibits noncompliant behaviors. Will attempt to replace NG tube and remove all snacks from room Counseled nursing staff that she is not to go to vending machine, will update sitters as well. Continue to attempt nutritional rehabilitation via tube feeds today with dietary recs. If patient denies, will get ethics consult for discharge to [place] on hospice. Still pending placement at [facility] in [place] set for possibly the . <Alethea Jeter - Last Filed: 06/02/18 08:32> Attending Addendum - Attending Addendum Date/Time: 06/02/18 2346 I personally evaluated the patient and discussed the management with Dr. Jeter. I agree with and repeated the History, Examination, Assessment and Plan documented above with any addition or exceptions noted below. Replace dobhoff. KUB following. Restart TF at previous rate. Reinstructed to not allow food. I discussed with Jose that she has been using binging and purging as a coping mechanism for some time, and we will provide her with her required nutrition and that anxiety is expected when her ability to binge and purge has been taken away. Will follow. <Don Lu - Last Filed: 06/02/18 10:57>
[2018-06-02 08:15] LABS: Phosphorus 3.8 mg/dL (2.3-4.7)
[2018-06-02] MEDS: OLANZapine 5 MG TAB PO SCH (08:52)
[2018-06-02] MEDS: Gabapentin 300 MG CAP PO SCH ×3 (08:52→21:37)
[2018-06-02] MEDS: CEFAZOLIN 2 GM/50 ML-DEXTROSE 2 GM in Premix Bag 1 BAG IVPB SCH ×2 (08:52→16:30)
--- NOTE | 2018-06-02 10:43 | RAD ---
ABDOMEN ONE VIEW: History: Dobbhoff tube placement. FINDINGS/IMPRESSION: The tip of the Dobbhoff tube is in the distal stomach. The bowel gas pattern is unremarkable. Post op changes of metallic hardware is seen in the proximal hips. POS: [facility]
[2018-06-02] MEDS: FLUoxetine HCl 20 MG CAP PO SCH (21:37)
[2018-06-02] MEDS: OLANZapine 2.5 MG TAB PO SCH (21:37)
[2018-06-03] MEDS: CEFAZOLIN 2 GM/50 ML-DEXTROSE 2 GM in Premix Bag 1 BAG IVPB SCH ×4 (00:19→23:56)
[2018-06-03 04:59] LABS: ALT (SGPT) 17 U/L (8-55); AST (SGOT) 37 U/L (5-34); Albumin 3.2 g/dL (3.5-5.0); Alkaline Phosphatase 134 U/L (40-150); Anion Gap 11 mmol/L (10-20); BUN (Urea Nitrogen) 12 mg/dL (7.0-18.7); Bilirubin, Total 0.2 mg/dL (0.2-1.2); Calc. Creatinine Clearance 72 mL/min (70-130); Calcium 8.9 mg/dL (7.8-10.44); Carbon Dioxide 30 mmol/L (22-29); Chloride 106 mmol/L (98-107); Estimated GFR-MDRD Greater than 90; Globulin 2.7 g/dL (2.4-3.5); Glucose 113 mg/dL (70-105); Potassium 3.6 mmol/L (3.5-5.1); Protein, Total 5.9 g/dL (6.0-8.3); Sodium 143 mmol/L (136-145)
[2018-06-03 05:33] LABS: Band 2 % (5-11); Eosinophils 2 % (0-10); Hemoglobin 9.7 g/dL (12.0-16.0); Lymphocytes 38 % (21-51); MDiff Complete? YES; Mean Corpuscular HGB CONC 32.1 g/dL (32.0-36.0); Mean Corpuscular Hemoglobin 30.2 pg (27.0-31.0); Mean Corpuscular Volume 94.2 fL (78.0-98.0); Mean Platelet Volume 12.6 fL (7.4-10.4); Monocytes 7 % (0-10); Myelocyte 1 % (0-0); Neutrophil 49 % (42-75); PLT Morphology Comment Appears Decreased; Platelet Count 121 thou/uL (130-400); RBC Distribution Width 13.8 % (11.5-14.5); Reactive Lymphocytes 1 % (0-10); Red Blood Cell (RBC) Count 3.21 mill/uL (4.20-5.40)
[2018-06-03 05:49] LABS: Phosphorus 3.8 mg/dL (2.3-4.7)
--- NOTE | 2018-06-03 07:10 | PDOC.FM ---
- Subjective Subjective: Patient is in good spirits this morning. She is conversational but withdrawn. OVernight there were no reported events. This am, tube feeds are stopped, patient and sitter deny touching the machine although it is very close to patients bedside within arms reach. Nurse reports feeding was going several minutes ago when she was in there and that a setting must have been changed. Patiet denies n/v/c/d, fever/chills. - Objective MAR Reviewed: Yes Vital Signs & Weight: Vital Signs (12 hours) Temp Pulse Resp BP Pulse Ox 06/02/18 20:00 97.9 F 72 16 92/56 L 93 L Weight Admit Weight 36.514 kg Weight 39.463 kg I&O: 06/02/18 06/03/18 06/04/18 06:59 06:59 06:59 Intake Total 870 1330 Balance 870 1330 Result Diagrams: 06/03/18 03:53 06/03/18 03:53 <Alethea Jeter - Last Filed: 06/03/18 10:41> - Objective Vital Signs & Weight: Vital Signs (12 hours) Temp Pulse Resp BP Pulse Ox 06/03/18 08:00 93 L 06/03/18 07:30 97.9 F 57 L 16 95/62 93 L Weight Admit Weight 36.514 kg Weight 39.463 kg I&O: 06/02/18 06/03/18 06/04/18 06:59 06:59 06:59 Intake Total 870 1330 Balance 870 1330 Result Diagrams: 06/03/18 03:53 06/03/18 03:53 <Don Lu - Last Filed: 06/03/18 14:17> Phys Exam - Physical Examination Constitutional: NAD chachectic HEENT: moist MMs Respiratory: no wheezing, no rales, clear to auscultation bilateral Cardiovascular: RRR, no significant murmur Musculoskeletal: no edema Psychiatric: A&O x 3 <Alethea Jeter - Last Filed: 06/03/18 10:41> Dx/Plan (1) Sepsis Code(s): A41.9 - SEPSIS, UNSPECIFIED ORGANISM Status: Resolved (2) Malnutrition due to starvation Code(s): E46 - UNSPECIFIED PROTEIN-CALORIE MALNUTRITION Status: Acute (3) Anorexia nervosa with bulimia Code(s): F50.02 - ANOREXIA NERVOSA, BINGE EATING/PURGING TYPE Status: Acute (4) Anxiety Code(s): F41.9 - ANXIETY DISORDER, UNSPECIFIED Status: Acute (5) Depression Code(s): F32.9 - MAJOR DEPRESSIVE DISORDER, SINGLE EPISODE, UNSPECIFIED Status : Acute Qualifiers: Depression Type: major depressive disorder Major depression recurrence: unspecified whether recurrent Active/Remission status: remission status unspecified Qualified Code(s): F32.9 - Major depressive disorder, single episode, unspecified (6) Femur fracture, left Code(s): S72.92XA - UNSP FRACTURE OF LEFT FEMUR, INIT ENCNTR FOR CLOSED FRACTURE Status: Acute Qualifiers: Fracture alignment: nondisplaced (7) Osteoporosis Code(s): M81.0 - AGE-RELATED OSTEOPOROSIS W/O CURRENT PATHOLOGICAL FRACTURE Status: Acute Qualifiers: Osteoporosis type: unspecified Presence of current pathological fracture: unspecified Qualified Code(s): M81.0 - Age-related osteoporosis without current pathological fracture (8) Vitamin D deficiency Code(s): E55.9 - VITAMIN D DEFICIENCY, UNSPECIFIED Status: Acute (9) HFrEF (heart failure with reduced ejection fraction) Code(s): I50.20 - UNSPECIFIED SYSTOLIC (CONGESTIVE) HEART FAILURE Status: Resolved Qualifiers: Heart failure chronicity: unspecified Qualified Code(s): I50.20 - Unspecified systolic (congestive) heart failure (10) Borderline personality disorder Code(s): F60.3 - BORDERLINE PERSONALITY DISORDER Status: Acute - Plan Plan: Malnutrition 2/2 Anorexia - Patient with h/o longstanding anorexia, binging/purging type, but had acute worsening with decline in BMI which is why she was admitted - NG tube in place, running at 42 - weight pending for today - Olanzapine BID - recreation counselor following, appreciate recs - continue daily labs to evaluate for developing refeeding syndrome, stable today - plan is for placement at [facility] in [place] - Brother is MPOA. Depression with Suicidal Ideation - has mentioned fleeting suicidal ideation - sitter in place PICC Line infection with Staph Hominus, Sepsis resolved - afebrile for > 48h, WBC continues to improve - PICC line pulled 05/29 and sent for culture, positive for staph hominus as well as 2/2 blood cultures positive staph hominus, repeat cultures negative x48h - consulted higinio Perez recs - continue Cefazolin 2gm q8h, stop date 06/06 Left femur fracture- stable - Fall in January 2018, was supposed to follow with ortho - Dr. Funez consulted, Rec'd walker, f/u in 6-8 wks Osteoporosis - h/o multiple fractures, likely 2/2 chronic malnutrition. Pt with low vit D. - Vit D supplementation Multiple Psych DO's: Depression, Anxiety, and Borderline Personality DO - continue Prozac and Olanzapine GERD - continue protonix Elevated Liver Enzymes - downtrended Thrombocytopenia - improving - refuses lovenox, continue SCD's DVT PPx: SCD IVF: SL Code status: Full dispo: Continue nutritional rehabilitation via tube feeds today with dietary recs. Still pending placement at [facility] in [place] set for possibly the . <Alethea Jeter - Last Filed: 06/03/18 10:41> Attending Addendum - Attending Addendum Date/Time: 06/03/18 0486 I personally evaluated the patient and discussed the management with Dr. Jeter. I agree with and repeated the History, Examination, Assessment and Plan documented above with any addition or exceptions noted below. Pt had a good night apparently and in better spirits this AM. Says she doesn't understand why she can't eat. I discussed that she has purged with most meals and she voices understanding. Residuals have been less than the hourly rate. Will order CT concerning finding on CXR. Discussed with Marcos. Interdisciplinary rounds not help today, but I spoke with the team members individually. <Don Lu - Last Filed: 06/03/18 14:17>
[2018-06-03] MEDS: Gabapentin 300 MG CAP PO SCH ×3 (08:26→20:35)
[2018-06-03] MEDS: OLANZapine 5 MG TAB PO SCH (08:26)
--- NOTE | 2018-06-03 18:40 | CT ---
CHEST CT WITHOUT CONTRAST: 06/03/18 HISTORY: Evaluate lung nodule. COMPARISON: Chest radiograph 05/31/18. TECHNIQUE: Noncontrast head CT is performed in the axial plane. Reformatted images are submitted. FINDINGS: Limited evaluation of the mediastinal structures due to lack of IV contrast. No mediastinal mass, lym phadenopathy, or hematoma. Heart size is normal. No pericardial fluid. The visualized aorta has a nor mal caliber. No periaortic fat stranding. The visualized upper solid organs are unremarkable. Nasogastric tube terminates in the stomach. No lytic or blastic lesions in the osseous structures. Lungs are hyperinflated. There is a small bleb in the posterior right upper lobe measuring 0.5 cm. Mi nimal areas of scarring and atelectasis in both lower lobes and the lingula. There are no solid edwin s. No nodules. Trachea and central bronchi are patent. No pneumothorax. There is no CT finding corresponding to the abnormality reported on the radiograph from 05/31/18. IMPRESSION: No evidence of a left lung nodule. POS: [facility]
[2018-06-03] MEDS: OLANZapine 2.5 MG TAB PO SCH (20:35)
[2018-06-03] MEDS: FLUoxetine HCl 20 MG CAP PO SCH (20:35)
[2018-06-03] MEDS: Melatonin 3 MG TAB PO PRN (22:11)
[2018-06-04 05:13] LABS: #Eosinphils 0.1 thou/uL (0.0-0.7); #Monocytes 0.5 thou/uL (0.11-0.59); #Neutrophils 3.3 thou/uL (1.40-6.50); %Basophils 0.4 % (0.0-1.0); %Eosinophils 2.4 % (0.0-10.0); %Lymphocytes 19.4 % (21.0-51.0); %Neutrophils 67.8 % (42.0-75.0); Hemoglobin 10.1 g/dL (12.0-16.0); Mean Corpuscular Hemoglobin 30.2 pg (27.0-31.0); Mean Corpuscular Volume 94.4 fL (78.0-98.0); Mean Platelet Volume 11.9 fL (7.4-10.4); Platelet Count 154 thou/uL (130-400); Red Blood Cell (RBC) Count 3.34 mill/uL (4.20-5.40); White Blood Cell (WBC) Count 4.9 thou/uL (4.8-10.8)
[2018-06-04 05:24] LABS: ALT (SGPT) 13 U/L (8-55); AST (SGOT) 31 U/L (5-34); Albumin 3.4 g/dL (3.5-5.0); Alkaline Phosphatase 142 U/L (40-150); Anion Gap 13 mmol/L (10-20); BUN (Urea Nitrogen) 13 mg/dL (7.0-18.7); Bilirubin, Total 0.2 mg/dL (0.2-1.2); Calc. Creatinine Clearance 71 mL/min (70-130); Calcium 9.1 mg/dL (7.8-10.44); Carbon Dioxide 28 mmol/L (22-29); Chloride 105 mmol/L (98-107); Estimated GFR-MDRD Greater than 90; Globulin 2.9 g/dL (2.4-3.5); Glucose 135 mg/dL (70-105); Phosphorus 4.4 mg/dL (2.3-4.7); Protein, Total 6.3 g/dL (6.0-8.3); Sodium 142 mmol/L (136-145)
--- NOTE | 2018-06-04 06:26 | PDOC.FM ---
- Subjective Subjective: Patient is doing well this morning. Complaining of being hungry- she called last night to ask for food, but was denied. She is not allowed to have more than hard candies due to her history of binging and purging (purging up her NG tube). This was discussed with her last night and she is aware. - Objective Vital Signs & Weight: Weight Admit Weight 36.514 kg Weight 39.463 kg I&O: 06/02/18 06/03/18 06/04/18 06:59 06:59 06:59 Intake Total 870 1330 Balance 870 1330 Result Diagrams: 06/04/18 04:28 06/04/18 04:28 <Yelena De Leon - Last Filed: 06/04/18 09:59> - Objective Vital Signs & Weight: Vital Signs (12 hours) Temp Pulse Resp BP Pulse Ox 06/05/18 11:10 98.2 F 63 16 83/48 L 95 Weight Admit Weight 36.514 kg Weight 39.009 kg I&O: 06/04/18 06/05/18 06/06/18 06:59 06:59 06:59 Intake Total 200 2344 1836 Output Total 0 Balance 200 2344 1836 Result Diagrams: 06/05/18 03:52 06/05/18 03:52 <Don Lu - Last Filed: 06/05/18 22:54> Phys Exam - Physical Examination Constitutional: NAD cachectic appearing HEENT: moist MMs Respiratory: no wheezing, clear to auscultation bilateral Cardiovascular: RRR, no significant murmur Gastrointestinal: soft, non-tender, positive bowel sounds Musculoskeletal: no edema, pulses present Psychiatric: normal affect <Yelena De Leon - Last Filed: 06/04/18 09:59> Dx/Plan (1) Anorexia nervosa with bulimia Code(s): F50.02 - ANOREXIA NERVOSA, BINGE EATING/PURGING TYPE Status: Resolved (2) Anxiety Code(s): F41.9 - ANXIETY DISORDER, UNSPECIFIED Status: Chronic (3) Borderline personality disorder Code(s): F60.3 - BORDERLINE PERSONALITY DISORDER Status: Chronic (4) Depression Code(s): F32.9 - MAJOR DEPRESSIVE DISORDER, SINGLE EPISODE, UNSPECIFIED Status : Chronic Qualifiers: Depression Type: major depressive disorder Major depression recurrence: unspecified whether recurrent Active/Remission status: remission status unspecified Qualified Code(s): F32.9 - Major depressive disorder, single episode, unspecified (5) Femur fracture, left Code(s): S72.92XA - UNSP FRACTURE OF LEFT FEMUR, INIT ENCNTR FOR CLOSED FRACTURE Status: Chronic Qualifiers: Fracture alignment: nondisplaced (6) Malnutrition due to starvation Code(s): E46 - UNSPECIFIED PROTEIN-CALORIE MALNUTRITION Status: Chronic (7) Osteoporosis Code(s): M81.0 - AGE-RELATED OSTEOPOROSIS W/O CURRENT PATHOLOGICAL FRACTURE Status: Chronic Qualifiers: Osteoporosis type: unspecified Presence of current pathological fracture: unspecified Qualified Code(s): M81.0 - Age-related osteoporosis without current pathological fracture (8) Vitamin D deficiency Code(s): E55.9 - VITAMIN D DEFICIENCY, UNSPECIFIED Status: Chronic (9) HFrEF (heart failure with reduced ejection fraction) Code(s): I50.20 - UNSPECIFIED SYSTOLIC (CONGESTIVE) HEART FAILURE Status: Chronic Qualifiers: Heart failure chronicity: unspecified Qualified Code(s): I50.20 - Unspecified systolic (congestive) heart failure (10) Sepsis Code(s): A41.9 - SEPSIS, UNSPECIFIED ORGANISM Status: Chronic - Plan Plan: Malnutrition 2/2 Anorexia - Patient with h/o longstanding anorexia, binging/purging type, but had acute worsening with decline in BMI which is why she was admitted - NG tube was at 25 and was replaced to 65cm; feeds running at 42 -Repeat KUB pending - Foster bags to ensure she is not turning on and off her feeds - continue to monitor her weight - Olanzapine BID - photography manager following, appreciate recs - continue daily labs to evaluate for developing refeeding syndrome, stable currently - plan is for placement at [facility] in [place] - Brother is MPOA. Depression with Suicidal Ideation - has mentioned fleeting suicidal ideation - sitter in place PICC Line infection with Staph Hominus, Sepsis resolved - afebrile for > 48h, WBC continues to improve - PICC line pulled 05/29 and sent for culture, positive for staph hominus as well as 2/2 blood cultures positive staph hominus, repeat cultures negative x48h - consulted Ana, appreciate recs - continue Cefazolin 2gm q8h, stop date 06/06 Left femur fracture- stable - Fall in January 2018, was supposed to follow with ortho - Dr. Funez consulted, Rec'd walker, f/u in 6-8 wks Osteoporosis - h/o multiple fractures, likely 2/2 chronic malnutrition. Pt with low vit D. - Vit D supplementation Multiple Psych DO's: Depression, Anxiety, and Borderline Personality DO - continue Prozac and Olanzapine GERD - continue protonix Elevated Liver Enzymes - downtrended Thrombocytopenia - improving - refuses lovenox, continue SCD's Concern for Lung Nodule on CXR -CTA negative for left lung nodule DVT PPx: SCD IVF: SL Code status: Full dispo: Continue nutritional rehabilitation via tube feeds. Still pending placement at [facility] in [place] set for possibly the . <Yelena De Leon - Last Filed: 06/04/18 09:59> Attending Addendum - Attending Addendum Date/Time: 06/05/18 0448 I personally evaluated the patient and discussed the management with Dr. De Leon. Seen and examined on 06/04. I agree with the History, Examination, Assessment and Plan documented above with any addition or exceptions noted below. Continue tube feeds. Increase by 5 cc/hr. Monitor for refeeding. Continue sitter. <Don Lu - Last Filed: 06/05/18 22:54>
[2018-06-04] MEDS: CEFAZOLIN 2 GM/50 ML-DEXTROSE 2 GM in Premix Bag 1 BAG IVPB SCH ×2 (08:20→16:33)
[2018-06-04] MEDS: OLANZapine 5 MG TAB PO SCH (08:21)
[2018-06-04] MEDS: Gabapentin 300 MG CAP PO SCH ×3 (08:21→21:26)
--- NOTE | 2018-06-04 11:25 | RAD ---
ABDOMEN 1 VIEW: Date: 06/04/18 HISTORY: Dobbhoff tube placement. FINDINGS/IMPRESSION: There is a Dobbhoff tube with tip in the stomach. POS: [facility]
[2018-06-04] MEDS: Enoxaparin Sodium 30 MG/0.3 ML SYRINGE SC SCH ×2 (18:53→23:57)
[2018-06-04] MEDS: FLUoxetine HCl 20 MG CAP PO SCH (21:26)
[2018-06-04] MEDS: Melatonin 3 MG TAB PO PRN (21:27)
[2018-06-04] MEDS: OLANZapine 2.5 MG TAB PO SCH (21:41)
[2018-06-05] MEDS: CEFAZOLIN 2 GM/50 ML-DEXTROSE 2 GM in Premix Bag 1 BAG IVPB SCH ×3 (00:18→17:48)
[2018-06-05 04:05] LABS: #Basophils 0.1 thou/uL (0.0-0.2); #Eosinphils 0.2 thou/uL (0.0-0.7); #Lymphocytes 1.3 thou/uL (1.20-3.40); #Monocytes 0.8 thou/uL (0.11-0.59); #Neutrophils 5.5 thou/uL (1.40-6.50); %Basophils 0.8 % (0.0-1.0); %Eosinophils 3.1 % (0.0-10.0); %Lymphocytes 16.7 % (21.0-51.0); %Monocytes 10.4 % (0.0-10.0); Hemoglobin 10.1 g/dL (12.0-16.0); Mean Corpuscular HGB CONC 32.7 g/dL (32.0-36.0); Mean Corpuscular Hemoglobin 30.9 pg (27.0-31.0); Mean Corpuscular Volume 94.4 fL (78.0-98.0); Mean Platelet Volume 11.8 fL (7.4-10.4); Platelet Count 158 thou/uL (130-400); RBC Distribution Width 14.1 % (11.5-14.5); Red Blood Cell (RBC) Count 3.28 mill/uL (4.20-5.40)
[2018-06-05 04:33] LABS: ALT (SGPT) 11 U/L (8-55); AST (SGOT) 29 U/L (5-34); Albumin 3.4 g/dL (3.5-5.0); Alkaline Phosphatase 145 U/L (40-150); Anion Gap 12 mmol/L (10-20); BUN (Urea Nitrogen) 14 mg/dL (7.0-18.7); Bilirubin, Total 0.2 mg/dL (0.2-1.2); Calc. Creatinine Clearance 69 mL/min (70-130); Calcium 8.8 mg/dL (7.8-10.44); Carbon Dioxide 30 mmol/L (22-29); Chloride 104 mmol/L (98-107); Estimated GFR-MDRD Greater than 90; Globulin 2.5 g/dL (2.4-3.5); Glucose 107 mg/dL (70-105); Protein, Total 5.9 g/dL (6.0-8.3); Sodium 142 mmol/L (136-145)
--- NOTE | 2018-06-05 06:04 | PDOC.FM ---
- Subjective Subjective: Patient has no complaints this morning. Overnight, she was sneaking crackers and poptarts. Unsure of where she got them from. She denies vomiting overnight and has had no reported episodes of purging. - Objective Vital Signs & Weight: Vital Signs (12 hours) Temp Pulse Resp BP Pulse Ox 06/04/18 19:47 95 06/04/18 19:25 98.4 F 80 16 92/61 95 Weight Admit Weight 36.514 kg Weight 38.555 kg I&O: 06/03/18 06/04/18 06/05/18 06:59 06:59 06:59 Intake Total 1330 200 500 Output Total 0 Balance 1330 200 500 Result Diagrams: 06/05/18 03:52 06/05/18 03:52 <Yelena De Leon - Last Filed: 06/05/18 07:53> - Objective Vital Signs & Weight: Vital Signs (12 hours) Temp Pulse Resp BP Pulse Ox 06/05/18 11:10 98.2 F 63 16 83/48 L 95 Weight Admit Weight 36.514 kg Weight 39.009 kg I&O: 06/04/18 06/05/18 06/06/18 06:59 06:59 06:59 Intake Total 200 2344 1836 Output Total 0 Balance 200 2344 1836 Result Diagrams: 06/05/18 03:52 06/05/18 03:52 <Don Lu - Last Filed: 06/05/18 22:57> Phys Exam - Physical Examination Constitutional: NAD Respiratory: no wheezing, clear to auscultation bilateral Cardiovascular: RRR, no significant murmur Gastrointestinal: soft, non-tender, positive bowel sounds Musculoskeletal: no edema, pulses present Neurological: moves all 4 limbs Psychiatric: normal affect <Yelena De Leon - Last Filed: 06/05/18 07:53> Dx/Plan (1) Anorexia nervosa with bulimia Code(s): F50.02 - ANOREXIA NERVOSA, BINGE EATING/PURGING TYPE Status: Resolved (2) Anxiety Code(s): F41.9 - ANXIETY DISORDER, UNSPECIFIED Status: Chronic (3) Borderline personality disorder Code(s): F60.3 - BORDERLINE PERSONALITY DISORDER Status: Chronic (4) Depression Code(s): F32.9 - MAJOR DEPRESSIVE DISORDER, SINGLE EPISODE, UNSPECIFIED Status : Chronic Qualifiers: Depression Type: major depressive disorder Major depression recurrence: unspecified whether recurrent Active/Remission status: remission status unspecified Qualified Code(s): F32.9 - Major depressive disorder, single episode, unspecified (5) Femur fracture, left Code(s): S72.92XA - UNSP FRACTURE OF LEFT FEMUR, INIT ENCNTR FOR CLOSED FRACTURE Status: Chronic Qualifiers: Fracture alignment: nondisplaced (6) Malnutrition due to starvation Code(s): E46 - UNSPECIFIED PROTEIN-CALORIE MALNUTRITION Status: Chronic (7) Osteoporosis Code(s): M81.0 - AGE-RELATED OSTEOPOROSIS W/O CURRENT PATHOLOGICAL FRACTURE Status: Chronic Qualifiers: Osteoporosis type: unspecified Presence of current pathological fracture: unspecified Qualified Code(s): M81.0 - Age-related osteoporosis without current pathological fracture (8) Vitamin D deficiency Code(s): E55.9 - VITAMIN D DEFICIENCY, UNSPECIFIED Status: Chronic (9) HFrEF (heart failure with reduced ejection fraction) Code(s): I50.20 - UNSPECIFIED SYSTOLIC (CONGESTIVE) HEART FAILURE Status: Chronic Qualifiers: Heart failure chronicity: unspecified Qualified Code(s): I50.20 - Unspecified systolic (congestive) heart failure (10) Sepsis Code(s): A41.9 - SEPSIS, UNSPECIFIED ORGANISM Status: Chronic - Plan Plan: Malnutrition 2/2 Anorexia - Patient with h/o longstanding anorexia, binging/purging type, but had acute worsening with decline in BMI which is why she was admitted - NG tube replaced yesterday, XR shows tip is in stomach - Feeds increased yesterday - Patient is sneaking food: she is allowed to have ONLY hard candies and the soda that was discussed. - Discontinued marking bags- the same bag is refilled so we will not be able to track feeds this way - continue to monitor her weight - Olanzapine BID - brigadier following, appreciate recs - continue daily labs to evaluate for developing refeeding syndrome, stable currently -Phos stable at 4.0 - plan is for placement at [facility] in [place] - Brother is MPOA. Depression with Suicidal Ideation - has mentioned fleeting suicidal ideation - sitter in place PICC Line infection with Staph Hominus, Sepsis resolved - afebrile for > 48h, WBC continues to improve - PICC line pulled 05/29 and sent for culture, positive for staph hominus as well as 2/2 blood cultures positive staph hominus, repeat cultures negative x48h - consulted higinio Perezs - continue Cefazolin 2gm q8h, stop date 06/06 Left femur fracture- stable - Fall in January 2018, was supposed to follow with ortho - Dr. Funez consulted, Rec'd walker, f/u in 6-8 wks Osteoporosis - h/o multiple fractures, likely 2/2 chronic malnutrition. Pt with low vit D. - Vit D supplementation Multiple Psych DO's: Depression, Anxiety, and Borderline Personality DO - continue Prozac and Olanzapine GERD - continue protonix Elevated Liver Enzymes - downtrended Thrombocytopenia - resolved - refuses lovenox, continue SCD's Concern for Lung Nodule on CXR -CTA negative for left lung nodule DVT PPx: SCD IVF: SL Code status: Full <Yelena De Leon - Last Filed: 06/05/18 07:53> Attending Addendum - Attending Addendum Date/Time: 06/05/18 6560 I personally evaluated the patient and discussed the management with Dr. De Leon. I agree with the History, Examination, Assessment and Plan documented above with any addition or exceptions noted below. In good spirits today. Increase TF by 5 cc/hr again today. Will contact Mark tomorrow. Discussed with patient. <Don Lu - Last Filed: 06/05/18 22:57>
[2018-06-05] MEDS: Enoxaparin Sodium 30 MG/0.3 ML SYRINGE SC SCH (09:35)
[2018-06-05] MEDS: OLANZapine 5 MG TAB PO SCH (09:36)
[2018-06-05] MEDS: Gabapentin 300 MG CAP PO SCH ×3 (09:36→21:50)
[2018-06-05] MEDS: FLUoxetine HCl 20 MG CAP PO SCH (21:50)
[2018-06-05] MEDS: OLANZapine 2.5 MG TAB PO SCH (21:51)
[2018-06-05] MEDS: Melatonin 3 MG TAB PO PRN (21:51)
[2018-06-06] MEDS: CEFAZOLIN 2 GM/50 ML-DEXTROSE 2 GM in Premix Bag 1 BAG IVPB SCH ×3 (00:13→15:34)
[2018-06-06 04:38] LABS: #Eosinphils 0.3 thou/uL (0.0-0.7); #Lymphocytes 1.2 thou/uL (1.20-3.40); #Monocytes 0.8 thou/uL (0.11-0.59); #Neutrophils 4.8 thou/uL (1.40-6.50); %Basophils 0.6 % (0.0-1.0); %Eosinophils 3.9 % (0.0-10.0); %Lymphocytes 16.9 % (21.0-51.0); %Monocytes 10.6 % (0.0-10.0); %Neutrophils 68.1 % (42.0-75.0); Hemoglobin 10.2 g/dL (12.0-16.0); Mean Corpuscular HGB CONC 31.6 g/dL (32.0-36.0); Mean Corpuscular Hemoglobin 29.8 pg (27.0-31.0); Mean Corpuscular Volume 94.3 fL (78.0-98.0); Mean Platelet Volume 11.9 fL (7.4-10.4); Platelet Count 178 thou/uL (130-400); RBC Distribution Width 14.2 % (11.5-14.5); Red Blood Cell (RBC) Count 3.43 mill/uL (4.20-5.40); White Blood Cell (WBC) Count 7.1 thou/uL (4.8-10.8)
[2018-06-06 04:51] LABS: ALT (SGPT) 8 U/L (8-55); AST (SGOT) 25 U/L (5-34); Albumin 3.5 g/dL (3.5-5.0); Alkaline Phosphatase 148 U/L (40-150); Anion Gap 10 mmol/L (10-20); BUN (Urea Nitrogen) 18 mg/dL (7.0-18.7); Bilirubin, Total 0.2 mg/dL (0.2-1.2); Calc. Creatinine Clearance 67 mL/min (70-130); Calcium 9.3 mg/dL (7.8-10.44); Carbon Dioxide 32 mmol/L (22-29); Chloride 103 mmol/L (98-107); Estimated GFR-MDRD Greater than 90; Globulin 2.9 g/dL (2.4-3.5); Glucose 95 mg/dL (70-105); Potassium 4.3 mmol/L (3.5-5.1); Protein, Total 6.4 g/dL (6.0-8.3); Sodium 141 mmol/L (136-145)
[2018-06-06] MEDS: OLANZapine 5 MG TAB PO SCH (08:20)
[2018-06-06] MEDS: Enoxaparin Sodium 30 MG/0.3 ML SYRINGE SC SCH (08:20)
[2018-06-06] MEDS: Gabapentin 300 MG CAP PO SCH ×3 (08:20→21:11)
--- NOTE | 2018-06-06 09:53 | PDOC.FM ---
- Subjective Subjective: Patient doing well this AM. No significant overnight events. Patient states she has been doing ok. She feels like she is making the right choice in agreeing to go to [facility] for herself and her family. She was tearful during conversation today. She states she is very gracious for the care we have been providing her, and she hopes that her case will help others like her one day. She states, "I have had intermittent episodes of vomiting, but I kept everything down when the nose tube came out a few days ago". She would like to have some "real" food. - Objective MAR Reviewed: Yes Vital Signs & Weight: Vital Signs (12 hours) Temp Pulse Resp BP Pulse Ox 06/06/18 08:19 98.1 F 74 16 93/60 97 Weight Admit Weight 36.514 kg Weight 38.555 kg I&O: 06/05/18 06/06/18 06/07/18 06:59 06:59 06:59 Intake Total 2344 4120 Balance 2344 4120 Result Diagrams: 06/06/18 04:14 06/06/18 04:14 EKG Reviewed by me: Yes Radiology Reviewed by me: Yes <Miri Hammond - Last Filed: 06/06/18 10:34> - Objective Vital Signs & Weight: Vital Signs (12 hours) Temp Pulse Ox 06/07/18 02:38 97.8 F 06/06/18 20:00 96 Weight Admit Weight 36.514 kg Weight 38.555 kg I&O: 06/06/18 06/07/18 06/08/18 06:59 06:59 06:59 Intake Total 4120 2594 Output Total 1 Balance 4120 2593 Result Diagrams: 06/07/18 04:30 06/07/18 04:30 <Don Lu - Last Filed: 06/07/18 07:56> Phys Exam - Physical Examination Constitutional: NAD Cachectic appearing HEENT: moist MMs NG tube in place, left nostril Respiratory: clear to auscultation bilateral Cardiovascular: no significant murmur Bradycardia Gastrointestinal: soft, no distention Musculoskeletal: no edema, pulses present Neurological: non-focal Psychiatric: A&O x 3 Deviation from normal: Tearful Skin: no rash, cap refill <2 seconds <Miri Hammond - Last Filed: 06/06/18 10:34> Dx/Plan (1) Severe protein-calorie malnutrition Code(s): E43 - UNSPECIFIED SEVERE PROTEIN-CALORIE MALNUTRITION Status: Acute (2) Anorexia nervosa with bulimia Code(s): F50.02 - ANOREXIA NERVOSA, BINGE EATING/PURGING TYPE Status: Resolved (3) Anxiety Code(s): F41.9 - ANXIETY DISORDER, UNSPECIFIED Status: Chronic (4) Depression Code(s): F32.9 - MAJOR DEPRESSIVE DISORDER, SINGLE EPISODE, UNSPECIFIED Status : Chronic Qualifiers: Depression Type: major depressive disorder Major depression recurrence: unspecified whether recurrent Active/Remission status: remission status unspecified Qualified Code(s): F32.9 - Major depressive disorder, single episode, unspecified (5) Osteoporosis Code(s): M81.0 - AGE-RELATED OSTEOPOROSIS W/O CURRENT PATHOLOGICAL FRACTURE Status: Chronic Qualifiers: Osteoporosis type: unspecified Presence of current pathological fracture: unspecified Qualified Code(s): M81.0 - Age-related osteoporosis without current pathological fracture (6) Vitamin D deficiency Code(s): E55.9 - VITAMIN D DEFICIENCY, UNSPECIFIED Status: Chronic (7) HFrEF (heart failure with reduced ejection fraction) Code(s): I50.20 - UNSPECIFIED SYSTOLIC (CONGESTIVE) HEART FAILURE Status: Chronic Qualifiers: Heart failure chronicity: unspecified Qualified Code(s): I50.20 - Unspecified systolic (congestive) heart failure - Plan Plan: Severe protein malnutrition 2/2 Anorexia Nervosa - Patient with h/o longstanding anorexia, binging/purging type, but had acute worsening with decline in BMI which is why she was admitted - NG tube replaced 2 days ago; patient receiving feeds through tube - Continuing to increase feeds; will discuss goal at interdisciplinary rounds today at 11:30 AM - Will allow patient to have 2 supervised snacks per day - Continue to monitor her weight; BMI 11.5 today - Olanzapine BID - [employer] Operator Helper following, appreciate recs - Continue daily labs to evaluate for refeeding syndrome, stable currently - Plan is for placement at [facility] in [place]; Physician at [facility] to review case today around 10-12 AM. Pending physician acceptance, will await approval for bed. Called Nelda at [facility] this AM. Left message for return call. Would like to discuss plan going forward. - Brother is MPOA Depression with Suicidal Ideation - Has mentioned fleeting suicidal ideation - Sitter in place - No suicidal ideation today; patient states her family is her reason to live - Continue SSRI PICC Line infection with Staph Hominus, Sepsis resolved - Afebrile for > 48h, WBC continues to improve - PICC line pulled 05/29 and sent for culture, positive for staph hominus as well as 2/2 blood cultures positive staph hominus, repeat cultures negative x48h - Consulted higinio Perez recs - Continue Cefazolin 2gm q8h, stop date 06/06 (today) Left femur fracture - stable - Fall in January 2018, was supposed to follow with ortho - Dr. Funez consulted, Rec'd walker, f/u in 6-8 wks - Calcium supplementation Osteoporosis 2/2 malnutrition - h/o multiple fractures, likely 2/2 chronic malnutrition. Pt with low vit D. - Vit D supplementation Multiple Psych DO's: Depression, Anxiety, and Borderline Personality DO - Continue Prozac and Olanzapine GERD - Continue protonix Elevated Liver Enzymes - Downtrended Thrombocytopenia - Resolved - Refuses lovenox, continue SCD's Concern for Lung Nodule on CXR - CTA negative for left lung nodule DVT PPx: SCD, patient has been ambulating with assistance of walker/wheelchair IVF: SL Code status: Full Dispo: Patient stable. [facility] physician to review case today. Pending acceptance, will await bed placement. <Miri Hammond - Last Filed: 06/06/18 10:34> Attending Addendum - Attending Addendum Date/Time: 06/07/18 2356 I personally evaluated the patient and discussed the management with Dr. Hammond on 06/06/2018. I agree with the History, Examination, Assessment and Plan documented above with any addition or exceptions noted below. Completing antibiotics. 2 supervised snacks. Await Mark review of records with hopeful acceptance. <Don Lu - Last Filed: 06/07/18 07:56>
[2018-06-06 12:30] VITALS: BMI 11.5
[2018-06-06] MEDS: FLUoxetine HCl 20 MG CAP PO SCH (21:11)
[2018-06-06] MEDS: OLANZapine 2.5 MG TAB PO SCH (21:12)
[2018-06-06] MEDS: Melatonin 3 MG TAB PO PRN (22:17)
[2018-06-07] MEDS: CEFAZOLIN 2 GM/50 ML-DEXTROSE 2 GM in Premix Bag 1 BAG IVPB SCH ×2 (00:39→09:29)
[2018-06-07 05:06] LABS: #Eosinphils 0.2 thou/uL (0.0-0.7); #Lymphocytes 1.1 thou/uL (1.20-3.40); #Monocytes 0.9 thou/uL (0.11-0.59); #Neutrophils 4.2 thou/uL (1.40-6.50); %Basophils 0.5 % (0.0-1.0); %Eosinophils 3.7 % (0.0-10.0); %Lymphocytes 17.4 % (21.0-51.0); %Monocytes 13.6 % (0.0-10.0); %Neutrophils 64.8 % (42.0-75.0); Hemoglobin 10.5 g/dL (12.0-16.0); Mean Corpuscular HGB CONC 31.9 g/dL (32.0-36.0); Mean Corpuscular Hemoglobin 30.1 pg (27.0-31.0); Mean Corpuscular Volume 94.4 fL (78.0-98.0); Mean Platelet Volume 12.1 fL (7.4-10.4); Platelet Count 174 thou/uL (130-400); RBC Distribution Width 14.1 % (11.5-14.5); Red Blood Cell (RBC) Count 3.48 mill/uL (4.20-5.40); White Blood Cell (WBC) Count 6.4 thou/uL (4.8-10.8)
[2018-06-07 05:09] LABS: ALT (SGPT) Less than 7 U/L (8-55); AST (SGOT) 25 U/L (5-34); Albumin 3.7 g/dL (3.5-5.0); Alkaline Phosphatase 158 U/L (40-150); Anion Gap 13 mmol/L (10-20); BUN (Urea Nitrogen) 20 mg/dL (7.0-18.7); Bilirubin, Total 0.2 mg/dL (0.2-1.2); Calc. Creatinine Clearance 64 mL/min (70-130); Calcium 9.3 mg/dL (7.8-10.44); Carbon Dioxide 29 mmol/L (22-29); Chloride 103 mmol/L (98-107); Estimated GFR-MDRD Greater than 90; Globulin 3.1 g/dL (2.4-3.5); Glucose 89 mg/dL (70-105); Protein, Total 6.8 g/dL (6.0-8.3); Sodium 141 mmol/L (136-145)
--- NOTE | 2018-06-07 08:23 | PDOC.FM ---
- Subjective Subjective: Patient was allowed to have 2 small supervised snacks yesterday. Patient reportedly vomited 1000 mL last night. She was also attempting to sneak downstairs to get crackers and soda. She has been angry that she is not getting more soda. She is really frustrated that she is still here. - Objective MAR Reviewed: Yes Vital Signs & Weight: Vital Signs (12 hours) Temp 06/07/18 02:38 97.8 F Weight Admit Weight 36.514 kg Weight 38.555 kg I&O: 06/06/18 06/07/18 06/08/18 06:59 06:59 06:59 Intake Total 4120 2594 Output Total 1 Balance 4120 2593 Result Diagrams: 06/07/18 04:30 06/07/18 04:30 EKG Reviewed by me: Yes Radiology Reviewed by me: No <Miri Hammond - Last Filed: 06/07/18 09:04> - Objective Vital Signs & Weight: Weight Admit Weight 36.514 kg Weight 38.102 kg Result Diagrams: 06/08/18 04:20 06/08/18 04:20 <Don Lu - Last Filed: 06/12/18 20:44> Phys Exam - Physical Examination Constitutional: NAD Cachectic appearing HEENT: moist MMs Neck: supple Respiratory: clear to auscultation bilateral Cardiovascular: RRR Gastrointestinal: soft Musculoskeletal: no edema, pulses present Neurological: non-focal Psychiatric: A&O x 3 Skin: no rash, cap refill <2 seconds <Miri Hammond - Last Filed: 06/07/18 09:04> Dx/Plan (1) Severe protein-calorie malnutrition Code(s): E43 - UNSPECIFIED SEVERE PROTEIN-CALORIE MALNUTRITION Status: Acute (2) Anorexia nervosa with bulimia Code(s): F50.02 - ANOREXIA NERVOSA, BINGE EATING/PURGING TYPE Status: Resolved (3) Anxiety Code(s): F41.9 - ANXIETY DISORDER, UNSPECIFIED Status: Chronic (4) Depression Code(s): F32.9 - MAJOR DEPRESSIVE DISORDER, SINGLE EPISODE, UNSPECIFIED Status : Chronic Qualifiers: Depression Type: major depressive disorder Major depression recurrence: unspecified whether recurrent Active/Remission status: remission status unspecified Qualified Code(s): F32.9 - Major depressive disorder, single episode, unspecified (5) Osteoporosis Code(s): M81.0 - AGE-RELATED OSTEOPOROSIS W/O CURRENT PATHOLOGICAL FRACTURE Status: Chronic Qualifiers: Osteoporosis type: unspecified Presence of current pathological fracture: unspecified Qualified Code(s): M81.0 - Age-related osteoporosis without current pathological fracture (6) Vitamin D deficiency Code(s): E55.9 - VITAMIN D DEFICIENCY, UNSPECIFIED Status: Chronic (7) HFrEF (heart failure with reduced ejection fraction) Code(s): I50.20 - UNSPECIFIED SYSTOLIC (CONGESTIVE) HEART FAILURE Status: Chronic Qualifiers: Heart failure chronicity: unspecified Qualified Code(s): I50.20 - Unspecified systolic (congestive) heart failure - Plan Plan: Severe protein malnutrition 2/2 Anorexia Nervosa - Patient with h/o longstanding anorexia, binging/purging type, but had acute worsening with decline in BMI which is why she was admitted - NG tube replaced 3 days ago; patient receiving feeds through tube (2nd time tube has had to be replaced) - Goal feeds of 57 mL/hr; patient at 57 mL/hr currently. - Will allow patient to have 2 small supervised snacks per day; of note, patient vomited 1000 mL per nurse last night - Continue to monitor her weight; BMI 11.5 today (stable) - Olanzapine BID - [employer] following, appreciate recs - Continue daily labs to evaluate for refeeding syndrome, stable currently - Plan is for placement at [facility] in [place]; awaiting approval by physician at facility - Brother is MPOA Depression with Suicidal Ideation - Has mentioned fleeting suicidal ideation - Sitter in place - No suicidal ideation today; patient states her family is her reason to live - Continue SSRI PICC Line infection with Staph Hominus, Sepsis resolved (patient no longer with PICC line in place) - Afebrile for > 48h, WBC continues to improve - PICC line pulled 05/29 and sent for culture, positive for staph hominus as well as 2/2 blood cultures positive staph hominus, repeat cultures negative x48h - Consulted Ana, higinio recs - Patient completed course of antibiotics Left femur fracture - stable - Fall in January 2018, was supposed to follow with ortho - Dr. Funez consulted, Rec'd twyla, f/u in 6-8 wks - Calcium supplementation Osteoporosis 2/2 malnutrition - h/o multiple fractures, likely 2/2 chronic malnutrition. Pt with low vit D. - Vit D supplementation Multiple Psych DO's: Depression, Anxiety, and Borderline Personality DO - Continue Prozac and Olanzapine GERD - Continue protonix Elevated Liver Enzymes - Downtrended Thrombocytopenia - Resolved - Refuses lovenox, continue SCD's Concern for Lung Nodule on CXR - CTA negative for left lung nodule DVT PPx: SCD, patient has been ambulating with assistance of walker/wheelchair IVF: SL Code status: Full Dispo: Patient stable. [facility]. <Miri Hammond - Last Filed: 06/07/18 09:04> Attending Addendum - Attending Addendum Date/Time: 06/12/182043 I personally evaluated the patient and discussed the management with Dr. Hammond on day of note creation. I agree with the History, Examination, Assessment and Plan documented above with any addition or exceptions noted below. <Don Lu - Last Filed: 06/12/18 20:44>
[2018-06-07] MEDS: Enoxaparin Sodium 30 MG/0.3 ML SYRINGE SC SCH (09:28)
[2018-06-07] MEDS: Gabapentin 300 MG CAP PO SCH ×3 (09:29→20:25)
[2018-06-07] MEDS: OLANZapine 5 MG TAB PO SCH (09:29)
[2018-06-07] MEDS: FLUoxetine HCl 20 MG CAP PO SCH (20:24)
[2018-06-07] MEDS: OLANZapine 2.5 MG TAB PO SCH (20:25)
[2018-06-08 04:41] LABS: #Eosinphils 0.2 thou/uL (0.0-0.7); #Lymphocytes 1.1 thou/uL (1.20-3.40); #Monocytes 0.8 thou/uL (0.11-0.59); %Basophils 0.6 % (0.0-1.0); %Eosinophils 3.3 % (0.0-10.0); %Lymphocytes 17.5 % (21.0-51.0); %Monocytes 12.6 % (0.0-10.0); Hemoglobin 9.9 g/dL (12.0-16.0); Mean Corpuscular HGB CONC 31.2 g/dL (32.0-36.0); Mean Corpuscular Hemoglobin 29.6 pg (27.0-31.0); Mean Corpuscular Volume 94.8 fL (78.0-98.0); Mean Platelet Volume 11.8 fL (7.4-10.4); Platelet Count 147 thou/uL (130-400); RBC Distribution Width 13.8 % (11.5-14.5); Red Blood Cell (RBC) Count 3.33 mill/uL (4.20-5.40)
[2018-06-08 05:17] LABS: ALT (SGPT) Less than 7 U/L (8-55); AST (SGOT) 25 U/L (5-34); Albumin 3.5 g/dL (3.5-5.0); Alkaline Phosphatase 144 U/L (40-150); Anion Gap 14 mmol/L (10-20); BUN (Urea Nitrogen) 22 mg/dL (7.0-18.7); Bilirubin, Total 0.2 mg/dL (0.2-1.2); Calc. Creatinine Clearance 70 mL/min (70-130); Calcium 8.9 mg/dL (7.8-10.44); Carbon Dioxide 27 mmol/L (22-29); Chloride 106 mmol/L (98-107); Estimated GFR-MDRD Greater than 90; Globulin 2.9 g/dL (2.4-3.5); Glucose 89 mg/dL (70-105); Potassium 4.2 mmol/L (3.5-5.1); Protein, Total 6.4 g/dL (6.0-8.3); Sodium 143 mmol/L (136-145)
--- NOTE | 2018-06-08 06:33 | PDOC.FM ---
- Subjective Subjective: Patient was in good spirits this AM. She was excited, yet anxious to go to [place]. She understands that she will be discharged home today at noon with plan for flight at 6 PM. - Objective MAR Reviewed: Yes Vital Signs & Weight: Vital Signs (12 hours) Temp Pulse Resp BP Pulse Ox 06/07/18 20:00 98.1 F 67 18 99/65 93 L Weight Admit Weight 36.514 kg Weight 38.102 kg I&O: 06/06/18 06/07/18 06/08/18 06:59 06:59 06:59 Intake Total 4120 2594 2419 Output Total 1 1 Balance 4120 6458 4097 Result Diagrams: 06/08/18 04:20 06/08/18 04:20 EKG Reviewed by me: No Radiology Reviewed by me: No <Miri Hammond - Last Filed: 06/08/18 09:29> - Objective Vital Signs & Weight: Weight Admit Weight 36.514 kg Weight 38.102 kg Result Diagrams: 06/08/18 04:20 06/08/18 04:20 <Betty Vázquez - Last Filed: 06/13/18 09:59> Phys Exam - Physical Examination Constitutional: NAD Cachectic appearing HEENT: moist MMs Neck: supple Respiratory: clear to auscultation bilateral Cardiovascular: RRR, no significant murmur Gastrointestinal: soft, non-tender Musculoskeletal: no edema, pulses present Neurological: non-focal Psychiatric: normal affect, A&O x 3 Skin: no rash, cap refill <2 seconds <Miri Hammond - Last Filed: 06/08/18 09:29> Dx/Plan (1) Severe protein-calorie malnutrition Code(s): E43 - UNSPECIFIED SEVERE PROTEIN-CALORIE MALNUTRITION Status: Acute (2) Anorexia nervosa with bulimia Code(s): F50.02 - ANOREXIA NERVOSA, BINGE EATING/PURGING TYPE Status: Resolved (3) Anxiety Code(s): F41.9 - ANXIETY DISORDER, UNSPECIFIED Status: Chronic (4) Depression Code(s): F32.9 - MAJOR DEPRESSIVE DISORDER, SINGLE EPISODE, UNSPECIFIED Status : Chronic Qualifiers: Depression Type: major depressive disorder Major depression recurrence: unspecified whether recurrent Active/Remission status: remission status unspecified Qualified Code(s): F32.9 - Major depressive disorder, single episode, unspecified (5) Osteoporosis Code(s): M81.0 - AGE-RELATED OSTEOPOROSIS W/O CURRENT PATHOLOGICAL FRACTURE Status: Chronic Qualifiers: Osteoporosis type: unspecified Presence of current pathological fracture: unspecified Qualified Code(s): M81.0 - Age-related osteoporosis without current pathological fracture (6) Vitamin D deficiency Code(s): E55.9 - VITAMIN D DEFICIENCY, UNSPECIFIED Status: Chronic (7) HFrEF (heart failure with reduced ejection fraction) Code(s): I50.20 - UNSPECIFIED SYSTOLIC (CONGESTIVE) HEART FAILURE Status: Chronic Qualifiers: Heart failure chronicity: unspecified Qualified Code(s): I50.20 - Unspecified systolic (congestive) heart failure - Plan Plan: Severe protein malnutrition 2/2 Anorexia Nervosa - Patient with h/o longstanding anorexia, binging/purging type, but had acute worsening with decline in BMI which is why she was admitted - NG tube out last night. Patient took it out on her own. We opted not to replace as she is leaving today. - Continue to monitor her weight; BMI 11.4 today (stable) - Olanzapine BID - [employer] Teacher following, appreciate recs - Plan is for placement at [facility] in [place]; approved. Plan for d/c today at noon with flight at 6 PM. - Brother is MPOA Depression with Suicidal Ideation - Has mentioned fleeting suicidal ideation - Sitter in place - No suicidal ideation today; patient states her family is her reason to live - Continue SSRI PICC Line infection with Staph Hominus, Sepsis resolved (patient no longer with PICC line in place) - Afebrile for > 48h, WBC continues to improve - PICC line pulled 05/29 and sent for culture, positive for staph hominus as well as 2/2 blood cultures positive staph hominus, repeat cultures negative x48h - Consulted higinio Perez recs - Patient completed course of antibiotics Left femur fracture - stable - Fall in January 2018, was supposed to follow with ortho - Dr. Funez consulted, Rec'd twyla, f/u in 6-8 wks - Calcium supplementation Osteoporosis 2/2 malnutrition - h/o multiple fractures, likely 2/2 chronic malnutrition. Pt with low vit D. - Vit D supplementation Multiple Psych DO's: Depression, Anxiety, and Borderline Personality DO - Continue Prozac and Olanzapine GERD - Continue protonix Elevated Liver Enzymes - Downtrended Thrombocytopenia - Resolved - Refuses lovenox, continue SCD's Concern for Lung Nodule on CXR - CTA negative for left lung nodule DVT PPx: SCD, patient has been ambulating with assistance of walker/wheelchair IVF: SL Code status: Full Dispo: Patient stable. Plan for d/c at noon today. [facility] has accepted patient and has bed available. Flight to leave at 6 PM. Patient will be accompanied by her brother, Marcos. <Miri Hammond - Last Filed: 06/08/18 09:29> Attending Addendum - Attending Addendum Date/Time: 06/13/18954 I personally evaluated the patient and discussed the management with Dr. Hammond on 06/08/18 I agree with the History, Examination, Assessment and Plan documented above with any addition or exceptions noted below- Patient without complaints. Excited and anxious about discharge but ready to go. Afebrile VSS. A/P: 1) Severe protein calorie malnutrition secondary to anorexia- patient pulled NGT yesterday but taking in po nutrition. 2) Anorexia with bulemia- patient accepted to treatment facility. Plan to D/c today with family to travel to facility. 3) Depression- sitter in place. No suicidal ideations today. <Betty Vázquez - Last Filed: 06/13/18 09:59>
[2018-06-08] MEDS: Gabapentin 300 MG CAP PO SCH (09:02)
[2018-06-08] MEDS: OLANZapine 5 MG TAB PO SCH (09:02)
[2018-06-08] MEDS: Enoxaparin Sodium 30 MG/0.3 ML SYRINGE SC SCH (09:03)
[2018-06-08 10:28] VITALS: BP 120/85; TEMP 97.8
--- NOTE | 2018-06-14 10:05 | DIS ---
DATE OF ADMISSION: 05/05/2018 DATE OF DISCHARGE: 06/08/2018 ADMITTING ATTENDING: Dr. Sarah Guzmná. DISCHARGING ATTENDING: Dr. Don Lu. CONSULTATIONS: Cardiology, Orthopedics, and Infectious Disease. PROCEDURES AND IMAGING: The patient had a PICC line placement on 05/05/2018. She had an echocardiogram on 05/06, which revealed an EF of 35-40% with relatively normal valvular anatomy and subsequently had a radionuclide stress test on 05/08, which revealed no evidence of ischemia and normal ejection fraction. PRIMARY DIAGNOSES: Anorexia, severe, binge and purge subtype with acute weight loss. SECONDARY DIAGNOSES/OTHERS: Borderline personality disorder, generalized anxiety disorder, major depressive disorder, osteoporosis, history of left femur fracture, vitamin D deficiency, severe protein-calorie malnutrition, refeeding syndrome, amenorrhea, central line associated bloodstream infection, pulmonary nodule on chest x-ray with no correlated finding on CT scan, nonsustained ventricular tachycardia. DISCHARGE MEDICATIONS: gabapentin 300 mg 1 cap p.o. t.i.d., fluoxetine 20 mg 1 p.o. q.p.m., olanzapine 5 mg p.o. q.a.m. and 1.25 mg p.o. at bedtime. HISTORY OF PRESENT ILLNESS AND HOSPITAL COURSE: This is a 43-year-old female with past history as above who had significant weight loss and lost about 7-8 pounds over a short period of time down to a BMI of 11 and was subsequently admitted to the hospital. She recently unfortunately received a news that her mother has terminal brain cancer, which the patient says contributed to her weight loss. Patient was admitted to the hospital voluntarily and subsequently had a PICC line placed for IV access. Orthopedics was consulted due to her recent fractures and they recommended a rolling walker. Cardiology was consulted after nonsustained ventricular tachycardia was noted and she subsequently had a normal workup and was cleared from their perspective. The patient was attempted to be nutritionally rehabilitated by mouth throughout her stay, but demonstrated recurrent bingeing and purging behavior and attempts were made to both limit her access to the toilet and any outside non-approved snacks. She was initially given a sitter and then this was withdrawn since the patient complained. She was started on TPN due to lack of weight gain and continued to allow to be fed by mouth as well. When I came on service, she was still bingeing and purging, ad gil. The TPN had been in place without lipids. We received medical power of employment attorney from her brother, Marcos Raza, and the patient was declared to not have decision making capacity in terms of care related to her eating disorder and nutritional status. Lipids were added to the TPN, since the patient refused an NGT, and she developed mild refeeding syndrome. At a similar time, she developed a high fever and grew out Staph hominis from her PICC line. The PICC line was discontinued and she was continued on antibiotics for a total of 2 weeks. An NGT was placed with patient consent and low volume, high calorie tube feeds were started with resolution of her refeeding syndrome and was titrated up to 2700 kcals per day. Her intake was restricted for several days and then gradually she was reintroduced to snacks that were dependent upon her ability to avoid purging. During her stay, she was noted to be quite manipulative with the staff and would ask people to bring her food as well as imitate nurses on the phone to get extra food trays and apparently had stolen quite a bit from the hospital gift shop. While I was on service these last 2 weeks, we had daily multidisciplinary rounds to ensure that all providers were on the same page and multiple family meetings with Marcos and his . Meetings with them revealed extensive history of events related to her borderline personality disorder as well as her eating disorder. Her weight gradually increased to about 39 kilograms and after extensive searching, there was only one place that was willing to take her funding and that was [facility] in [place], [place]. She was kept inpatient until her case was able to be reviewed by them on the . They approved her and subsequently told her they had room available. Due to her clinical stability and after extensive discussion with the family she was deemed to be as medically stable as possible for transportation with low risk for decompensation. DISPOSITION: Stable. DISCHARGE INSTRUCTIONS: 1. Location: She is to be discharged and will go and visit her mother and then subsequently fly up with her brother to [facility] in [place], [place]. 2. Diet: We of course recommended that she ceases bingeing and purging and have three meals a day, although judging by her behavior likely will not be followed. 3. Activity: No strenuous exercise. 4. Followup: She will be seen at [facility] and then if she manages to progress there, we are happy to see her back afterwards. ARNOLD
== END 2018-06-08 10:32 | disposition short-term general hospital (02) | DRG 883 ==
LOC: EEVIPCON 19:47 → 2NO 19:47 → T4-B 05-10 10:22
PROVIDERS: ADMIT Student in an Organized Health Care Education/Training Program; ATTEND Student in an Organized Health Care Education/Training Program
PROC: 02HV33Z Insertion of Infusion Device into Superior Vena Cava, Percutaneous Approach (ICD-10-PCS; principal; 2018-05-06)
PROC: B5181ZA Fluoroscopy of Superior Vena Cava using Low Osmolar Contrast, Guidance (ICD-10-PCS; 2018-05-06)
PROC: 3E0436Z Introduction of Nutritional Substance into Central Vein, Percutaneous Approach (ICD-10-PCS; 2018-05-06)
PROC: 02PY33Z Removal of Infusion Device from Great Vessel, Percutaneous Approach (ICD-10-PCS; 2018-05-06)
DX: F50.02 Anorexia nervosa, binge eating/purging type (principal); T80.211A Bloodstream infection due to central venous catheter, initial encounter; E43 Unspecified severe protein-calorie malnutrition; R64 Cachexia; Z68.1 Body mass index [BMI] 19.9 or less, adult; I47.2 Ventricular tachycardia; I50.22 Chronic systolic (congestive) heart failure; R45.851 Suicidal ideations; F41.9 Anxiety disorder, unspecified; K21.9 Gastro-esophageal reflux disease without esophagitis; F17.210 Nicotine dependence, cigarettes, uncomplicated; Z91.81 History of falling; M80.852D Other osteoporosis with current pathological fracture, left femur, subsequent encounter for fracture with routine healing; E55.9 Vitamin D deficiency, unspecified; D69.6 Thrombocytopenia, unspecified; F32.9 Major depressive disorder, single episode, unspecified; F60.3 Borderline personality disorder
CPT/HCPCS: 36415; 36416; 36569; 71045; 71046; 71250; 74018; 78452; 80048; 80053; 80061; 80202; 81003; 82306; 82550; 82553; 82607; 82728; 82747; 83540; 83550; 83735; 84100; 84134; 84443; 84484; 84703; 85025; 85027; 85610; 85730; 87040; 87071; 87077; 87086; 87149; 87186; 87804; 93005; 93010; 93017; 93306; A4217; A9500; C1751; G8978-GP-CI; G8979-GP-CI; G8980-GP-CI; G8987-GO-CH; G8988-GO-CH; G8989-GO-CH; J1644; J1650; J2248; J2543; J2785; J3370; J3475; J3480; J7050